=== PATIENT | female | born 1960 | race Caucasian/White ===

== ENCOUNTER → 2018-01-14 | Outpatient (CLI) | payer BC ==
--- NOTE | 2018-01-18 08:03 | PE ---
EXAMINATION TYPE: PET CT fusion skull to thigh DATE OF EXAM: 01/14/2018 COMPARISON: Chest radiograph dated 02/14/2017 HISTORY: Non-small cell lung cancer. Initial staging examination/initial treatment strategy (PI). No history of chemotherapy or radiation. Prior lung biopsy and 12/29/2017 TECHNIQUE: Following the intravenous administration of 13.81 mCi of F-18 FDG, whole body images are performed from the skull base to the midthigh. Images are reviewed on the computer in the coronal, a xial, and sagittal planes. Reconstructed rotating images are created on independent workstation and reviewed on the computer. A localization and attenuation correction CT is performed in conjunction with the PET scan. SCAN: Initial FINDINGS: SKULL BASE AND NECK: There is a hypermetabolic 8 mm short axis right periparotid lymph node posterio r to the angle of mandible at level Ib. With hypermetabolic activity and a maximum SUV of 9.2. CHEST, MEDIASTINUM, AND HILAR REGION: Background aortic mediastinal uptake is 2.17. The patient's kno wn non-small cell lung carcinoma blends into the mediastinum and is poorly measured with downstream o bstructive atelectasis of the anterior segments of the left upper lobe. This mass and adenopathy david uring at least 4.9 x 5.5 cm with concern for invasion into the pericardium such as on image 95. There is encasement of the left main pulmonary artery and extensive left hilar and suprahilar adenopathy. The mass has a maximum SUV measuring up to 15.79. The maximum SUV of the left hilar adenopathy is 10. 37. Conglomeration of nodes measuring at least 5.6 x 3.7 cm in the left suprahilar region. No right-s ided hilar hypermetabolic adenopathy is identified with the largest right hilar lymph node measuring 6 mm in short axis. Precarinal lymph node as in maximum SUV of 5.22 and measures 9 mm in short axis. Hypermetabolic is seen in the left neck musculature and venous structures measuring 2.88 and 2.76, ju st above mediastinal background. Focal hypermetabolic activity is also seen within the high left para spinal musculature at the level of the hyoid bone on the left with a maximum SUV of 2.82, the right p araspinal musculature at the mid thoracic level with a maximum SUV of 5.99 and at the mid left thorac ic level with a maximum SUV of 4.37. These areas are pronounced on the mid image. ABDOMEN AND PELVIS: No suspicious hypermetabolic uptake. OSSEOUS STRUCTURES: No suspicious hypermetabolic uptake. OTHER CT: Pleural parenchymal scarring is seen at the left lung base. Scattered areas of subsegmental atelectasis are noted. There is mild to moderate background centrilobular emphysematous change. Ther e are no suspicious osseous lesions identified. Trace pericardial effusion is seen anteriorly. There is a small hiatal hernia. Unenhanced abdominal viscera are grossly unremarkable. Small splenules are seen adjacent to the [place] spleen. Moderate calcific atheromatous changes of the abdominal aorta are noted. No evidence of adenopathy within the abdomen or pelvis. The bowel is nondilated. IMPRESSION: Strongly hypermetabolic left T3 hilar and suprahilar 5.5 cm pulmonary neoplasm appearing to invade at least the pericardium with extensive surrounding left hilar hypermetabolic adenopathy an d a strongly hypermetabolic right periparotid lymph node (N3). No evidence of visceral metastasis wit hin the abdomen or pelvis or pulmonary metastasis, however there are multilevel hypermetabolic foci w ithin the paraspinal musculature of the thoracic and cervical spine that are also suspicious for meta stasis. Thoracic MR without and with contrast could be performed for further evaluation.
== END | disposition home or self-care (01) ==
LOC: RADPETMAIN 16:53
PROVIDERS: ATTEND Internal Medicine Critical Care Medicine
DX: C34.90 Malignant neoplasm of unspecified part of unspecified bronchus or lung (principal); R93.7 Abnormal findings on diagnostic imaging of other parts of musculoskeletal system
CPT/HCPCS: 78815; A9552

== ENCOUNTER → 2018-01-19 | Outpatient (CLI) | payer BC ==
[2018-01-19 09:44] LABS: Blood Urea Nitrogen 13 mg/dL (7-17)
--- NOTE | 2018-01-19 10:30 | CT ---
EXAMINATION TYPE: CT brain wo/w con DATE OF EXAM: 01/19/2018 COMPARISON: NONE HISTORY: Lung cancer CT DLP: 2071mGycm CONTRAST: CT scan of the head is performed without and with IV Contrast, patient injected with 100 mL of Omnipa que 300. Unenhanced followed by contrast enhanced CT of the brain is submitted for evaluation. The ventricles are midline. There is no evidence for intracranial hemorrhage or extra-axial collection. No mass e ffects are identified. Visualized bony calvarium is intact. Contrast subsequently Mr. and there are may be subtle areas of leptomeningeal enhancement right parietal and left frontal regions. Further ev aluation with MRI is advised. IMPRESSION: 1. No enhancing mass is identified however I cannot exclude the vague leptomeningeal enhancement. I d o recommend further evaluation with MRI of the brain with and without contrast.
== END | disposition home or self-care (01) ==
LOC: RADCTMAIN 09:05
PROVIDERS: ATTEND Radiology Radiation Oncology
DX: C34.12 Malignant neoplasm of upper lobe, left bronchus or lung (principal); J30.2 Other seasonal allergic rhinitis
CPT/HCPCS: 82565; 84520; 70470; 36415; Q9967

== ENCOUNTER → 2018-01-20 | Day surgery (SDC) | payer BC ==
[~2018-01-20] MED LIST: LIDOCAINE 2% INJ 20 MG/ML SQ ONE
[2018-01-20 10:22] VITALS: RESP 18
[2018-01-20 11:52] VITALS: TEMP 98
[2018-01-20 12:58] VITALS: BP 125/76; PULSE 122
--- NOTE | 2018-01-20 13:01 | IR ---
PICC LINE PLACEMENT: HISTORY: Infection requiring long-term antibiotic therapy PROCEDURE: Ultrasound and fluoroscopic guidance of PICC line placement. COMPLICATIONS: None ANESTHESIA: 1. 1% Lidocaine locally. FINDINGS/TECHNIQUE: The procedure was explained to the patient. The risks, complications, benefits and alternatives were discussed and any questions were answered. Informed consent was obtained. The patient was placed supine on the fluoroscopic table and prepped and draped in the usual sterile [facility] ion. Utilizing a 21 gauge needle and sonographic and fluoroscopic guidance, access in the vein was achieved and there is placement of a 0.018 guidewire. The vein is patent. A 4-F sheath was placed o zafar the guidewire. The guidewire and dilator were removed and a 4-F. PICC line was placed through th e sheath with the tip at the level of the SVC. The sheath was removed, the catheter was flushed and sutured into position. The patient was stable throughout the procedure and remained stable upon disc harge from the Department of Radiology. The vein puncture was patent under ultrasound. A edge scale image was obtained to document patency of the vein punctured. All elements of the maximal barrier technique were utilized. FLUOROSCOPY TIME: 0.1 minute, one image submitted IMPRESSION: Successful PICC line placement under ultrasound and fluoroscopic guidance.
== END ==
LOC: CATHCVL 09:22
PROVIDERS: ATTEND Radiology Diagnostic Radiology
DX: C34.02 Malignant neoplasm of left main bronchus (principal); J43.9 Emphysema, unspecified; Z87.891 Personal history of nicotine dependence; Z80.3 Family history of malignant neoplasm of breast; Z83.2 Family history of diseases of the blood and blood-forming organs and certain disorders involving the immune mechanism; Z79.82 Long term (current) use of aspirin; Z79.52 Long term (current) use of systemic steroids; Z79.899 Other long term (current) drug therapy; Z88.6 Allergy status to analgesic agent
CPT/HCPCS: 36569; 76937; 77001; C1751; C1769; J2001

== ENCOUNTER → 2018-02-22 | Outpatient (CLI) | payer BC ==
--- NOTE | 2018-02-23 11:37 | ECHOF ---
Referral Reason:Z01.818 preprocedural examination MEASUREMENTS -------- HEIGHT: 162.6 cm WEIGHT: 59.9 kg BP: 119/64 RVIDd: 3.1 cm (< 3.3) IVSd: 0.8 cm (0.6 - 1.1) LVIDd: 4.7 cm (3.9 - 5.3) LVPWd: 1.0 cm (0.6 - 1.1) IVSs: 1.0 cm LVIDs: 2.5 cm LVPWs: 1.2 cm LAESV Index (A-L): 26.11 ml/m Ao Diam: 2.7 cm (2.0 - 3.7) AV Cusp: 1.8 cm (1.5 - 2.6) LA Diam: 2.5 cm (2.7 - 3.8) EPSS: 0.2 cm MV E Tyree: 1.11 m/s MV DecT: 236 ms MV A Tyree: 1.13 m/s MV E/A Ratio: 0.99 RAP: 10.00 mmHg RVSP: 46.71 mmHg MV EF SLOPE: 134.47 mm/s (70 - 150) MV EXCURSION: 1.89 cm (> 18.000) FINDINGS -------- Resting tachycardia (HR>100bpm). This was a technically adequate study. The left ventricular size is normal. Left ventricular wall thickness is normal. Overall left vent ricular systolic function is normal with, an EF between 55 - 60 %. The right ventricle is mildly enlarged. Normal LA size by volume 22+/-6 ml/m2. RA appears enlarged. Aortic valve is trileaflet and is mildly thickened. There is no evidence of aortic regurgitation. There is no evidence of aortic stenosis. The mitral valve leaflets are mildly thickened. There is trace to mild mitral regurgitation. Mild tricuspid regurgitation present. There is mild pulmonary hypertension. The right ventricular systolic pressure, as measured by Doppler, is 46.71mmHg. Trace/mild (physiologic) pulmonic regurgitation. The aortic root size is normal. The IVC is dilated with normal collapse. There is a small pericardial effusion is located near the right ventricle. CONCLUSIONS -------- 1. Resting tachycardia (HR>100bpm). 2. This was a technically adequate study. 3. The left ventricular size is normal. 4. Left ventricular wall thickness is normal. 5. Overall left ventricular systolic function is normal with, an EF between 55 - 60 %. 6. The right ventricle is mildly enlarged. 7. Normal LA size by volume 22+/-6 ml/m2. 8. RA appears enlarged. 9. Aortic valve is trileaflet and is mildly thickened. 10. The mitral valve leaflets are mildly thickened. 11. There is trace to mild mitral regurgitation. 12. Mild tricuspid regurgitation present. 13. There is mild pulmonary hypertension. 14. The right ventricular systolic pressure, as measured by Doppler, is 46.71mmHg. 15. Trace/mild (physiologic) pulmonic regurgitation. 16. The aortic root size is normal. 17. The IVC is dilated with normal collapse. 18. There is a small pericardial effusion is located near the right ventricle. DEPUTY CHIEF COUNSEL: Bobby Conroy RDCS
== END | disposition home or self-care (01) ==
LOC: RADECHMAIN 11:06
PROVIDERS: ATTEND Nurse Practitioner Adult Health
DX: Z01.818 Encounter for other preprocedural examination (principal); I08.3 Combined rheumatic disorders of mitral, aortic and tricuspid valves; I27.20 Pulmonary hypertension, unspecified; I31.3 Pericardial effusion (noninflammatory); Z88.6 Allergy status to analgesic agent
CPT/HCPCS: 93306

== ENCOUNTER 2018-03-06 08:46 | Inpatient (IN) | payer BC ==
[2018-03-06] MEDS ORDERED: methylPREDNISolone SOD SUCCI 125 MG/2 ML VIAL IV STA (09:06)
[2018-03-06] MEDS ORDERED: SODIUM CHLORIDE 0.9% 500 ML IV STA (09:06)
[2018-03-06] MEDS ORDERED: ALBUTEROL NEBULIZED 2.5 MG/3 ML INHALATION STA (09:06)
[2018-03-06] MEDS ORDERED: IPRATROPIUM 0.5 MG/2.5 ML NEBU INHALATION STA (09:06)
--- NOTE | 2018-03-06 09:12 | ED ---
General Adult HPI - General Chief complaint: Shortness of Breath Stated complaint: Hypotensive Time Seen by Provider: 03/06/18 08:54 Source: patient, RN/MD, RN notes reviewed Mode of arrival: wheelchair Limitations: no limitations - History of Present Illness Initial comments: 57-year-old female presenting from her oncologist office for evaluation. Patient was noted to be hypotensive with worsening dyspnea. She states over the past 4 days her bleeding has significantly worsen, she's had cough which is productive and exertional dyspnea. Patient has history of lung cancer, she is currently on chemo and radiation. Most recent chemotherapy was one week ago. She states she did have a fever on Tuesday of 103. She has been feeling generally weak. She did have 2 episodes of vomiting over the last 4 days. No abdominal pain. She has some chest pain which is been constant since beginning radiation therapy. - Related Data Home Medications Medication Instructions Recorded Confirmed Aspirin 81 mg PO DAILY 01/20/18 03/06/18 Ergocalciferol (Vitamin D2) 50,000 unit PO BLAKE 01/20/18 03/06/18 [Vitamin D2] Famotidine 20 mg PO DAILY 01/20/18 03/06/18 Naproxen 500 mg PO DAILY PRN 01/20/18 03/06/18 Thiamine [Vitamin B-1] 50 mg PO DAILY 01/20/18 03/06/18 Albuterol Inhaler [Ventolin Hfa 1 - 2 puff INHALATION RT-QID PRN 03/06/18 Inhaler] Albuterol Nebulized [Ventolin 2.5 mg INHALATION RT-QID PRN 03/06/18 03/06/18 Nebulized] Ferrous Sulfate [Feosol] 325 mg PO DAILY 03/06/18 03/06/18 Fluticasone/Salmeterol [Advair 1 puff INHALATION RT-BID 03/06/18 03/06/18 500-50 Diskus] Tiotropium Tyler [Spiriva] 1 cap INHALATION RT-DAILY 03/06/18 03/06/18 Allergies Allergy/AdvReac Type Severity Reaction Status Date / Time ibuprofen Allergy BP DROPPED Verified 03/06/18 09:51 Review of Systems ROS Statement: Those systems with pertinent positive or pertinent negative responses have been documented in the HPI. ROS Other: All systems not noted in ROS Statement are negative. Past Medical History Past Medical History: Cancer, COPD Additional Past Medical History / Comment(s): lung cancer History of Any Multi-Drug Resistant Organisms: None Reported Past Surgical History: Section Past Psychological History: No Psychological Hx Reported Smoking Status: Former smoker Past Alcohol Use History: None Reported Past Drug Use History: None Reported - Past Family History Father History Unknown: Yes Mother Additional Family Medical History / Comment(s): Mother was obese. She about age 75yrs. General Exam Limitations: no limitations General appearance: alert, in distress Head exam: Present: atraumatic, normocephalic Eye exam: Present: normal appearance, PERRL, EOMI ENT exam: Present: mucous membranes dry Neck exam: Present: normal inspection. Absent: tenderness, meningismus Respiratory exam: Present: wheezes, rhonchi (Left lower lobe rhonchi), decreased breath sounds Cardiovascular Exam: Present: normal rhythm, tachycardia GI/Abdominal exam: Present: soft. Absent: distended, tenderness Extremities exam: Present: normal inspection, normal capillary refill. Absent: pedal edema, calf tenderness Neurological exam: Present: alert, oriented X3, CN II-XII intact. Absent: motor sensory deficit Psychiatric exam: Present: normal affect, normal mood Skin exam: Present: warm, dry, intact. Absent: cyanosis, diaphoretic Course Vital Signs 03/06/18 03/06/18 03/06/18 08:49 09:01 09:48 Temperature 97.7 F Pulse Rate 113 H 94 Respiratory 26 H 22 18 Rate Blood Pressure 90/42 95/50 O2 Sat by Pulse 98 100 Oximetry 03/06/18 03/06/18 03/06/18 10:07 10:21 10:25 Temperature Pulse Rate 96 97 96 Respiratory 16 16 Rate Blood Pressure 100/59 O2 Sat by Pulse 100 Oximetry 03/06/18 03/06/18 03/06/18 11:00 12:00 13:00 Temperature Pulse Rate 111 H 110 H 110 H Respiratory 16 18 20 Rate Blood Pressure 105/55 109/60 99/52 O2 Sat by Pulse 100 97 99 Oximetry 03/06/18 03/06/18 03/06/18 14:23 14:33 15:03 Temperature 97.2 F L 97.3 F L 98.2 F Pulse Rate 108 H 107 H 106 H Respiratory 18 20 16 Rate Blood Pressure 99/54 101/55 97/54 O2 Sat by Pulse 99 Oximetry 03/06/18 03/06/18 03/06/18 16:07 16:20 16:30 Temperature 98.1 F 97.2 F L Pulse Rate 105 H 98 119 H Respiratory 16 16 16 Rate Blood Pressure 97/52 92/53 96/54 O2 Sat by Pulse 99 98 100 Oximetry EKG Findings - EKG Comments: EKG Findings:: EKG, sinus tachycardia, rightward axis, nonspecific intraventricular block, rate of 101, UT interval 186, QRS duration 126, QTC prolonged at 570. Medical Decision Making - Medical Decision Making 57-year-old female presenting with dyspnea, history of fever, and generalized weakness. Patient is found to have a hemoglobin of 5.4, she is also profoundly leukopenic with a total white blood cell count of 0.1. Patient does not have fever here however she did have history of fever, blood culture urine culture pending. Patient is started on antibiotics including cefepime and vancomycin in the emergency department. Hemoglobin is 5.4, she is given 2 units of packed RBCs. Potassium low at 3.1 which is replaced. Lactic 2.6, patient currently receiving IV hydration. Patient will be admitted for further treatment of pancytopenia, including leukopenia and concern for neutropenic fever. Case discussed with Dr. Field who will accept admission - Lab Data Result diagrams: 03/06/18 09:11 03/06/18 09:11 Lab Results 03/06/18 03/06/18 03/06/18 Range/Units 09:11 09:11 09:11 WBC (3.8-10.6) k/uL RBC (3.80-5.40) m/uL Hgb (11.4-16.0) gm/dL Hct (34.0-46.0) % MCV (80.0-100.0) fL MCH (25.0-35.0) pg MCHC (31.0-37.0) g/dL RDW (11.5-15.5) % Plt Count (150-450) k/uL Differential Comment Hyperchromasia Poikilocytosis Anisocytosis (manual) PT (9.0-12.0) sec INR (<1.2) APTT (22.0-30.0) sec Sodium 132 L (137-145) mmol/L Potassium 3.1 L (3.5-5.1) mmol/L Chloride 94 L (98-107) mmol/L Carbon Dioxide 23 (22-30) mmol/L Anion Gap 15 mmol/L BUN 24 H (7-17) mg/dL Creatinine 0.84 (0.52-1.04) mg/dL Est GFR (CKD-EPI)AfAm 89 (>60 ml/min/1.73 sqM) Est GFR (CKD-EPI)NonAf 77 (>60 ml/min/1.73 sqM) Glucose 121 H (74-99) mg/dL Lactic Ac Sepsis Rflx Plasma Lactic Acid Amrit 2.6 H* (0.7-2.0) mmol/L Calcium 9.1 (8.4-10.2) mg/dL Magnesium 1.6 (1.6-2.3) mg/dL Total Bilirubin 2.8 H (0.2-1.3) mg/dL AST 20 (14-36) U/L ALT 28 (9-52) U/L Alkaline Phosphatase 68 (38-126) U/L Total Creatine Kinase 20 L (30-135) U/L CK-MB (CK-2) 0.3 (0.0-2.4) ng/mL CK-MB (CK-2) Rel Index 1.5 Troponin I <0.012 (0.000-0.034) ng/mL NT-Pro-B Natriuret Pep pg/mL Total Protein 6.1 L (6.3-8.2) g/dL Albumin 3.4 L (3.5-5.0) g/dL Influenza Type A RNA (Not Detectd) Influenza Type B (PCR) (Not Detectd) Blood Type Blood Type Confirm Blood Type Recheck Antibody Screen Crossmatch Spec Expiration Date 03/06/18 03/06/18 03/06/18 Range/Units 09:11 09:11 09:11 WBC 0.1 L* (3.8-10.6) k/uL RBC 1.85 L (3.80-5.40) m/uL Hgb 5.4 L* (11.4-16.0) gm/dL Hct 14.5 L* (34.0-46.0) % MCV 78.1 L (80.0-100.0) fL MCH 29.2 (25.0-35.0) pg MCHC 37.4 H (31.0-37.0) g/dL RDW 12.4 (11.5-15.5) % Plt Count 14 L* (150-450) k/uL Differential Comment Hyperchromasia Moderate Poikilocytosis Slight Anisocytosis (manual) Present PT 10.7 (9.0-12.0) sec INR 1.1 (<1.2) APTT 22.2 (22.0-30.0) sec Sodium (137-145) mmol/L Potassium (3.5-5.1) mmol/L Chloride (98-107) mmol/L Carbon Dioxide (22-30) mmol/L Anion Gap mmol/L BUN (7-17) mg/dL Creatinine (0.52-1.04) mg/dL Est GFR (CKD-EPI)AfAm (>60 ml/min/1.73 sqM) Est GFR (CKD-EPI)NonAf (>60 ml/min/1.73 sqM) Glucose (74-99) mg/dL Lactic Ac Sepsis Rflx Plasma Lactic Acid Amrit (0.7-2.0) mmol/L Calcium (8.4-10.2) mg/dL Magnesium (1.6-2.3) mg/dL Total Bilirubin (0.2-1.3) mg/dL AST (14-36) U/L ALT (9-52) U/L Alkaline Phosphatase (38-126) U/L Total Creatine Kinase (30-135) U/L CK-MB (CK-2) (0.0-2.4) ng/mL CK-MB (CK-2) Rel Index Troponin I (0.000-0.034) ng/mL NT-Pro-B Natriuret Pep 889 pg/mL Total Protein (6.3-8.2) g/dL Albumin (3.5-5.0) g/dL Influenza Type A RNA (Not Detectd) Influenza Type B (PCR) (Not Detectd) Blood Type Blood Type Confirm Blood Type Recheck Antibody Screen Crossmatch Spec Expiration Date 03/06/18 03/06/18 03/06/18 Range/Units 09:11 09:41 09:50 WBC (3.8-10.6) k/uL RBC (3.80-5.40) m/uL Hgb (11.4-16.0) gm/dL Hct (34.0-46.0) % MCV (80.0-100.0) fL MCH (25.0-35.0) pg MCHC (31.0-37.0) g/dL RDW (11.5-15.5) % Plt Count (150-450) k/uL Differential Comment Hyperchromasia Poikilocytosis Anisocytosis (manual) PT (9.0-12.0) sec INR (<1.2) APTT (22.0-30.0) sec Sodium (137-145) mmol/L Potassium (3.5-5.1) mmol/L Chloride (98-107) mmol/L Carbon Dioxide (22-30) mmol/L Anion Gap mmol/L BUN (7-17) mg/dL Creatinine (0.52-1.04) mg/dL Est GFR (CKD-EPI)AfAm (>60 ml/min/1.73 sqM) Est GFR (CKD-EPI)NonAf (>60 ml/min/1.73 sqM) Glucose (74-99) mg/dL Lactic Ac Sepsis Rflx Y Plasma Lactic Acid Amrit (0.7-2.0) mmol/L Calcium (8.4-10.2) mg/dL Magnesium (1.6-2.3) mg/dL Total Bilirubin (0.2-1.3) mg/dL AST (14-36) U/L ALT (9-52) U/L Alkaline Phosphatase (38-126) U/L Total Creatine Kinase (30-135) U/L CK-MB (CK-2) (0.0-2.4) ng/mL CK-MB (CK-2) Rel Index Troponin I (0.000-0.034) ng/mL NT-Pro-B Natriuret Pep pg/mL Total Protein (6.3-8.2) g/dL Albumin (3.5-5.0) g/dL Influenza Type A RNA Not Detected (Not Detectd) Influenza Type B (PCR) Not Detected (Not Detectd) Blood Type Blood Type Confirm B Positive Blood Type Recheck Antibody Screen Crossmatch Spec Expiration Date 03/06/18 Range/Units 10:20 WBC (3.8-10.6) k/uL RBC (3.80-5.40) m/uL Hgb (11.4-16.0) gm/dL Hct (34.0-46.0) % MCV (80.0-100.0) fL MCH (25.0-35.0) pg MCHC (31.0-37.0) g/dL RDW (11.5-15.5) % Plt Count (150-450) k/uL Differential Comment Hyperchromasia Poikilocytosis Anisocytosis (manual) PT (9.0-12.0) sec INR (<1.2) APTT (22.0-30.0) sec Sodium (137-145) mmol/L Potassium (3.5-5.1) mmol/L Chloride (98-107) mmol/L Carbon Dioxide (22-30) mmol/L Anion Gap mmol/L BUN (7-17) mg/dL Creatinine (0.52-1.04) mg/dL Est GFR (CKD-EPI)AfAm (>60 ml/min/1.73 sqM) Est GFR (CKD-EPI)NonAf (>60 ml/min/1.73 sqM) Glucose (74-99) mg/dL Lactic Ac Sepsis Rflx Plasma Lactic Acid Amrit (0.7-2.0) mmol/L Calcium (8.4-10.2) mg/dL Magnesium (1.6-2.3) mg/dL Total Bilirubin (0.2-1.3) mg/dL AST (14-36) U/L ALT (9-52) U/L Alkaline Phosphatase (38-126) U/L Total Creatine Kinase (30-135) U/L CK-MB (CK-2) (0.0-2.4) ng/mL CK-MB (CK-2) Rel Index Troponin I (0.000-0.034) ng/mL NT-Pro-B Natriuret Pep pg/mL Total Protein (6.3-8.2) g/dL Albumin (3.5-5.0) g/dL Influenza Type A RNA (Not Detectd) Influenza Type B (PCR) (Not Detectd) Blood Type B Positive Blood Type Confirm Blood Type Recheck CABO Indicated Antibody Screen NEGATIVE Crossmatch See Detail Spec Expiration Date 03/09/20182319 Disposition Clinical Impression: Neutropenia, Anemia Disposition: ADMITTED IP TO THIS HOSP Is patient prescribed a controlled substance at discharge?: No Decision to Admit Reason: Admit from EC Decision Date: 03/06/18
[2018-03-06] MEDS: SODIUM CHLORIDE 0.9% 1,000 ML IV STA ×2 (09:15→18:24)
[2018-03-06 09:24] LABS: Hyperchromasia Moderate; MCH 29.2 pg (25.0-35.0); MCHC 37.4 g/dL (31.0-37.0); MCV 78.1 fL (80.0-100.0); Mean Platelet Volume 9.7; Poikilocytosis Slight; RBC 1.85 m/uL (3.80-5.40); RDW 12.4 % (11.5-15.5)
[2018-03-06 09:30] LABS: INR 1.1 (<1.2); Partial Thromboplastin Time 22.2 sec (22.0-30.0); Prothrombin Time 10.7 sec (9.0-12.0)
[2018-03-06 09:38] LABS: Albumin 3.4 g/dL (3.5-5.0); Calcium 9.1 mg/dL (8.4-10.2); Magnesium 1.6 mg/dL (1.6-2.3); Potassium 3.1 mmol/L (3.5-5.1); Total Bilirubin 2.8 mg/dL (0.2-1.3); Total Protein 6.1 g/dL (6.3-8.2)
[2018-03-06 09:42] LABS: Creatine Kinase 20 U/L (30-135)
[2018-03-06 09:54] LABS: Creatine Kinase MB 0.3 ng/mL (0.0-2.4); Troponin I <0.012 ng/mL (0.000-0.034)
--- NOTE | 2018-03-06 09:54 | XR ---
EXAMINATION TYPE: XR chest 2V DATE OF EXAM: 03/06/2018 COMPARISON: Prior chest x-ray dated 02/14/2017 HISTORY: Difficulty breathing TECHNIQUE: Frontal and lateral views of the chest are obtained. FINDINGS: Prominent lung volumes are again noted. Findings suggest COPD. No evident pneumothorax. Th ere are overlying cardiac leads. Left upper lobe atelectatic changes are present. Finding loss presen t in the left hemithorax. Heart size is stable. IMPRESSION: Left upper lobe atelectasis. Follow-up suggested, consider CT as indicated.
[2018-03-06 10:02] LABS: WBC 0.1 k/uL (3.8-10.6)
[2018-03-06 10:03] LABS: HCT 14.5 % (34.0-46.0); HGB 5.4 gm/dL (11.4-16.0); Platelet Count 14 k/uL (150-450)
[2018-03-06] MEDS ORDERED: CEFEPIME 2 GM in SODIUM CHLORIDE 0.9% 50 ML IVPB STA (10:06)
[2018-03-06] MEDS ORDERED: VANCOMYCIN IV PER PHARMACY 1 EACH MISC MISCELLANE PRN (10:07)
[2018-03-06] MEDS ORDERED: VANCOMYCIN 1,000 MG in SODIUM CHLORIDE 0.9% 250 ML IVPB STA (10:12)
[2018-03-06] MEDS: POTASSIUM CHLORIDE 20 MEQ in WATER FOR INJECTION 1 100ML.BAG IVPB SCH ×2 (10:24→13:41)
[2018-03-06 10:40] LABS: Anisocytosis (M) Present
[2018-03-06] MEDS ORDERED: NALOXONE 0.4 MG/ML 1 ML VIAL IV PRN (10:44)
[2018-03-06] MEDS ORDERED: ACETAMINOPHEN TAB 325 MG TAB PO PRN (10:44)
[2018-03-06] MEDS ORDERED: RX INFO: IV CONTRAST WAS GIVEN 1 EACH MISC MISCELLANE PRN (17:50)
[2018-03-06] MEDS ORDERED: SODIUM CHLORIDE 0.9% 1,000 ML IV ONE (17:53)
[2018-03-06] MEDS: IPRATROPIUM 0.5 MG/2.5 ML NEBU INHALATION SCH ×2 (18:31→19:23)
[2018-03-06] MEDS: ALBUTEROL NEB (CONC) 2.5 MG/0.5 ML INHALATION SCH ×2 (18:31→19:23)
[2018-03-06] MEDS: FLUCONAZOLE 100 MG TAB PO SCH (18:37)
[2018-03-06] MEDS: CEFEPIME 2 GM in SODIUM CHLORIDE 0.9% 50 ML IVPB SCH (18:37)
[2018-03-06] MEDS: MAG HYDROX/AL HYDROX/SIMETH 30 ML, diphenhydrAMINE ELIXIR 75 MG, LIDOCAINE VISCOUS 30 ML PO SCH ×9 (19:12→20:43)
[2018-03-06] MEDS: SYMBICORT 160-4.5 MCG INHALER INHALATION SCH (19:23)
[2018-03-06 19:54] LABS: Appearance,Urine Clear (Clear); Bacteria,Urine Occasional /hpf; Bilirubin,Urine Negative (Negative); Blood,Urine Negative (Negative); Cellular Casts,Urine 3 /lpf (0); Color,Urine Yellow; Glucose,Urine (UA) Trace (Negative); Granular Casts,Urine 1 /lpf (0); Hyaline Casts,Urine 5 /lpf (0-2); Ketones,Urine 2+ (Negative); Leukocyte Esterase,Urine Negative (Negative); Mucus,Urine Rare /hpf; Nitrite,Urine Negative (Negative); PH, Urine 5.5 (5.0-8.0); Protein,Urine 1+ (Negative); RBC,Urine 3 /hpf (0-5); Specific Gravity,Urine 1.018 (1.001-1.035); Squamous Epithelial Cell,Urine 1 /hpf (0-4); Urobilinogen,Urine <2.0 mg/dL (<2.0); WBC,Urine 3 /hpf (0-5)
[2018-03-06] MEDS ORDERED: IPRATROPIUM-ALBUTEROL 3 ML NEB INHALATION PRN (20:24)
[2018-03-06] MEDS: HYDROcodone/APAP 5-325MG 1 EACH TAB PO PRN (20:42)
[2018-03-06] MEDS: VANCOMYCIN 1,000 MG in SODIUM CHLORIDE 0.9% 250 ML IVPB SCH (20:43)
[2018-03-06] MEDS: NYSTATIN 100,000 UNIT/ML SUSP 500,000 UNIT/5 ML CUP PO SCH ×2 (20:43→21:19)
[2018-03-06] MEDS: ONDANSETRON 4 MG/2 ML VIAL IVP PRN (20:56)
[2018-03-07] MEDS: HYDROcodone/APAP 5-325MG 1 EACH TAB PO PRN ×3 (03:03→16:10)
[2018-03-07] MEDS: CEFEPIME 2 GM in SODIUM CHLORIDE 0.9% 50 ML IVPB SCH ×3 (03:03→18:21)
[2018-03-07] MEDS: VANCOMYCIN 1,000 MG in SODIUM CHLORIDE 0.9% 250 ML IVPB SCH ×2 (07:52→16:08)
[2018-03-07 08:08] LABS: MCH 28.3 pg (25.0-35.0); MCHC 34.5 g/dL (31.0-37.0); Mean Platelet Volume 9.5; Poikilocytosis Slight; RBC 2.28 m/uL (3.80-5.40); RDW 13.4 % (11.5-15.5)
[2018-03-07 08:11] LABS: ALT 26 U/L (9-52); AST 14 U/L (14-36); Albumin 2.8 g/dL (3.5-5.0); Alkaline Phosphatase 48 U/L (38-126); Anion Gap 10 mmol/L; Blood Urea Nitrogen 23 mg/dL (7-17); Calcium 8.2 mg/dL (8.4-10.2); Carbon Dioxide 21 mmol/L (22-30); Chloride 106 mmol/L (98-107); Glucose 102 mg/dL (74-99); Magnesium 1.5 mg/dL (1.6-2.3); Potassium 3.4 mmol/L (3.5-5.1); Sodium 137 mmol/L (137-145); Total Bilirubin 1.9 mg/dL (0.2-1.3); Total Protein 5.2 g/dL (6.3-8.2)
--- NOTE | 2018-03-07 08:11 | P.HPIM ---
History of Present Illness H&P Date: 03/06/18 Chief Complaint: Worsening shortness of breath This is a 57-year-old female, patient of Dr. Mota. She has a known past medical history of lung cancer that was just diagnosed December 2016. Patient has been on chemo and radiation treatment beginning in January. She finished chemotherapy about a week ago. She had radiation treatment scheduled for today. When she went into her appointment she was told that she wasn't looking well and to go to the emergency room. Patient reports feeling short of breath having occasional cough. On Tuesday she did have a fever of 103. But then the fever broke and on Tuesday her temp was around 99. On admission she's been afebrile. Her CBC shows a hemoglobin of 5.4 white count 0.1 platelets 14. She' s receiving 2 units of blood. And oncology has ordered zarxio for her neutropenia. Chest x-ray left upper lobe atelectasis. Urinalysis and blood culture are pending. Patient was started on cefepime and vancomycin in the emergency room. Oncology, infectious disease and pulmonary services have been consulted. Patient does admit to having some sinus congestion that started today. Denies any burning with urination denies any diarrhea. She does admit to having a couple episodes of vomiting one on Tuesday and then again on Tuesday. Denies any sick contacts. Potassium is low and she is receiving supplement in the ER. Review of Systems Please refer to HPI otherwise unremarkable Past Medical History Past Medical History: Cancer, COPD, GERD/Reflux Additional Past Medical History / Comment(s): L lung cancer with chemo and radiation treatments, last chemo 1 week ago and last radiation 03/02/18. History of Any Multi-Drug Resistant Organisms: None Reported Past Surgical History: Section Additional Past Surgical History / Comment(s): 01/20/18 PICC line insertion, bronchoscopy, colonoscopy, R lower jaw surgery for TMJ, x 2. Past Anesthesia/Blood Transfusion Reactions: Motion Sickness Smoking Status: Former smoker - Past Family History Father History Unknown: Yes Mother Additional Family Medical History / Comment(s): Mother was obese. She about age 75yrs. Medications and Allergies Home Medications Medication Instructions Recorded Confirmed Type Aspirin 81 mg PO DAILY 01/20/18 03/06/18 History Ergocalciferol (Vitamin D2) 50,000 unit PO BLAKE 01/20/18 03/06/18 History [Vitamin D2] Famotidine 20 mg PO DAILY 01/20/18 03/06/18 History Naproxen 500 mg PO DAILY PRN 01/20/18 03/06/18 History Thiamine [Vitamin B-1] 50 mg PO DAILY 01/20/18 03/06/18 History Albuterol Inhaler [Ventolin Hfa 1 - 2 puff INHALATION RT-QID PRN 03/06/18 History Inhaler] Albuterol Nebulized [Ventolin 2.5 mg INHALATION RT-QID PRN 03/06/18 03/06/18 History Nebulized] Ferrous Sulfate [Feosol] 325 mg PO DAILY 03/06/18 03/06/18 History Fluticasone/Salmeterol [Advair 1 puff INHALATION RT-BID 03/06/18 03/06/18 History 500-50 Diskus] Tiotropium [place] [Spiriva] 1 cap INHALATION RT-DAILY 03/06/18 03/06/18 History Allergies Allergy/AdvReac Type Severity Reaction Status Date / Time ibuprofen Allergy BP DROPPED Verified 03/06/18 09:51 Physical Exam Vitals: Vital Signs Temp Pulse Resp BP Pulse Ox 03/06/18 14:33 97.3 F L 107 H 20 101/55 03/06/18 14:23 97.2 F L 108 H 18 99/54 99 03/06/18 13:00 110 H 20 99/52 99 03/06/18 12:00 110 H 18 109/60 97 03/06/18 11:00 111 H 16 105/55 100 03/06/18 10:25 96 03/06/18 10:21 97 16 100/59 100 03/06/18 10:07 96 16 03/06/18 09:48 94 18 95/50 100 03/06/18 09:01 22 03/06/18 08:49 97.7 F 113 H 26 H 90/42 98 Intake and Output 03/06/18 03/06/18 03/06/18 06:59 14:59 22:59 Intake Total 0 Balance 0 Intake: Blood Product 0 Rc As-1 Unit 0 [id number] Other: Weight 55.338 kg Mouth evidence of oral candidiasis Head normocephalic Neck supple Lungs few coarse breath sounds on the left. Short of breath with talking Heart regular rate and rhythm S1-S2, no rub or gallop Abdomen is soft nontender nondistended positive bowel sounds no hepatosplenomegaly Extremities no edema Neuro alert and orientated to 3 Results CBC & Chem 7: 03/06/18 09:11 03/06/18 09:11 Labs: Abnormal Lab Results - Last 24 Hours (Table) 03/06/18 03/06/18 03/06/18 Range/Units 09:11 09:11 09:11 WBC (3.8-10.6) k/uL RBC (3.80-5.40) m/uL Hgb (11.4-16.0) gm/dL Hct (34.0-46.0) % MCV (80.0-100.0) fL MCHC (31.0-37.0) g/dL Plt Count (150-450) k/uL Sodium 132 L (137-145) mmol/L Potassium 3.1 L (3.5-5.1) mmol/L Chloride 94 L (98-107) mmol/L BUN 24 H (7-17) mg/dL Glucose 121 H (74-99) mg/dL Plasma Lactic Acid Amrit 2.6 H* (0.7-2.0) mmol/L Total Bilirubin 2.8 H (0.2-1.3) mg/dL Total Creatine Kinase 20 L (30-135) U/L Total Protein 6.1 L (6.3-8.2) g/dL Albumin 3.4 L (3.5-5.0) g/dL Crossmatch 03/06/18 03/06/18 Range/Units 09:11 10:20 WBC 0.1 L* (3.8-10.6) k/uL RBC 1.85 L (3.80-5.40) m/uL Hgb 5.4 L* (11.4-16.0) gm/dL Hct 14.5 L* (34.0-46.0) % MCV 78.1 L (80.0-100.0) fL MCHC 37.4 H (31.0-37.0) g/dL Plt Count 14 L* (150-450) k/uL Sodium (137-145) mmol/L Potassium (3.5-5.1) mmol/L Chloride (98-107) mmol/L BUN (7-17) mg/dL Glucose (74-99) mg/dL Plasma Lactic Acid Amrit (0.7-2.0) mmol/L Total Bilirubin (0.2-1.3) mg/dL Total Creatine Kinase (30-135) U/L Total Protein (6.3-8.2) g/dL Albumin (3.5-5.0) g/dL Crossmatch See Detail Thrombosis Risk Factor Assmnt - Choose All That Apply Any of the Below Risk Factors Present?: Yes Each Factor Represents 1 point: Abnormal pulmonary function (COPD), Age 41-60 years Other Risk Factors: Yes Each Risk Factor Represents 2 Points: Malignancy Other congenital or acquired thrombophilia - If yes, enter type in comment: No Thrombosis Risk Factor Assessment Total Risk Factor Score: 4 Thrombosis Risk Factor Assessment Level: Moderate Risk Assessment and Plan Assessment: 1. Pancytopenia likely chemotherapy-induced: With possible neutropenic fever. Infectious disease consulted. oncology consulted. They had started zarxio. 2. Anemia likely related to patient's lung cancer and chemotherapy. Patient receiving 2 units of blood in the ER for hemoglobin of 5.4 3. Dyspnea: Possibly related to her anemia. Chest x-ray showing evidence of atelectasis. Pulmonary service consulted. Patient received a dose of IV Solu- Medrol in the ER. Continue nebulizer treatments 4. Dehydration: Elevated BUN of 24, sodium 132. 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 Continue with IV fluid hydration 5. History of lung cancer diagnosed in December 2017: Patient reports completing chemotherapy. She still currently undergoing radiation treatment. 6. Oral candidiasis start nystatin swish and swallow 7. Hypokalemia patient receiving potassium supplement 8. History of COPD Time with Patient: Greater than 30 (Greater than 50% of the total time spent in counseling and coordination of care.I performed an examination of the patient and discussed their management with the physician Parking Inspector. I have reviewed the Physician Parking Inspector's notes and agree with the documented findings and plan of care)
--- NOTE | 2018-03-07 08:13 | CT ---
EXAMINATION TYPE: CT chest w con DATE OF EXAM: 03/07/2018 COMPARISON: PET/CT dated 01/14/2018 HISTORY: Trouble breathing CT DLP: 148.3 mGycm. Automated Exposure Control for Dose Reduction was Utilized. TECHNIQUE: CT scan of the thorax is performed following with IV Contrast, patient injected with 100 mL of Isovue 300. FINDINGS: LUNGS/MEDIASTINUM: The primary mass in the left perihilar and infrahilar region blends into the media stinum and is poorly measured although appears less conspicuous than on the prior PET/CT. However pos tobstructive subsegmental atelectasis on the left upper lobe remains unchanged. There is new right pe ripheral basilar subsegmental atelectasis and bilateral pleural parenchymal scarring. Findings are abdullahi perimposed upon moderate centrilobular emphysema. Encasement of the left main pulmonary artery is als o less conspicuous than on the prior exam. There is a new small left pleural effusion. Left hemithora x volume loss and leftward mediastinal shift are redemonstrated. The previously seen hypermetabolic precarinal lymph node is nonenlarged measuring 7 mm in short axis and appears smaller than on the prior exam. Conglomeration of left perihilar lymph nodes are ill-defi letty but also appears improved from the prior. OTHER: A solitary hepatic cyst and probable splenic cyst or lymphangioma are seen. The left adrenal g land is prominent in size but maintains an adreniform shape and may relate to adrenal gland hyperplas ia. Hypermetabolic activity seen on the prior PET/CT in the regions of the paraspinal musculature dem onstrate no definitive measurable mass. Mild multilevel degenerative disc disease is seen of the thor acic spine with large Schmorl's node of the lower thoracic vertebral body without anterior superior e ndplate height loss. IMPRESSION: 1. New small left pleural effusion in comparison to the prior PET/CT. 2. The known non-small cell lung cancer appears less conspicuous on the prior exam and remains diffic ult to accurately measure blending into the mediastinum. Visually there is response to treatment. Add itionally the hypermetabolic precarinal lymph node on the prior CT has decreased in size and is now n onenlarged by criteria. 3. The known hypermetabolic activity within the paraspinal musculature on the prior PET/CT demonstrat es no measurable mass on today's CT and again MR could be considered for further evaluation. 4. Moderate centrilobular emphysema.
[2018-03-07 08:34] LABS: HGB 6.5 gm/dL (11.4-16.0); WBC 0.2 k/uL (3.8-10.6)
[2018-03-07 08:35] LABS: HCT 18.7 % (34.0-46.0); Platelet Count 17 k/uL (150-450)
[2018-03-07] MEDS: SYMBICORT 160-4.5 MCG INHALER INHALATION SCH ×2 (08:44→20:47)
[2018-03-07] MEDS: IPRATROPIUM-ALBUTEROL 3 ML NEB INHALATION SCH ×4 (08:44→20:47)
--- NOTE | 2018-03-07 09:06 | P.CONS ---
History of Present Illness - Reason for Consult Consult date: 03/06/18 - History of Present Illness This is a 57 yr old WF, who presented with persistent and worsening dyspnea and cough started in ,she went to [facility] on 12/29/2017 with significant dyspnea,had a CXR which was suspicious for left lung mass,CT scan of chest on 12/29/2017 revealed 4.6cm left hilar mass,invading the mediastinum causing endobronchial obstruction and volume loss and left sided mediastinal shift. Diagnostic bronchoscopy on 12/29/2017 revealed a large obstructing lesion at distal left mainstem,biopsy was positive for non small cell carcinoma favoring squamous cell carcinoma. She had poor PFT done 11/30/2017. It was felt by Dr Anderson that her lung function did not permit surgery. PET scan on 01/14/2018 revealed very large hypermetabolic left hilar mass, invading mediastinum to pericardium,left hilar adenopathies,? lesion in left parotid gland (clinically,was not palpable),parasipnal musculatures uptake. the case was discussed at the lung cancer [facility], and it was ultimately felt that the patient did not have distant metastasis. He was started on definitive chemoradiation on 01/23/18 with SHOE SALESMAN-16 and cisplatin as the chemotherapy arm. She completed the second cycle of concurrent chemotherapy on 02/27/18. She completed radiation on 03/05/18 The patient stated that she had been feeling increasingly short of breath and weak, over the last 4-5 days. On 03/04/18, she had a fever of 103 at home but did not call the answering service. She has had progressive difficulty in swallowing due to treatment effect, and reported very poor oral intake since 11/07. She had called the office with her symptoms today. However she left for radiation for she got a call back. Post her treatment she was assessed by the radiation oncologist, and sent into the emergency room. She was noted to have marked pancytopenia with hemoglobin 5.4, WBC 0.1 and platelets 14. Lactic acid was elevated. The patient was also hypoxic with increased respiratory rate, and tachycardic. She was therefore admitted, started on broad spectrum antibiotics. She has received 2 units PRBCs. Consult was placed for further evaluation and recommendations Review of Systems Constitutional: Reports fever, Reports weakness, Reports weight loss Eyes: denies blurred vision, denies pain Ears: deny: decreased hearing, ear discharge, earache, tinnitus Ears, nose, mouth and throat: Denies headache, Denies sore throat Cardiovascular: Reports dyspnea on exertion, Reports rapid heart beat, Reports shortness of breath Respiratory: Reports dyspnea Gastrointestinal: Reports nausea, Reports vomiting Genitourinary: Denies dysuria, Denies hematuria Menstruation: Reports postmenopausal Musculoskeletal: Reports muscle weakness Integumentary: Denies pruritus, Denies rash Neurological: Reports weakness Psychiatric: Denies anxiety, Denies depression Endocrine: Reports fatigue, Reports weight change Hematologic/Lymphatic: Reports as per HPI Past Medical History Past Medical History: Cancer, COPD Additional Past Medical History / Comment(s): Squamous cell carcinoma of the lung, locally advanced at least with a large left hilar lesion, T3 lesion invading the mediastinum/pericardium, advanced COPD with an FEV1 of 40% of predicted History of Any Multi-Drug Resistant Organisms: None Reported Past Surgical History: Section Additional Past Surgical History / Comment(s): 01/20/18 PICC line insertion, bronchoscopy, colonoscopy, R lower jaw surgery for TMJ, x 2. Past Anesthesia/Blood Transfusion Reactions: Motion Sickness Past Psychological History: No Psychological Hx Reported Smoking Status: Former smoker Past Alcohol Use History: None Reported Past Drug Use History: None Reported - Past Family History Father History Unknown: Yes Mother Additional Family Medical History / Comment(s): Mother was obese. She about age 75yrs. Medications and Allergies Home Medications Medication Instructions Recorded Confirmed Type Aspirin 81 mg PO DAILY 01/20/18 03/06/18 History Ergocalciferol (Vitamin D2) 50,000 unit PO BLAKE 01/20/18 03/06/18 History [Vitamin D2] Famotidine 20 mg PO DAILY 01/20/18 03/06/18 History Naproxen 500 mg PO DAILY PRN 01/20/18 03/06/18 History Thiamine [Vitamin B-1] 50 mg PO DAILY 01/20/18 03/06/18 History Albuterol Inhaler [Ventolin Hfa 1 - 2 puff INHALATION RT-QID PRN 03/06/18 History Inhaler] Albuterol Nebulized [Ventolin 2.5 mg INHALATION RT-QID PRN 03/06/18 03/06/18 History Nebulized] Ferrous Sulfate [Feosol] 325 mg PO DAILY 03/06/18 03/06/18 History Fluticasone/Salmeterol [Advair 1 puff INHALATION RT-BID 03/06/18 03/06/18 History 500-50 Diskus] Tiotropium [place] [Spiriva] 1 cap INHALATION RT-DAILY 03/06/18 03/06/18 History Allergies Allergy/AdvReac Type Severity Reaction Status Date / Time ibuprofen Allergy BP DROPPED Verified 03/06/18 09:51 Physical Exam Vitals: Vital Signs Temp Pulse Resp BP Pulse Ox 03/06/18 19:35 104 H 03/06/18 19:29 100 03/06/18 18:53 30 H 03/06/18 18:28 97.8 F 99 30 H 102/64 03/06/18 17:00 103 H 16 92/50 100 03/06/18 16:30 97.2 F L 119 H 16 96/54 100 03/06/18 16:20 98.1 F 98 16 92/53 98 03/06/18 16:07 105 H 16 97/52 99 03/06/18 15:03 98.2 F 106 H 16 97/54 03/06/18 14:33 97.3 F L 107 H 20 101/55 03/06/18 14:23 97.2 F L 108 H 18 99/54 99 03/06/18 13:00 110 H 20 99/52 99 03/06/18 12:00 110 H 18 109/60 97 03/06/18 11:00 111 H 16 105/55 100 03/06/18 10:25 96 03/06/18 10:21 97 16 100/59 100 03/06/18 10:07 96 16 03/06/18 09:48 94 18 95/50 100 03/06/18 09:01 22 03/06/18 08:49 97.7 F 113 H 26 H 90/42 98 Intake and Output 03/06/18 03/06/18 03/06/18 06:59 14:59 22:59 Intake Total 0 620 Balance 0 620 Intake: Blood Product 0 620 Rc As-1 Unit 310 [id number] Rc As-1 Unit 0 310 [id number] Other: Weight 55.338 kg - Constitutional General appearance: no acute distress - EENT Eyes: EOMI, PERRLA ENT: hearing grossly normal, thrush - Neck Thyroid: bilateral: normal size - Respiratory Respiratory: left: diminished (UL) - Cardiovascular Rhythm: regular Heart sounds: normal: S1, S2 - Gastrointestinal General gastrointestinal: normal bowel sounds, soft - Integumentary Integumentary: normal - Neurologic Neurologic: CNII-XII intact - Musculoskeletal Musculoskeletal: generalized weakness - Psychiatric Psychiatric: A&O x's 3, appropriate affect Results CBC & Chem 7: 03/07/18 06:59 03/07/18 06:59 Labs: Abnormal Lab Results - Last 24 Hours (Table) 03/06/18 03/06/18 03/06/18 Range/Units 09:11 09:11 09:11 WBC (3.8-10.6) k/uL RBC (3.80-5.40) m/uL Hgb (11.4-16.0) gm/dL Hct (34.0-46.0) % MCV (80.0-100.0) fL MCHC (31.0-37.0) g/dL Plt Count (150-450) k/uL Sodium 132 L (137-145) mmol/L Potassium 3.1 L (3.5-5.1) mmol/L Chloride 94 L (98-107) mmol/L BUN 24 H (7-17) mg/dL Glucose 121 H (74-99) mg/dL Plasma Lactic Acid Amrit 2.6 H* (0.7-2.0) mmol/L Total Bilirubin 2.8 H (0.2-1.3) mg/dL Total Creatine Kinase 20 L (30-135) U/L Total Protein 6.1 L (6.3-8.2) g/dL Albumin 3.4 L (3.5-5.0) g/dL Urine Protein (Negative) Urine Glucose (UA) (Negative) Urine Ketones (Negative) Urine Bacteria (None) /hpf Hyaline Casts (0-2) /lpf Urine Mucus (None) /hpf Crossmatch 03/06/18 03/06/18 03/06/18 Range/Units 09:11 10:20 19:30 WBC 0.1 L* (3.8-10.6) k/uL RBC 1.85 L (3.80-5.40) m/uL Hgb 5.4 L* (11.4-16.0) gm/dL Hct 14.5 L* (34.0-46.0) % MCV 78.1 L (80.0-100.0) fL MCHC 37.4 H (31.0-37.0) g/dL Plt Count 14 L* (150-450) k/uL Sodium (137-145) mmol/L Potassium (3.5-5.1) mmol/L Chloride (98-107) mmol/L BUN (7-17) mg/dL Glucose (74-99) mg/dL Plasma Lactic Acid Amrit (0.7-2.0) mmol/L Total Bilirubin (0.2-1.3) mg/dL Total Creatine Kinase (30-135) U/L Total Protein (6.3-8.2) g/dL Albumin (3.5-5.0) g/dL Urine Protein 1+ H (Negative) Urine Glucose (UA) Trace H (Negative) Urine Ketones 2+ H (Negative) Urine Bacteria Occasional H (None) /hpf Hyaline Casts 5 H (0-2) /lpf Urine Mucus Rare H (None) /hpf Crossmatch See Detail Chest x-ray: report reviewed Assessment and Plan (1) Neutropenic sepsis Narrative/Plan: The patient had presented with severe neutropenia, fever at home, as well as other hemodynamic parameters suggestive of sepsis. She has thus been admitted. She is currently on broad-spectrum antibiotics with cefepime and vancomycin. Cultures have been ordered and are pending. Case was discussed in detail with the pulmonary medicine, who are on consult. A possible source could be chronic postobstructive disease in the left upper lobe. Filgrastim has been added. IV hydration Continue to follow closely with ongoing care Current Visit: Yes Status: Acute Code(s): A41.9 - SEPSIS, UNSPECIFIED ORGANISM; D70.9 - NEUTROPENIA, UNSPECIFIED SNOMED Code(s): 746564175 (2) Pancytopenia due to antineoplastic chemotherapy Narrative/Plan: The patient is one week out from her last chemotherapy. As noted, she has been started on filgrastim 4 the white blood cells. She has received 2 units PRBCs. Continue to monitor with additional transfusions as needed. Platelets are currently in a safe range, and greater than 10,000, in the absence of bleeding. Current Visit: Yes Status: Acute Code(s): D61.810 - ANTINEOPLASTIC CHEMOTHERAPY INDUCED PANCYTOPENIA; T45.1X5A - ADVERSE EFFECT OF ANTINEOPLASTIC AND IMMUNOSUP DRUGS, INIT SNOMED Code(s): 774391453986986 (3) Cancer of upper lobe of left lung Narrative/Plan: The case was discussed with primary medicine as noted, and images reviewed with them. Repeat computed tomography scan of the chest will be ordered. The patient has completed concurrent chemoradiation. Current Visit: Yes Status: Acute Code(s): C34.12 - MALIGNANT NEOPLASM OF UPPER LOBE, LEFT BRONCHUS OR LUNG SNOMED Code(s): 440251418 Plan: Diflucan has been added for oral thrush Defer to the admitting service and other consultants, including primary medicine for management of her other medical problems which at this time include a degree of COPD exacerbation
[2018-03-07] MEDS ORDERED: POTASSIUM CHLORIDE ER 20 MEQ TAB.ER PO STA (09:08)
[2018-03-07] MEDS ORDERED: POTASSIUM CHLORIDE 20 MEQ in WATER FOR INJECTION 1 100ML.BAG IVPB STA (09:10)
[2018-03-07] MEDS ORDERED: MAGNESIUM SULFATE-D5W PMX 1 GM in DEXTROSE/WATER 1 100ML.BAG IVPB ONE (09:15)
[2018-03-07] MEDS: SODIUM CHLORIDE 0.9% 1,000 ML IV SCH (09:21)
[2018-03-07 09:22] VITALS: BMI 20.9
[2018-03-07] MEDS: MAG HYDROX/AL HYDROX/SIMETH 30 ML, diphenhydrAMINE ELIXIR 75 MG, LIDOCAINE VISCOUS 30 ML PO SCH ×9 (09:47→21:27)
[2018-03-07] MEDS: FAMOTIDINE 20 MG TAB PO SCH (09:47)
[2018-03-07] MEDS: FLUCONAZOLE 100 MG TAB PO SCH (09:47)
[2018-03-07] MEDS: FILGRASTIM-SNDZ 300 MCG/0.5 ML SYRINGE SQ SCH (09:48)
[2018-03-07 09:50] LABS: Anisocytosis (M) Present
[2018-03-07] MEDS: NYSTATIN 100,000 UNIT/ML SUSP 500,000 UNIT/5 ML CUP PO SCH (11:41)
[2018-03-07] MEDS ORDERED: THIAMINE 50 MG PO SCH (12:00)
[2018-03-07] MEDS: FERROUS SULFATE 325 MG TAB PO SCH (12:41)
[2018-03-07] MEDS: THIAMINE 100 MG TAB PO SCH (12:41)
--- NOTE | 2018-03-07 12:46 | P.PN ---
Subjective Progress Note Date: 03/07/18 This is a 57-year-old female, patient of Dr. Mota. She has a known past medical history of lung cancer that was just diagnosed December 2016. Patient has been on chemo and radiation treatment beginning in January. She finished chemotherapy about a week ago. She had radiation treatment scheduled for today. When she went into her appointment she was told that she wasn't looking well and to go to the emergency room. Patient reports feeling short of breath having occasional cough. On Tuesday she did have a fever of 103. But then the fever broke and on Tuesday her temp was around 99. On admission she's been afebrile. Her CBC shows a hemoglobin of 5.4 white count 0.1 platelets 14. She' s receiving 2 units of blood. And oncology has ordered zarxio for her neutropenia. Chest x-ray left upper lobe atelectasis. Urinalysis and blood culture are pending. Patient was started on cefepime and vancomycin in the emergency room. Oncology, infectious disease and pulmonary services have been consulted. Patient does admit to having some sinus congestion that started today. Denies any burning with urination denies any diarrhea. She does admit to having a couple episodes of vomiting one on Tuesday and then again on Tuesday. Denies any sick contacts. Potassium is low and she is receiving supplement in the ER. 03/07/2018 patient is complaining of discomfort with swallowing where she has her known esophageal radiation burn. Patient sitting up in bed. Reports some improvement in shortness of breath. Denies any chest pain. Denies any nausea or vomiting. Reports last bowel movement was a couple days ago. Denies any burning with urination. Reports improvement in her cough. She received 2 units of blood yesterday. Hemoglobin is up to 6.5. White count 0.2 platelets 17 Objective - Vital Signs Vital signs: Vital Signs Temp 97.6 F 03/07/18 07:18 Pulse 86 03/07/18 09:00 Resp 18 03/07/18 07:18 BP 106/63 03/07/18 07:18 Pulse Ox 99 03/07/18 07:18 Intake & Output 03/06/18 03/07/18 03/07/18 18:59 06:59 18:59 Intake Total 620 2140 Output Total 600 Balance 620 1540 Weight 55.338 kg 55.338 kg 55.338 kg Intake: Intake, IV Titration 1550 Amount Sodium Chloride 0.9% 1, 300 000 ml @ 100 mls/hr IV . Q10H [facility] Rx#:[id number] Sodium Chloride 0.9% 1, 1000 000 ml @ 999 mls/hr IV . Q1H1M ONE Rx#:[id number] Vancomycin 1,000 mg In 250 Sodium Chloride 0.9% 250 ml @ 125 mls/hr IVPB Q12H [facility] Rx#:[id number] Oral 590 Blood Product 620 Rc As-1 Unit 310 [id number] Rc As-1 Unit 310 [id number] Output: Urine 600 Other: Voiding Method Toilet # Voids 2 - Exam Mouth oral thrush Head normocephalic Neck supple Lungs clear to auscultation bilaterally no wheezing or crackles Heart regular rate and rhythm S1-S2, no rub or gallop Abdomen is soft nontender nondistended positive bowel sounds no hepatosplenomegaly Extremities no edema Neuro alert and orientated to 3 - Labs CBC & Chem 7: 03/07/18 06:59 03/07/18 06:59 Labs: Abnormal Lab Results - Last 24 Hours (Table) 03/06/18 03/06/18 03/06/18 Range/Units 09:11 10:20 19:30 WBC (3.8-10.6) k/uL RBC (3.80-5.40) m/uL Hgb (11.4-16.0) gm/dL Hct (34.0-46.0) % Plt Count 14 L* (150-450) k/uL Potassium (3.5-5.1) mmol/L Carbon Dioxide (22-30) mmol/L BUN (7-17) mg/dL Creatinine (0.52-1.04) mg/dL Glucose (74-99) mg/dL Calcium (8.4-10.2) mg/dL Magnesium (1.6-2.3) mg/dL Total Bilirubin (0.2-1.3) mg/dL Total Protein (6.3-8.2) g/dL Albumin (3.5-5.0) g/dL Urine Protein 1+ H (Negative) Urine Glucose (UA) Trace H (Negative) Urine Ketones 2+ H (Negative) Urine Bacteria Occasional H (None) /hpf Hyaline Casts 5 H (0-2) /lpf Urine Mucus Rare H (None) /hpf Crossmatch See Detail 03/07/18 03/07/18 Range/Units 06:59 06:59 WBC 0.2 L* (3.8-10.6) k/uL RBC 2.28 L (3.80-5.40) m/uL Hgb 6.5 L* (11.4-16.0) gm/dL Hct 18.7 L* (34.0-46.0) % Plt Count 17 L* (150-450) k/uL Potassium 3.4 L (3.5-5.1) mmol/L Carbon Dioxide 21 L (22-30) mmol/L BUN 23 H (7-17) mg/dL Creatinine 0.51 L (0.52-1.04) mg/dL Glucose 102 H (74-99) mg/dL Calcium 8.2 L (8.4-10.2) mg/dL Magnesium 1.5 L (1.6-2.3) mg/dL Total Bilirubin 1.9 H (0.2-1.3) mg/dL Total Protein 5.2 L (6.3-8.2) g/dL Albumin 2.8 L (3.5-5.0) g/dL Urine Protein (Negative) Urine Glucose (UA) (Negative) Urine Ketones (Negative) Urine Bacteria (None) /hpf Hyaline Casts (0-2) /lpf Urine Mucus (None) /hpf Crossmatch Microbiology - Last 24 Hours (Table) 03/06/18 19:30 Urine Culture - Preliminary Urine,Clean Catch Assessment and Plan Assessment: 1. Neutropenic sepsis: Patient currently on cefepime and vancomycin. Blood culture and urine culture are pending. Await further recommendations per infectious disease 2. Pancytopenia likely chemotherapy-induced: Oncology following. Patient received 2 units of blood yesterday. Hemoglobin is up to 6.5. Patient is scheduled to receive 1 more unit of blood. Also received filgrastim white count has gone up from 0.1-0.2. Platelets are 17. 3. Oral candidiasis: Patient not able to tolerate nystatin swish and swallow. Continue with the Diflucan 100 mg daily 3. Dyspnea: Possibly related to her anemia. Chest x-ray showing evidence of atelectasis. Pulmonary service consulted. Patient received a dose of IV Solu- Medrol in the ER. Continue nebulizer treatments 4. 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 Continue with IV fluid hydration normal saline at 50 mL an hour 5. History of non-small cell lung cancer diagnosed in December 2017: Patient reports completing chemotherapy. She still currently undergoing radiation treatment. Computed tomography scan of the chest report reviewed 6. Hypokalemia and hypomagnesemia: Patient receiving potassium and magnesium supplement 7. History of COPD CODE STATUS addressed with patient she is requesting to be a no code I performed an examination of the patient and discussed their management with the physician Hr Coordinator. I have reviewed the Physician Hr Coordinator's notes and agree with the documented findings and plan of care
--- NOTE | 2018-03-07 17:20 | P.PN ---
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 Patient was started on definitive chemoradiation with [employer] 16 and cisplatin as a chemotherapy arm, she completed her radiation on 03/05/2018. He presented with increasing shortness of breath and weakness over the course of 4- 5 days, fevers up to 103F at home, difficulty in swallowing, and decreased oral intake. Patient was found to have marked pancytopenia with hemoglobin of 5.4, WBC of 0.1, and platelets of 14. Patient was hypoxemic, tachypneic and tachycardic. She was started on broad-spectrum abiotics, he was transfused with 2 units of PRBCs yesterday on 03/06/2018, however on today's blood work patient's hemoglobin only came up to 6.5, hence patient is receiving another unit of packed red blood cells. Patient was started on filgrastim for severe neutropenia. Blood and urine cultures remain negative so far. Currently on 3 L per nasal cannula with O2 sat 98%. Less tachycardic today, with a heart rate between 98-101 BPM. Afebrile. Her respirations are even and nonlabored. No dynamically stable. Louise today we started the patient on oral Diflucan, and Yogesh solution for radiation esophagitis, patient was unable to tolerate the Yogesh solution. Lung sounds are diminished over left upper lobe, clear on the right. Follow-up CT chest was reviewed, and showed improvement in the appearance of the known non-small cell lung cancer, which appears less conspicuous on the prior exam, but visually there is response to treatment. Additionally the hypermetabolic precarinal lymph nodes seen on the prior CT has decreased in size and is now nonenlarged by criteria. There is a new small left pleural effusion. The known hypermetabolic activity within the paraspinal musculature on the prior PET/CT demonstrates no measurable mass on today's CT and again MR could be considered for further evaluation. There is moderate central lobar emphysema seen on today's CT of the chest. Patient is on empiric antibiotic coverage with cefepime and vancomycin. She has been adequately fluid resuscitated, with 2 L of IV 0.9 normal saline and her maintenance IV fluids are infusing at a rate of 50 ML per hour. She is on nebulized bronchodilators, and Symbicort. Overall feeling better today. Objective - Vital Signs Vital signs: Vital Signs Temp 97.4 F L 03/07/18 14:45 Pulse 98 03/07/18 16:46 Resp 16 03/07/18 16:46 BP 113/62 03/07/18 14:45 Pulse Ox 98 03/07/18 16:39 Intake & Output 03/06/18 03/07/18 03/07/18 18:59 06:59 18:59 Intake Total 620 2140 310 Output Total 600 Balance 620 1540 310 Weight 55.338 kg 55.338 kg 55.338 kg Intake: Intake, IV Titration 1550 Amount Sodium Chloride 0.9% 1, 300 000 ml @ 100 mls/hr IV . Q10H [facility] Rx#:[id number] Sodium Chloride 0.9% 1, 1000 000 ml @ 999 mls/hr IV . Q1H1M ONE Rx#:[id number] Vancomycin 1,000 mg In 250 Sodium Chloride 0.9% 250 ml @ 125 mls/hr IVPB Q12H [facility] Rx#:[id number] Oral 590 Blood Product 620 310 Rc As-1 Unit 310 [id number] Rc As-1 Unit 310 [id number] Rc Pheresis Irrad As 3 310 Unit [id number] Output: Urine 600 Other: Voiding Method Toilet Toilet # Voids 2 1 - Exam GENERAL EXAM: Alert, pleasant, ill-looking 57-year-old pale white female comfortable in no apparent distress. HEAD: Normocephalic/atraumatic. EYES: Normal reaction of pupils, equal size. Conjunctiva pink, sclera white. NOSE: Clear with pink turbinates. THROAT: No erythema or exudates. NECK: No masses, no JVD, no thyroid enlargement, no adenopathy. CHEST: No chest wall deformity. Symmetrical expansion. LUNGS: Equal air entry diminished lung sounds over left upper lobe, clear on the right, no wheezes, no rhonchi noted CVS: Regular rate and rhythm, normal S1 and S2, no gallops, no murmurs, no rubs ABDOMEN: Soft, nontender. No hepatosplenomegaly, normal bowel sounds, no guarding or rigidity. EXTREMITIES: No clubbing, no edema, no cyanosis, 2+ pulses and upper and lower extremities. MUSCULOSKELETAL: Muscle strength and tone normal. SPINE: No scoliosis or deformity SKIN: No rashes CENTRAL NERVOUS SYSTEM: Alert and oriented -3. No focal deficits, tone is normal in all 4 extremities. PSYCHIATRIC: Alert and oriented -3. Appropriate affect. Intact judgment and insight. - Labs CBC & Chem 7: 03/07/18 06:59 03/07/18 06:59 Labs: Abnormal Lab Results - Last 24 Hours (Table) 03/06/18 03/06/18 03/07/18 Range/Units 10:20 19:30 06:59 WBC 0.2 L* (3.8-10.6) k/uL RBC 2.28 L (3.80-5.40) m/uL Hgb 6.5 L* (11.4-16.0) gm/dL Hct 18.7 L* (34.0-46.0) % Plt Count 17 L* (150-450) k/uL Potassium (3.5-5.1) mmol/L Carbon Dioxide (22-30) mmol/L BUN (7-17) mg/dL Creatinine (0.52-1.04) mg/dL Glucose (74-99) mg/dL Calcium (8.4-10.2) mg/dL Magnesium (1.6-2.3) mg/dL Total Bilirubin (0.2-1.3) mg/dL Total Protein (6.3-8.2) g/dL Albumin (3.5-5.0) g/dL Urine Protein 1+ H (Negative) Urine Glucose (UA) Trace H (Negative) Urine Ketones 2+ H (Negative) Urine Bacteria Occasional H (None) /hpf Hyaline Casts 5 H (0-2) /lpf Urine Mucus Rare H (None) /hpf Crossmatch See Detail 03/07/18 Range/Units 06:59 WBC (3.8-10.6) k/uL RBC (3.80-5.40) m/uL Hgb (11.4-16.0) gm/dL Hct (34.0-46.0) % Plt Count (150-450) k/uL Potassium 3.4 L (3.5-5.1) mmol/L Carbon Dioxide 21 L (22-30) mmol/L BUN 23 H (7-17) mg/dL Creatinine 0.51 L (0.52-1.04) mg/dL Glucose 102 H (74-99) mg/dL Calcium 8.2 L (8.4-10.2) mg/dL Magnesium 1.5 L (1.6-2.3) mg/dL Total Bilirubin 1.9 H (0.2-1.3) mg/dL Total Protein 5.2 L (6.3-8.2) g/dL Albumin 2.8 L (3.5-5.0) g/dL Urine Protein (Negative) Urine Glucose (UA) (Negative) Urine Ketones (Negative) Urine Bacteria (None) /hpf Hyaline Casts (0-2) /lpf Urine Mucus (None) /hpf Crossmatch Microbiology - Last 24 Hours (Table) 03/06/18 09:11 Blood Culture - Preliminary Blood No Growth after 24 hours 03/06/18 19:30 Urine Culture - Preliminary Urine,Clean Catch Assessment and Plan Plan: Assessment: #1. Acute neutropenic sepsis, the source is currently under investigation. Patient presented with weakness, fevers, chills. On admission to [facility] was 0.1, hemoglobin of 5.4, and platelets 14. Patient is currently undergoing chemoradiation for non-small cell lung carcinoma, locally advanced #2. Lactic acidosis secondary to the above, patient has been fluid resuscitated and subsequent lactic acid came down to 1.4 #3. Pancytopenia, likely chemotherapy induced. Patient has been transfused with 3 units of PRBCs, for hemoglobin of 5.4 the patient was initiated on filgrastim #4. Dysphagia, secondary to adhesions esophagitis #5. Dyspnea, possibly related to profound anemia, and a large left hilar mass invading mediastinum and pericardium #6. Oral candidiasis #7. Prerenal azotemia, secondary to dehydration and decreased oral intake #8. Mild hyponatremia and hypokalemia, probably related to decreased oral intake #9. History of COPD Plan: Continue current antibiotic coverage, with cefepime and vancomycin, continue Diflucan, she was unable to tolerate the cold solution. Continue nebulized treatments, await the results of the final cultures. Patient has been afebrile since admission. Her lactic acidosis has resolved, he is receiving her third unit of blood, and continue with Filgrastim. Continue to follow I performed a history & physical examination of the patient and discussed their management with my nurse practitioner, Rupinder Rudd. I reviewed the nurse practitioner's note and agree with the documented findings and plan of care. Lung sounds are diminished over left upper lobe. The findings and the impression was discussed with the patient. I attest to the documentation by the nurse practitioner. Time with Patient: Less than 30
--- NOTE | 2018-03-07 18:25 | P.PN ---
Subjective Progress Note Date: 03/07/18 Principal diagnosis: Pancytopenia Reena seen in follow-up today. She is weak and fatigued. Mouth is sore. Objective - Vital Signs Vital signs: Vital Signs Temp 97.4 F L 03/07/18 14:45 Pulse 98 03/07/18 16:46 Resp 16 03/07/18 16:46 BP 113/62 03/07/18 14:45 Pulse Ox 98 03/07/18 16:39 Intake & Output 03/06/18 03/07/18 03/07/18 18:59 06:59 18:59 Intake Total 620 2140 310 Output Total 600 Balance 620 1540 310 Weight 55.338 kg 55.338 kg 55.338 kg Intake: Intake, IV Titration 1550 Amount Sodium Chloride 0.9% 1, 300 000 ml @ 100 mls/hr IV . Q10H [facility] Rx#:[id number] Sodium Chloride 0.9% 1, 1000 000 ml @ 999 mls/hr IV . Q1H1M ONE Rx#:[id number] Vancomycin 1,000 mg In 250 Sodium Chloride 0.9% 250 ml @ 125 mls/hr IVPB Q12H [facility] Rx#:[id number] Oral 590 Blood Product 620 310 Rc As-1 Unit 310 [id number] Rc As-1 Unit 310 [id number] Rc Pheresis Irrad As 3 310 Unit [id number] Output: Urine 600 Other: Voiding Method Toilet Toilet # Voids 2 1 - Constitutional General appearance: Present: cooperative, no acute distress - EENT Eyes: Present: poor dentition ENT: Present: pharyngeal erythema, thrush, tonsillar exudates - Neck Neck: Present: normal ROM - Respiratory Respiratory: bilateral: diminished (No increased effort) - Cardiovascular Heart rate: 110 - Gastrointestinal General gastrointestinal: Present: soft, tenderness - Integumentary Integumentary: Present: pale - Neurologic Neurologic: Present: CNII-XII intact - Musculoskeletal Musculoskeletal: Present: generalized weakness - Psychiatric Psychiatric: Present: A&O x's 3, appropriate affect, intact judgment & insight - Labs CBC & Chem 7: 03/07/18 06:59 03/07/18 06:59 Labs: Abnormal Lab Results - Last 24 Hours (Table) 03/06/18 03/06/18 03/07/18 Range/Units 10:20 19:30 06:59 WBC 0.2 L* (3.8-10.6) k/uL RBC 2.28 L (3.80-5.40) m/uL Hgb 6.5 L* (11.4-16.0) gm/dL Hct 18.7 L* (34.0-46.0) % Plt Count 17 L* (150-450) k/uL Potassium (3.5-5.1) mmol/L Carbon Dioxide (22-30) mmol/L BUN (7-17) mg/dL Creatinine (0.52-1.04) mg/dL Glucose (74-99) mg/dL Calcium (8.4-10.2) mg/dL Magnesium (1.6-2.3) mg/dL Total Bilirubin (0.2-1.3) mg/dL Total Protein (6.3-8.2) g/dL Albumin (3.5-5.0) g/dL Urine Protein 1+ H (Negative) Urine Glucose (UA) Trace H (Negative) Urine Ketones 2+ H (Negative) Urine Bacteria Occasional H (None) /hpf Hyaline Casts 5 H (0-2) /lpf Urine Mucus Rare H (None) /hpf Crossmatch See Detail 03/07/18 Range/Units 06:59 WBC (3.8-10.6) k/uL RBC (3.80-5.40) m/uL Hgb (11.4-16.0) gm/dL Hct (34.0-46.0) % Plt Count (150-450) k/uL Potassium 3.4 L (3.5-5.1) mmol/L Carbon Dioxide 21 L (22-30) mmol/L BUN 23 H (7-17) mg/dL Creatinine 0.51 L (0.52-1.04) mg/dL Glucose 102 H (74-99) mg/dL Calcium 8.2 L (8.4-10.2) mg/dL Magnesium 1.5 L (1.6-2.3) mg/dL Total Bilirubin 1.9 H (0.2-1.3) mg/dL Total Protein 5.2 L (6.3-8.2) g/dL Albumin 2.8 L (3.5-5.0) g/dL Urine Protein (Negative) Urine Glucose (UA) (Negative) Urine Ketones (Negative) Urine Bacteria (None) /hpf Hyaline Casts (0-2) /lpf Urine Mucus (None) /hpf Crossmatch Microbiology - Last 24 Hours (Table) 03/06/18 09:11 Blood Culture - Preliminary Blood No Growth after 24 hours 03/06/18 19:30 Urine Culture - Preliminary Urine,Clean Catch Assessment and Plan (1) Cancer of upper lobe of left lung Narrative/Plan: 1. Status Post Chemotherapy on 02/27 2. On Hold till count recovery and acute situation resolved Current Visit: Yes Status: Acute Code(s): C34.12 - MALIGNANT NEOPLASM OF UPPER LOBE, LEFT BRONCHUS OR LUNG SNOMED Code(s): 590507170 (2) Neutropenic sepsis Narrative/Plan: 1. Camp Culture 2. Oral Thrush and exudates 3. Zarxio 4. IV abx and antifungals Current Visit: Yes Status: Acute Code(s): A41.9 - SEPSIS, UNSPECIFIED ORGANISM; D70.9 - NEUTROPENIA, UNSPECIFIED SNOMED Code(s): 005270650 (3) Pancytopenia due to antineoplastic chemotherapy Narrative/Plan: 1. Monitor counts closely and daily 2. Transfuse hemoglobin less than 7 and plat less than 15 in presence of neutropenia sepsis induced by chemo (if bleeding try to transfuse to keep closer to 50) Current Visit: Yes Status: Acute Code(s): D61.810 - ANTINEOPLASTIC CHEMOTHERAPY INDUCED PANCYTOPENIA; T45.1X5A - ADVERSE EFFECT OF ANTINEOPLASTIC AND IMMUNOSUP DRUGS, INIT SNOMED Code(s): 627652895707185
--- NOTE | 2018-03-07 22:09 | P.CONS ---
History of Present Illness - Reason for Consult Consult date: 03/07/18 - Chief Complaint Fever - History of Present Illness 57-year-old female who has a known history of non-small cell lung carcinoma diagnosed in December 2017. She was found evidence of a large left hilar mass that invaded the mediastinum. Since that time she's been followed by oncology and receiving chemotherapy with [id number], cis-confederated salish and radiation therapy. She's time difficulties with swallowing related to her radiation and chemotherapy. She feels weak and ill. She's been having increasing difficulties at home partly because she is having such great difficulties eating. She is tolerating some liquids well. However cannot tolerate protein supplements and cannot tolerate cool solution to help her with her difficulties with swallowing. She relates that protein supplements in the cool solution cause her to have intense emesis and abdominal pain. She is referred with the dietitian to try to come up with further plans to help her improve her protein intake. The day of admission showed a temperature 103 and was feeling very poorly and constantly presented to Hospital from the oncologist office. Also find evidence of significant anemia and has received several units of packed red cells up till now. She had no bleeding and has significant chemotherapy- induced thrombocytopenia also. With her fever and leukopenia the infectious diseases consultation was requested. This evening she is feeling just slightly better. Still having great difficulties ingesting food. But fever has improved with hydration and antibiotic therapy. Other than difficulty swallowing she relates no other new acute changes. Her shortness of breath actually has improved from December she has chronic cough that is not worse and she has no hemoptysis or significant sputum production. She is oxygen dependent and is now at 3 L with her acute illness. Review of Systems 57-year-old woman who has distinct alopecia, evidence of weight loss and acute illness HEENT:Denies headache or acute visual change. Denies sinus or mouth discomforts. Denies neck stiffness or pain. Has ongoing oral cavity discomfort and difficulty swallowing Lungs: Shortness of breath is worse than baseline but improved since admission, she has minimal cough without stiffness. Production and no hemoptysis Cardiovascular: Denies significant shortness of breath, chest pain, chest wall pain, orthopnea, dyspnea on exertion, syncope Gastrointestinal: Difficulty swallowing and she's not doing well for any supplements because her to have nausea and emesis. She's not having significant diarrhea. No hematemesis melena or hematochezia. Musculoskeletal: denies significant myalgias or arthralgias. No new joint swelling. Denies new back pain. Skin: Denies new rash or lesions. No new ulcers or wounds are related.. Neuro: Denies headache or visual change. Denies any new onset weakness or difficulty with ambulation. Denies falls or seizures. Psychiatric:Denies anxiety or depression. Endocrine: Profound fatigue and continues to have weight loss due to her inability to eat Past Medical History Past Medical History: Cancer, COPD Additional Past Medical History / Comment(s): Squamous cell carcinoma of the lung, locally advanced at least with a large left hilar lesion, T3 lesion invading the mediastinum/pericardium, advanced COPD with an FEV1 of 40% of predicted History of Any Multi-Drug Resistant Organisms: None Reported Past Surgical History: Section Additional Past Surgical History / Comment(s): 01/20/18 PICC line insertion, bronchoscopy, colonoscopy, R lower jaw surgery for TMJ, x 2. Past Anesthesia/Blood Transfusion Reactions: Motion Sickness Past Psychological History: No Psychological Hx Reported Additional Psychological History / Comment(s): Single and lives independently. 2 cats living at home, she has a niece is caring for the animals while she is in hospital. She relates no children. Stop smoking with the diagnosis of her lung cancer. No significant alcohol use. No experience or international travel. Not currently working Smoking Status: Former smoker Past Alcohol Use History: None Reported Past Drug Use History: None Reported - Past Family History Father History Unknown: Yes Mother Additional Family Medical History / Comment(s): Mother was obese. She about age 75yrs. Medications and Allergies Home Medications and Allergies Comment(s): Current Medications Acetaminophen (Tylenol Tab) 650 mg PO Q6HR PRN PRN Reason: Mild Pain or Fever > 100.5 Hydrocodone Bitart/Acetaminophen (Ona 5-325) 1 each PO Q6HR PRN PRN Reason: Moderate Pain Last Admin: 03/07/18 16:10 Dose: 1 each Albuterol/Ipratropium (Duoneb 0.5 Mg-3 Mg/3 Ml Soln) 3 ml INHALATION RT-QID RON Last Admin: 03/07/18 20:47 Dose: 3 ml Albuterol/Ipratropium (Duoneb 0.5 Mg-3 Mg/3 Ml Soln) 3 ml INHALATION RT-Q2H PRN PRN Reason: Shortness Of Breath Or Wheezing Budesonide/Formoterol Fumarate (Symbicort 160-4.5 Mcg Inhaler) 2 puff INHALATION RT-BID [facility] Last Admin: 03/07/18 20:47 Dose: 2 puff Al Hydroxide/Mg Hydroxide 30 ml/ Diphenhydramine HCl 75 mg/Lidocaine HCl 30 ml 0 ml PO TID [facility] Last Admin: 03/07/18 21:27 Dose: Not Given Ergocalciferol (Vitamin D2) 50,000 unit PO [facility] Famotidine (Pepcid) 20 mg PO DAILY [facility] Last Admin: 03/07/18 09:47 Dose: 20 mg Ferrous Sulfate (Feosol) 325 mg PO 1200 [facility] Last Admin: 03/07/18 12:41 Dose: 325 mg Filgrastim (Zarxio) 300 mcg SQ DAILY [facility] Last Admin: 03/07/18 09:48 Dose: 300 mcg Fluconazole (Diflucan) 100 mg PO DAILY [facility] Last Admin: 03/07/18 09:47 Dose: 100 mg Cefepime HCl 2 gm/ Sodium (Chloride) 50 mls @ 100 mls/hr IVPB Q8H [facility] Last Admin: 03/07/18 18:21 Dose: 100 mls/hr Vancomycin HCl 1,000 mg/ (Sodium Chloride) 250 mls @ 125 mls/hr IVPB Q8HR [facility] Last Admin: 03/07/18 16:08 Dose: 125 mls/hr Sodium Chloride (Saline 0.9%) 1,000 mls @ 50 mls/hr IV .Q20H [facility] Last Admin: 03/07/18 09:21 Dose: 50 mls/hr Miscellaneous Information (Rx Info: Iv Contrast Was Given) 1 each MISCELLANE DAILY PRN PRN Reason: Per Protocol Stop: 03/08/18 17:51 Naloxone HCl (Narcan) 0.2 mg IV Q2M PRN PRN Reason: Opioid Reversal Ondansetron HCl (Zofran) 4 mg IVP Q8HR PRN PRN Reason: Nausea And Vomiting Last Admin: 03/06/18 20:56 Dose: 4 mg Thiamine HCl (Vitamin B-1) 50 mg PO 1200 [facility] Last Admin: 03/07/18 12:41 Dose: 50 mg Home Medications Medication Instructions Recorded Confirmed Type Aspirin 81 mg PO DAILY 01/20/18 03/06/18 History Ergocalciferol (Vitamin D2) 50,000 unit PO BLAKE 01/20/18 03/06/18 History [Vitamin D2] Famotidine 20 mg PO DAILY 01/20/18 03/06/18 History Naproxen 500 mg PO DAILY PRN 01/20/18 03/06/18 History Thiamine [Vitamin B-1] 50 mg PO DAILY 01/20/18 03/06/18 History Albuterol Inhaler [Ventolin Hfa 1 - 2 puff INHALATION RT-QID PRN 03/06/18 History Inhaler] Albuterol Nebulized [Ventolin 2.5 mg INHALATION RT-QID PRN 03/06/18 03/06/18 History Nebulized] Ferrous Sulfate [Feosol] 325 mg PO DAILY 03/06/18 03/06/18 History Fluticasone/Salmeterol [Advair 1 puff INHALATION RT-BID 03/06/18 03/06/18 History 500-50 Diskus] Tiotropium [place] [Spiriva] 1 cap INHALATION RT-DAILY 03/06/18 03/06/18 History Allergies Allergy/AdvReac Type Severity Reaction Status Date / Time ibuprofen Allergy BP DROPPED Verified 03/06/18 09:51 Physical Exam Vitals: Vital Signs Temp Pulse Pulse Resp BP BP BP 03/07/18 20:57 92 16 03/07/18 20:47 94 16 03/07/18 20:45 97.5 F L 93 20 120/64 03/07/18 16:46 98 16 03/07/18 16:39 95 16 03/07/18 14:45 97.4 F L 95 18 113/62 03/07/18 13:12 97.4 F L 101 H 22 116/69 03/07/18 13:08 100 03/07/18 12:56 92 03/07/18 11:27 97.4 F L 96 20 95/59 03/07/18 11:06 20 03/07/18 10:57 97.4 F L 89 20 94/51 03/07/18 10:47 97.5 F L 98 20 106/58 03/07/18 09:00 86 03/07/18 08:45 84 03/07/18 07:18 97.6 F 83 18 106/63 03/06/18 23:00 97.6 F 92 20 94/59 Pulse Ox 03/07/18 20:57 03/07/18 20:47 03/07/18 20:45 96 03/07/18 16:46 03/07/18 16:39 98 03/07/18 14:45 98 03/07/18 13:12 03/07/18 13:08 03/07/18 12:56 03/07/18 11:27 03/07/18 11:06 03/07/18 10:57 03/07/18 10:47 03/07/18 09:00 03/07/18 08:45 03/07/18 07:18 99 03/06/18 23:00 100 Intake and Output 03/07/18 03/07/18 03/07/18 06:59 14:59 22:59 Intake Total 590 310 Balance 590 310 Intake: Oral 590 Blood Product 310 Rc Pheresis Irrad As 3 310 Unit [id number] Other: Voiding Method Toilet Toilet # Voids 2 1 Weight 55.338 kg 57-year-old woman who looks older than her stated age, she has evidence of alopecia from her chemotherapy and appears to be thin and chronically ill HEENT: Anicteric conjunctiva are pink no eye lesions are seen. No bleeding from the nasal cavity. No bleeding from the mouth. She complains of difficulty with swallowing and thrush at the oral cavity is not coated but may have some mild mucositis in the posterior aspect of the throat no ulcerations are seen Neck: The neck is supple without significant lymphadenopathy or thyromegaly. Lungs: Symmetrical air entry is noted there is expiratory wheezes that are scattered, no stiff M bronchial sounds are noted. Heart: Regular rate and rhythm with an audible S1-S2, no S3 no S4. There is no significant murmur click or rub, PMI was nondisplaced. Abdomen: Positive bowel sounds soft and nontender without palpable masses or organomegaly. There was no guarding or rebound. Extremities: The upper extremities have excellent pulses they are symmetric, no significant petechiae or telangiectasia. No splinter hemorrhages were noted. The lower extremities are free from significant edema. The peripheral pulses were 2+ and symmetric. Neuro: Awake alert oriented to person place and time. There are no acute new gross focal sensory motor deficits. Results CBC & Chem 7: 03/07/18 06:59 03/07/18 06:59 Labs: Abnormal Lab Results - Last 24 Hours (Table) 03/06/18 03/07/18 03/07/18 Range/Units 10:20 06:59 06:59 WBC 0.2 L* (3.8-10.6) k/uL RBC 2.28 L (3.80-5.40) m/uL Hgb 6.5 L* (11.4-16.0) gm/dL Hct 18.7 L* (34.0-46.0) % Plt Count 17 L* (150-450) k/uL Potassium 3.4 L (3.5-5.1) mmol/L Carbon Dioxide 21 L (22-30) mmol/L BUN 23 H (7-17) mg/dL Creatinine 0.51 L (0.52-1.04) mg/dL Glucose 102 H (74-99) mg/dL Calcium 8.2 L (8.4-10.2) mg/dL Magnesium 1.5 L (1.6-2.3) mg/dL Total Bilirubin 1.9 H (0.2-1.3) mg/dL Total Protein 5.2 L (6.3-8.2) g/dL Albumin 2.8 L (3.5-5.0) g/dL Crossmatch See Detail Microbiology - Last 24 Hours (Table) 03/06/18 19:30 Urine Culture - Final Urine,Clean Catch 03/06/18 09:11 Blood Culture - Preliminary Blood No Growth after 24 hours Laboratory Results WBC 0.2 k/uL (3.8-10.6) L* 03/07/18 06:59 RBC 2.28 m/uL (3.80-5.40) L 03/07/18 06:59 Hgb 6.5 gm/dL (11.4-16.0) L* 03/07/18 06:59 Hct 18.7 % (34.0-46.0) L* 03/07/18 06:59 MCV 82.0 fL (80.0-100.0) 03/07/18 06:59 MCH 28.3 pg (25.0-35.0) 03/07/18 06:59 MCHC 34.5 g/dL (31.0-37.0) 03/07/18 06:59 RDW 13.4 % (11.5-15.5) 03/07/18 06:59 Plt Count 17 k/uL (150-450) L* 03/07/18 06:59 Differential Comment 03/07/18 06:59 Manual Slide Review Performed 03/07/18 06:59 Hyperchromasia Moderate 03/06/18 09:11 Poikilocytosis Slight 03/07/18 06:59 Anisocytosis (manual) Present 03/07/18 06:59 PT 10.7 sec (9.0-12.0) 03/06/18 09:11 INR 1.1 (<1.2) 03/06/18 09:11 APTT 22.2 sec (22.0-30.0) 03/06/18 09:11 Sodium 137 mmol/L (137-145) 03/07/18 06:59 Potassium 3.4 mmol/L (3.5-5.1) L 03/07/18 06:59 Chloride 106 mmol/L (98-107) 03/07/18 06:59 Carbon Dioxide 21 mmol/L (22-30) L 03/07/18 06:59 Anion Gap 10 mmol/L 03/07/18 06:59 BUN 23 mg/dL (7-17) H 03/07/18 06:59 Creatinine 0.51 mg/dL (0.52-1.04) L 03/07/18 06:59 Est GFR (CKD-EPI)AfAm >90 (>60 ml/min/1.73 sqM) 03/07/18 06:59 Est GFR (CKD-EPI)NonAf >90 (>60 ml/min/1.73 sqM) 03/07/18 06:59 Glucose 102 mg/dL (74-99) H 03/07/18 06:59 Lactic Ac Sepsis Rflx Y 03/06/18 09:41 Plasma Lactic Acid Amrit 1.4 mmol/L (0.7-2.0) 03/06/18 14:08 Calcium 8.2 mg/dL (8.4-10.2) L 03/07/18 06:59 Magnesium 1.5 mg/dL (1.6-2.3) L 03/07/18 06:59 Total Bilirubin 1.9 mg/dL (0.2-1.3) H 03/07/18 06:59 AST 14 U/L (14-36) 03/07/18 06:59 ALT 26 U/L (9-52) 03/07/18 06:59 Alkaline Phosphatase 48 U/L (38-126) 03/07/18 06:59 Total Creatine Kinase 20 U/L (30-135) L 03/06/18 09:11 CK-MB (CK-2) 0.3 ng/mL (0.0-2.4) 03/06/18 09:11 CK-MB (CK-2) Rel Index 1.5 03/06/18 09:11 Troponin I <0.012 ng/mL (0.000-0.034) 03/06/18 09:11 NT-Pro-B Natriuret Pep 889 pg/mL 03/06/18 09:11 Total Protein 5.2 g/dL (6.3-8.2) L 03/07/18 06:59 Albumin 2.8 g/dL (3.5-5.0) L 03/07/18 06:59 Urine Color Yellow 03/06/18 19:30 Urine Appearance Clear (Clear) 03/06/18 19:30 Urine pH 5.5 (5.0-8.0) 03/06/18 19:30 Ur Specific [place] 1.018 (1.001-1.035) 03/06/18 19:30 Urine Protein 1+ (Negative) H 03/06/18 19:30 Urine Glucose (UA) Trace (Negative) H 03/06/18 19:30 Urine Ketones 2+ (Negative) H 03/06/18 19:30 Urine Blood Negative (Negative) 03/06/18 19:30 Urine Nitrite Negative (Negative) 03/06/18 19:30 Urine Bilirubin Negative (Negative) 03/06/18 19:30 Urine Urobilinogen <2.0 mg/dL (<2.0) 03/06/18 19:30 Ur Leukocyte Esterase Negative (Negative) 03/06/18 19:30 Urine RBC 3 /hpf (0-5) 03/06/18 19:30 Urine WBC 3 /hpf (0-5) 03/06/18 19:30 Ur Squamous Epith Cells 1 /hpf (0-4) 03/06/18 19:30 Urine Bacteria Occasional /hpf (None) H 03/06/18 19:30 Cellular Casts 3 /lpf (0) 03/06/18 19:30 Hyaline Casts 5 /lpf (0-2) H 03/06/18 19:30 Granular Casts 1 /lpf (0) 03/06/18 19:30 Urine Mucus Rare /hpf (None) H 03/06/18 19:30 Influenza Type A RNA Not Detected (Not Detectd) 03/06/18 09:50 Influenza Type B (PCR) Not Detected (Not Detectd) 03/06/18 09:50 Blood Type B Positive 03/06/18 10:20 Blood Type Confirm B Positive 03/06/18 09:11 Blood Type Recheck CABO Indicated 03/06/18 10:20 Antibody Screen NEGATIVE 03/06/18 10:20 Crossmatch See Detail 03/06/18 10:20 Spec Expiration Date 03/09/2018231903/06/18 10:20 Microbiology 03/06/18 19:30 Urine,Clean Catch Urine Culture - Final 03/06/18 09:11 Blood Blood Culture - Preliminary No Growth after 24 hours Assessment and Plan (1) Pancytopenia due to antineoplastic chemotherapy Current Visit: Yes Status: Acute Code(s): D61.810 - ANTINEOPLASTIC CHEMOTHERAPY INDUCED PANCYTOPENIA; T45.1X5A - ADVERSE EFFECT OF ANTINEOPLASTIC AND IMMUNOSUP DRUGS, INIT SNOMED Code(s): 601004939253765 (2) Fever Narrative/Plan: 57-year-old female with a diagnosis of non-small cell lung carcinoma from December 2017 receiving chemoradiation. His been having some increasing difficulties specifically with swallowing and eating and maintaining her calories. She is ongoing pain especially with swallowing and has not done well with cool solution or other maneuvers to try to help this till now. Protein supplements make her have nausea emesis and abdominal pain and is struggling with the dietitian to come up with a new solutions for supporting her calories. Possibly protein powder added to foods that she likes such as mass potatoes could help. We'll try some Carafate to see this cannot help with her significant soreness to her mouth and esophagus and overall not cause nausea or emesis For antibiotic therapy she is currently receiving vancomycin as well as cefepime which initiated the start of the consult. Cultures are processing negative so far. She significant neutropenia and is receiving growth factors per oncology. Blood transfusions have occurred for the significant anemia, no bleeding is noted and is being monitored for the needs for any platelets. Cultures will be monitored and further evaluations for any other source of infection. Given her significant symptoms will transition from fluconazole to micafungin to see if there can be any improvement for her oral and esophageal difficulties. Pulmonary critical care is following. No evidence of any beth pneumonia this point in time by her computed tomography scan. Current Visit: Yes Status: Acute Code(s): R50.9 - FEVER, UNSPECIFIED SNOMED Code(s): 251708943 (3) Non-small cell carcinoma of lung Current Visit: Yes Status: Acute Code(s): C34.90 - MALIGNANT NEOPLASM OF UNSP PART OF UNSP BRONCHUS OR LUNG SNOMED Code(s): 502388017
[2018-03-08] MEDS ORDERED: SUCRALFATE 1 GM TAB PO SCH (07:30)
[2018-03-08 07:35] LABS: HCT 21.2 % (34.0-46.0); HGB 7.6 gm/dL (11.4-16.0); Hyperchromasia Slight; MCH 29.1 pg (25.0-35.0); MCHC 36.1 g/dL (31.0-37.0); MCV 80.4 fL (80.0-100.0); Mean Platelet Volume 9.9; Poikilocytosis Slight; RBC 2.63 m/uL (3.80-5.40); RDW 13.5 % (11.5-15.5)
[2018-03-08 07:41] LABS: WBC 0.3 k/uL (3.8-10.6)
[2018-03-08 07:42] LABS: Platelet Count 23 k/uL (150-450)
[2018-03-08 07:45] LABS: ALT 24 U/L (9-52); AST 13 U/L (14-36); Albumin 2.6 g/dL (3.5-5.0); Alkaline Phosphatase 49 U/L (38-126); Anion Gap 10 mmol/L; Blood Urea Nitrogen 12 mg/dL (7-17); Calcium 8.5 mg/dL (8.4-10.2); Carbon Dioxide 23 mmol/L (22-30); Chloride 102 mmol/L (98-107); Glucose 83 mg/dL (74-99); Magnesium 1.4 mg/dL (1.6-2.3); Sodium 135 mmol/L (137-145); Total Bilirubin 1.2 mg/dL (0.2-1.3); Total Protein 4.9 g/dL (6.3-8.2)
[2018-03-08 08:06] LABS: Potassium 2.7 mmol/L (3.5-5.1)
[2018-03-08] MEDS: HYDROcodone/APAP 5-325MG 1 EACH TAB PO PRN ×3 (08:12→21:09)
[2018-03-08] MEDS ORDERED: Potassium Replacement Protocol 1 EACH MISC MISCELLANE PRN ×2 (08:25→20:10)
[2018-03-08] MEDS: SYMBICORT 160-4.5 MCG INHALER INHALATION SCH ×2 (08:39→20:45)
[2018-03-08] MEDS: IPRATROPIUM-ALBUTEROL 3 ML NEB INHALATION SCH ×4 (08:39→20:46)
[2018-03-08] MEDS: SUCRALFATE 1 GM TAB PO SCH ×5 (08:47→21:42)
[2018-03-08] MEDS: VANCOMYCIN 1,000 MG in SODIUM CHLORIDE 0.9% 250 ML IVPB SCH ×3 (08:47→16:09)
[2018-03-08] MEDS: SODIUM CHLORIDE 0.9% 1,000 ML IV SCH ×2 (08:48→15:02)
[2018-03-08] MEDS: CEFEPIME 2 GM in SODIUM CHLORIDE 0.9% 50 ML IVPB SCH ×3 (08:48→18:32)
[2018-03-08] MEDS: FILGRASTIM-SNDZ 300 MCG/0.5 ML SYRINGE SQ SCH (09:05)
[2018-03-08] MEDS: FAMOTIDINE 20 MG TAB PO SCH (09:05)
[2018-03-08] MEDS: FLUCONAZOLE 100 MG TAB PO SCH (09:06)
[2018-03-08] MEDS: POTASSIUM CHLORIDE 10 MEQ in WATER FOR INJECTION 1 100ML.BAG IVPB SCH ×3 (10:35→11:10)
[2018-03-08] MEDS: MAG HYDROX/AL HYDROX/SIMETH 30 ML, diphenhydrAMINE ELIXIR 75 MG, LIDOCAINE VISCOUS 30 ML PO SCH ×9 (10:35→21:07)
--- NOTE | 2018-03-08 10:53 | P.PN ---
Subjective Progress Note Date: 03/08/18 This is a 57-year-old female, patient of Dr. Mota. She has a known past medical history of lung cancer that was just diagnosed December 2016. Patient has been on chemo and radiation treatment beginning in January. She finished chemotherapy about a week ago. She had radiation treatment scheduled for today. When she went into her appointment she was told that she wasn't looking well and to go to the emergency room. Patient reports feeling short of breath having occasional cough. On Tuesday she did have a fever of 103. But then the fever broke and on Tuesday her temp was around 99. On admission she's been afebrile. Her CBC shows a hemoglobin of 5.4 white count 0.1 platelets 14. She' s receiving 2 units of blood. And oncology has ordered zarxio for her neutropenia. Chest x-ray left upper lobe atelectasis. Urinalysis and blood culture are pending. Patient was started on cefepime and vancomycin in the emergency room. Oncology, infectious disease and pulmonary services have been consulted. Patient does admit to having some sinus congestion that started today. Denies any burning with urination denies any diarrhea. She does admit to having a couple episodes of vomiting one on Tuesday and then again on Tuesday. Denies any sick contacts. Potassium is low and she is receiving supplement in the ER. 03/07/2018 patient is complaining of discomfort with swallowing where she has her known esophageal radiation burn. Patient sitting up in bed. Reports some improvement in shortness of breath. Denies any chest pain. Denies any nausea or vomiting. Reports last bowel movement was a couple days ago. Denies any burning with urination. Reports improvement in her cough. She received 2 units of blood yesterday. Hemoglobin is up to 6.5. White count 0.2 platelets 17 On 03/08/2018 patient is complaining of pain and burning in the IV site she is also complaining of discomfort with swallowing where she has her known esophageal radiation burn. She reports some improvement in shortness of breath. Denies any chest pain. Denies any nausea or vomiting. No abdominal pain Reports last bowel movement was a couple days ago. Denies any burning with urination. Reports improvement in her cough. She received 2 units of blood on Tuesday. Hemoglobin is up to 7.6. White count 0.3 platelets 23 Objective - Vital Signs Vital signs: Vital Signs Temp 98.3 F 03/08/18 07:25 Pulse 88 03/08/18 08:50 Resp 18 03/08/18 08:50 BP 103/63 03/08/18 07:25 Pulse Ox 96 03/08/18 07:25 Intake & Output 03/07/18 03/08/18 03/08/18 18:59 06:59 18:59 Intake Total 310 1140 Balance 310 1140 Weight 55.338 kg Intake: Intake, IV Titration 550 Amount Sodium Chloride 0.9% 1, 550 000 ml @ 50 mls/hr IV . Q20H RON Rx#:[id number] Oral 590 Blood Product 310 Rc Pheresis Irrad As 3 310 Unit [id number] Other: Voiding Method Toilet Toilet Toilet # Voids 1 1 1 - Exam Head normocephalic and atraumatic Neck supple no JVD no goiter no lymphadenopathy Lungs clear to auscultation bilaterally no wheezing or crackles Heart regular rate and rhythm S1-S2, no rub or gallop Abdomen is soft nontender nondistended positive bowel sounds no hepatosplenomegaly Extremities no edema no cyanosis or clubbing Neuro alert and orientated to 3 - Labs CBC & Chem 7: 03/08/18 07:02 03/08/18 07:02 Labs: Abnormal Lab Results - Last 24 Hours (Table) 03/06/18 03/08/18 03/08/18 Range/Units 10:20 07:02 07:02 WBC 0.3 L* (3.8-10.6) k/uL RBC 2.63 L (3.80-5.40) m/uL Hgb 7.6 L (11.4-16.0) gm/dL Hct 21.2 L (34.0-46.0) % Plt Count 23 L* (150-450) k/uL Sodium 135 L (137-145) mmol/L Potassium 2.7 L* (3.5-5.1) mmol/L Creatinine 0.50 L (0.52-1.04) mg/dL Magnesium 1.4 L (1.6-2.3) mg/dL AST 13 L (14-36) U/L Total Protein 4.9 L (6.3-8.2) g/dL Albumin 2.6 L (3.5-5.0) g/dL Crossmatch See Detail Microbiology - Last 24 Hours (Table) 03/06/18 19:30 Urine Culture - Final Urine,Clean Catch 03/06/18 09:11 Blood Culture - Preliminary Blood No Growth after 24 hours Assessment and Plan Plan: 1. Neutropenic sepsis: Patient currently on cefepime and vancomycin. Blood culture and urine culture are pending. Await further recommendations per infectious disease 2. Pancytopenia likely chemotherapy-induced: Oncology following. Patient received 2 units of blood yesterday. Hemoglobin is up to 6.5. Patient is scheduled to receive 1 more unit of blood. Also received filgrastim white count has gone up from 0.1-0.2. Platelets are 17. 3. Oral candidiasis: Patient not able to tolerate nystatin swish and swallow. Continue with the Diflucan 100 mg daily 3. Dyspnea: Possibly related to her anemia. Chest x-ray showing evidence of atelectasis. Pulmonary service consulted. Patient received a dose of IV Solu- Medrol in the ER. Continue nebulizer treatments 4. 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 Continue with IV fluid hydration normal saline at 50 mL an hour 5. History of non-small cell lung cancer diagnosed in December 2017: Patient reports completing chemotherapy. She still currently undergoing radiation treatment. Computed tomography scan of the chest report reviewed 6. Hypokalemia and hypomagnesemia: Patient receiving potassium and magnesium supplement 7. History of COPD Today patient was seen and examined medication and labs were reviewed Potassium replacement protocol initiated Continue current management otherwise will follow in a.m.
[2018-03-08] MEDS: POTASSIUM BICARBONATE/CIT AC 20 MEQ TABLET.EFF PO SCH ×3 (11:40→16:10)
[2018-03-08] MEDS: THIAMINE 100 MG TAB PO SCH (11:51)
[2018-03-08] MEDS: FERROUS SULFATE 325 MG TAB PO SCH (11:51)
--- NOTE | 2018-03-08 13:12 | P.CNPUL ---
History of Present Illness Consult date: 03/06/18 Reason for consult: dyspnea, lung mass Chief complaint: Dyspnea cough, fever, weakness History of present illness: This is a 57-year-old female with history of COPD. Her COPD is quite severe. FEV1 is 40% of predicted. The patient a previous episode of respiratory failure. More recently, she was inpatient [facility]. She had a chest x-ray and CAT scan which showed a infiltrative mass in the left hilum. She had a large left endobronchial lesion in the left mainstem bronchus. Anyway came back positive for squamous cell carcinoma. Subsequently, the patient underwent a PET scan on 01/16/2018 and showed a strongly metabolic left hilar and suprahilar mass measuring 5.5 cm in size invading the pericardium and causing extensive surrounding of the left hilar area in addition to hypermetabolic lymphadenopathy involving the right alana-parotid lymph node. No evidence of any visceral metastases within the abdomen or pelvic area. No evidence of any other pulmonary metastases. CAT scan of the brain showed no evidence of any enhancing mass. The case was discussed at the tumor board. The patient was subjected to concurrent chemoradiation therapy for locally advanced non-small cell lung cancer. The patient was seen by oncology and radiation therapy. The patient will be investigated for PDL 1 expression on the pathologic sample. Meanwhile she started radiation therapy and four-week cycle of systemic chemotherapy utilizing cis-chickaloon and [employer]-16. Care is being provided by Dr. Stephenson and by Dr. Noland. Today the patient presented to her oncologist for further evaluation. She was noted to be hypotensive with worsening shortness of breath. Over the past few days, the patient has become progressively more dyspneic and she had also had increasing cough. Her most recent systemic chemotherapy was approximately a week ago. She had a fever of 103. She was feeling malaise weakness. She also had 2 episodes of emesis. No abdominal pain. No significant chest pain. She is neutropenic with a white count of 0.1. She is also anemic with a hemoglobin of 5.4. Her platelet count was 14,000 and she is obviously pancytopenic. Her lactic acid level is at 2.6. No other screen was negative. Chest x-ray showed atelectatic change involving the left upper lobe. The patient was started and given Zarxio and the patient was given a dose of vancomycin. She is currently afebrile. She is tachycardic. Most recent BP is 92/50. Review of Systems Constitutional: Reports chills, Reports fatigue, Reports fever, Reports weakness Eyes: denies blurred vision, denies bulging eye, denies decreased vision Ears: deny: decreased hearing, ear discharge, earache Ears, nose, mouth and throat: Denies headache, Denies sore throat Cardiovascular: Reports decreased exercise tolerance, Reports dyspnea on exertion, Reports shortness of breath Respiratory: Reports dyspnea Gastrointestinal: Reports nausea, Reports vomiting Genitourinary: Denies dysuria, Denies hematuria Menstruation: Reports as per HPI Musculoskeletal: Denies myalgias Musculoskeletal: absent: ankle pain, ankle stiffness, ankle swelling Integumentary: Denies pruritus, Denies rash Neurological: Reports weakness Psychiatric: Denies anxiety, Denies depression Endocrine: Denies fatigue, Denies weight change Hematologic/Lymphatic: Reports as per HPI Allergic/Immunologic: Reports as per HPI Past Medical History Past Medical History: Cancer, COPD Additional Past Medical History / Comment(s): Squamous cell carcinoma of the lung, locally advanced at least with a large left hilar lesion, T3 lesion invading the mediastinum/pericardium, advanced COPD with an FEV1 of 40% of predicted History of Any Multi-Drug Resistant Organisms: None Reported Past Surgical History: Section Additional Past Surgical History / Comment(s): 01/20/18 PICC line insertion, bronchoscopy, colonoscopy, R lower jaw surgery for TMJ, x 2. Past Anesthesia/Blood Transfusion Reactions: Motion Sickness Past Psychological History: No Psychological Hx Reported Smoking Status: Former smoker Past Alcohol Use History: None Reported Past Drug Use History: None Reported - Past Family History Father History Unknown: Yes Mother Additional Family Medical History / Comment(s): Mother was obese. She about age 75yrs. Medications and Allergies Home Medications Medication Instructions Recorded Confirmed Type Aspirin 81 mg PO DAILY 01/20/18 03/06/18 History Ergocalciferol (Vitamin D2) 50,000 unit PO BLAKE 01/20/18 03/06/18 History [Vitamin D2] Famotidine 20 mg PO DAILY 01/20/18 03/06/18 History Naproxen 500 mg PO DAILY PRN 01/20/18 03/06/18 History Thiamine [Vitamin B-1] 50 mg PO DAILY 01/20/18 03/06/18 History Albuterol Inhaler [Ventolin Hfa 1 - 2 puff INHALATION RT-QID PRN 03/06/18 History Inhaler] Albuterol Nebulized [Ventolin 2.5 mg INHALATION RT-QID PRN 03/06/18 03/06/18 History Nebulized] Ferrous Sulfate [Feosol] 325 mg PO DAILY 03/06/18 03/06/18 History Fluticasone/Salmeterol [Advair 1 puff INHALATION RT-BID 03/06/18 03/06/18 History 500-50 Diskus] Tiotropium Narka [Spiriva] 1 cap INHALATION RT-DAILY 03/06/18 03/06/18 History Allergies Allergy/AdvReac Type Severity Reaction Status Date / Time ibuprofen Allergy BP DROPPED Verified 03/06/18 09:51 Physical Exam Vitals: Vital Signs Temp Pulse Resp BP Pulse Ox 03/06/18 17:00 103 H 16 92/50 100 03/06/18 16:30 97.2 F L 119 H 16 96/54 100 03/06/18 16:20 98.1 F 98 16 92/53 98 03/06/18 16:07 105 H 16 97/52 99 03/06/18 15:03 98.2 F 106 H 16 97/54 03/06/18 14:33 97.3 F L 107 H 20 101/55 03/06/18 14:23 97.2 F L 108 H 18 99/54 99 03/06/18 13:00 110 H 20 99/52 99 03/06/18 12:00 110 H 18 109/60 97 03/06/18 11:00 111 H 16 105/55 100 03/06/18 10:25 96 03/06/18 10:21 97 16 100/59 100 03/06/18 10:07 96 16 03/06/18 09:48 94 18 95/50 100 03/06/18 09:01 22 03/06/18 08:49 97.7 F 113 H 26 H 90/42 98 Intake and Output 03/06/18 03/06/18 03/06/18 06:59 14:59 22:59 Intake Total 0 310 Balance 0 310 Intake: Blood Product 0 310 Rc As-1 Unit 0 [id number] Rc As-1 Unit 0 310 [id number] Other: Weight 55.338 kg Gen. appearance the patient is pale, comfortable weak and somewhat lethargic. Nonacute distress.Head exam was generally normal. There was no scleral icterus or corneal arcus. Mucous membranes were moist.Neck was supple and without jugular venous distension, thyromegaly, or carotid bruits. Carotids were easily palpable bilaterally. There was no adenopathy. Lung sounds are diminished in the left compared to the right. Scattered expiratory wheezes throughout the lung welch bilaterally.Abdominal exam revealed normal bowel sounds. The abdomen was soft, non-tender, and without masses, organomegaly, or appreciable enlargement of the abdominal aorta.Examination of the extremities revealed easily palpable radial, femoral and pedal pulses. There was no cyanosis, clubbing or edema.Examination of the skin revealed no evidence of significant rashes, suspicious appearing nevi or other concerning lesions. Neurologically awake and alert and there is no focal neurological deficit. Results - Laboratory Findings CBC and BMP: 03/08/18 07:02 03/08/18 07:02 PT/INR, D-dimer PT 10.7 sec (9.0-12.0) 03/06/18 09:11 INR 1.1 (<1.2) 03/06/18 09:11 Abnormal lab findings: Abnormal Labs 03/06/18 03/06/18 03/06/18 09:11 09:11 09:11 WBC RBC Hgb Hct MCV MCHC Plt Count Sodium 132 L Potassium 3.1 L Chloride 94 L BUN 24 H Glucose 121 H Plasma Lactic Acid Amrit 2.6 H* Total Bilirubin 2.8 H Total Creatine Kinase 20 L Total Protein 6.1 L Albumin 3.4 L Crossmatch 03/06/18 03/06/18 09:11 10:20 WBC 0.1 L* RBC 1.85 L Hgb 5.4 L* Hct 14.5 L* MCV 78.1 L MCHC 37.4 H Plt Count 14 L* Sodium Potassium Chloride BUN Glucose Plasma Lactic Acid Amrit Total Bilirubin Total Creatine Kinase Total Protein Albumin Crossmatch See Detail - Diagnostic Findings Chest x-ray: image reviewed Assessment and Plan Plan: Assessment 1 locally advanced squamous cell carcinoma of the lung, fairly large T3 5 0.5 cm mass in the left hilum area causing collapse of the anterior segment of the left upper lobe. Superimposed pneumonia is likely 2 pancytopenia, chemo-induced 3 advanced COPD FEV1 of 40% of predicted 4 chronic hypoxic respiratory failure 5 lactic acidosis, mild Plan Obtain blood cultures. Cover this patient with a combination of cefepime and vancomycin. IV fluids. Give the patient 2 units of packed RBC. Monitor platelet count. Continue with Zarxio. May consider repeating the CAT scan of the chest to characterized abnormal at the left upper lobe. We'll continue to follow. Oncology consultation will be needed. Time with Patient: Greater than 30
--- NOTE | 2018-03-08 14:16 | P.PN ---
Subjective Progress Note Date: 03/08/18 Principal diagnosis: Neutropenic sepsis, non-small cell carcinoma of the lung locally advanced, status post chemoradiation This is a 57-year-old white female patient with recently diagnosed non-small cell carcinoma favoring squamous cell carcinoma, locally advanced invading mediastinum to pericardium, the PET scan showed a very large hypermetabolic left hilar mass, with invasion of the mediastinum and pericardium, left hilar adenopathy, lesion in the left parotid gland, paraspinal musculature uptake was also noted. Patient was started on definitive chemoradiation with [employer] 16 and cisplatin as a chemotherapy arm, she completed her radiation on 03/05/2018. He presented with increasing shortness of breath and weakness over the course of 4- 5 days, fevers up to 103F at home, difficulty in swallowing, and decreased oral intake. Patient was found to have marked pancytopenia with hemoglobin of 5.4, WBC of 0.1, and platelets of 14. Patient was hypoxemic, tachypneic and tachycardic. She was started on broad-spectrum abiotics, he was transfused with 2 units of PRBCs yesterday on 03/06/2018, however on today's blood work patient's hemoglobin only came up to 6.5, hence patient is receiving another unit of packed red blood cells. Patient was started on filgrastim for severe neutropenia. Blood and urine cultures remain negative so far. Currently on 3 L per nasal cannula with O2 sat 98%. Less tachycardic today, with a heart rate between 98-101 BPM. Afebrile. Her respirations are even and nonlabored. No dynamically stable. Louise today we started the patient on oral Diflucan, and Yogesh solution for radiation esophagitis, patient was unable to tolerate the Yogesh solution. Lung sounds are diminished over left upper lobe, clear on the right. Follow-up CT chest was reviewed, and showed improvement in the appearance of the known non-small cell lung cancer, which appears less conspicuous on the prior exam, but visually there is response to treatment. Additionally the hypermetabolic precarinal lymph nodes seen on the prior CT has decreased in size and is now nonenlarged by criteria. There is a new small left pleural effusion. The known hypermetabolic activity within the paraspinal musculature on the prior PET/CT demonstrates no measurable mass on today's CT and again MR could be considered for further evaluation. There is moderate central lobar emphysema seen on today's CT of the chest. Patient is on empiric antibiotic coverage with cefepime and vancomycin. She has been adequately fluid resuscitated, with 2 L of IV 0.9 normal saline and her maintenance IV fluids are infusing at a rate of 50 ML per hour. She is on nebulized bronchodilators, and Symbicort. Overall feeling better today. On 03/08/2018 patient seen in follow-up on oncology floor. Feeling better, less weak and tired, denies any dyspnea, denies any chest pain. Is mildly short of breath with exertion, but no acute respiratory distress noted. Less tachycardic, with a heart rate in the 80s, afebrile, vital signs are stable, on 2 L per nasal cannula her O2 sat at 96%. Blood and urine cultures show no growth to date. Today's blood work shows WBC of 0.3, hemoglobin is 7.6, patient is status post transfusion of 3 units of packed red blood cells, sodium is 135, potassium is 2.7, BUN is improving, and is down to 12 from 23, creatinine is 0.50. Asthma lactic acid was 1.4, patient did receive fluid resuscitation in the initial stages of neutropenic sepsis on admission. Serum magnesium is 1.4, and the patient is receiving potassium and magnesium supplementation. Her oral intake remains poor, she still has the dysphagia related to radiation esophagitis, however she reports it is improving and it is less painful to swallow. Fluids and screen was negative. Patient is being treated with cefepime and vancomycin for neutropenic sepsis, and the source of her sepsis has not been identified so far. No evidence of any beth pneumonia based on the computed tomography scan, there is a new small left pleural effusion, and the appearance of the known non-small cell lung cancer appeared to be less conspicuous on this CT chest compared to prior studies, there appears to be response to chemoradiation, and the hypermetabolic precarinal lymph nodes appear to have decreased in size response to treatment. Objective - Vital Signs Vital signs: Vital Signs Temp 98.3 F 03/08/18 07:25 Pulse 86 03/08/18 12:25 Resp 20 03/08/18 12:25 BP 103/63 03/08/18 07:25 Pulse Ox 96 03/08/18 07:25 Intake & Output 03/07/18 03/08/18 03/08/18 18:59 06:59 18:59 Intake Total 310 1140 Balance 310 1140 Weight 55.338 kg Intake: Intake, IV Titration 550 Amount Sodium Chloride 0.9% 1, 550 000 ml @ 50 mls/hr IV . Q20H [facility] Rx#:[id number] Oral 590 Blood Product 310 Rc Pheresis Irrad As 3 310 Unit [id number] Other: Voiding Method Toilet Toilet Toilet # Voids 1 1 1 - Exam GENERAL EXAM: Alert, pleasant, ill-looking 57-year-old pale white female comfortable in no apparent distress. HEAD: Normocephalic/atraumatic. EYES: Normal reaction of pupils, equal size. Conjunctiva pink, sclera white. NOSE: Clear with pink turbinates. THROAT: No erythema or exudates. NECK: No masses, no JVD, no thyroid enlargement, no adenopathy. CHEST: No chest wall deformity. Symmetrical expansion. LUNGS: Equal air entry diminished lung sounds over left upper lobe, clear on the right, no wheezes, no rhonchi noted CVS: Regular rate and rhythm, normal S1 and S2, no gallops, no murmurs, no rubs ABDOMEN: Soft, nontender. No hepatosplenomegaly, normal bowel sounds, no guarding or rigidity. EXTREMITIES: No clubbing, no edema, no cyanosis, 2+ pulses and upper and lower extremities. MUSCULOSKELETAL: Muscle strength and tone normal. SPINE: No scoliosis or deformity SKIN: No rashes CENTRAL NERVOUS SYSTEM: Alert and oriented -3. No focal deficits, tone is normal in all 4 extremities. PSYCHIATRIC: Alert and oriented -3. Appropriate affect. Intact judgment and insight. - Labs CBC & Chem 7: 03/08/18 07:02 03/08/18 07:02 Labs: Abnormal Lab Results - Last 24 Hours (Table) 03/08/18 03/08/18 Range/Units 07:02 07:02 WBC 0.3 L* (3.8-10.6) k/uL RBC 2.63 L (3.80-5.40) m/uL Hgb 7.6 L (11.4-16.0) gm/dL Hct 21.2 L (34.0-46.0) % Plt Count 23 L* (150-450) k/uL Sodium 135 L (137-145) mmol/L Potassium 2.7 L* (3.5-5.1) mmol/L Creatinine 0.50 L (0.52-1.04) mg/dL Magnesium 1.4 L (1.6-2.3) mg/dL AST 13 L (14-36) U/L Total Protein 4.9 L (6.3-8.2) g/dL Albumin 2.6 L (3.5-5.0) g/dL Microbiology - Last 24 Hours (Table) 03/06/18 09:11 Blood Culture - Preliminary Blood No Growth after 48 hours 03/06/18 19:30 Urine Culture - Final Urine,Clean Catch Assessment and Plan Plan: Assessment: #1. Acute neutropenic sepsis, the source is currently under investigation. Patient presented with weakness, fevers, chills. On admission to [facility] was 0.1, hemoglobin of 5.4, and platelets 14. Patient is currently undergoing chemoradiation for non-small cell lung carcinoma, locally advanced #2. Lactic acidosis secondary to the above, patient has been fluid resuscitated and subsequent lactic acid came down to 1.4 #3. Pancytopenia, likely chemotherapy induced. Patient has been transfused with 3 units of PRBCs, for hemoglobin of 5.4 the patient was initiated on filgrastim #4. Dysphagia, secondary to adhesions esophagitis #5. Dyspnea, possibly related to profound anemia, and a large left hilar mass invading mediastinum and pericardium #6. Oral candidiasis #7. Prerenal azotemia, secondary to dehydration and decreased oral intake #8. Mild hyponatremia, hypokalemia, and hypomagnesemia, probably related to decreased oral intake, and the patient is being given oral potassium and IV magnesium replacements #9. History of COPD Plan: Tinea current medical management, continue antibiotics in the form of cefepime and vancomycin, ID service has been consulted and their input was appreciated. Clinically patient reports improvement, denies any acute dyspnea, but appears to be dyspneic with exertion. She did receive 3 units of packed red blood cells , and on today's labs her hemoglobin is up to 7.6, she is also on filgrastim. She remains afebrile, cultures are negative thus far. She is still unable to tolerate the cool solution, she remains on Diflucan for oral candidiasis. Vital signs are stable. Continue with nebulized treatments. I performed a history & physical examination of the patient and discussed their management with my nurse practitioner, Rupinder Rudd. I reviewed the nurse practitioner's note and agree with the documented findings and plan of care. Lung sounds are diminished over left upper lobe. The findings and the impression was discussed with the patient. I attest to the documentation by the nurse practitioner. Time with Patient: Less than 30
[2018-03-08] MEDS ORDERED: VANCOMYCIN TROUGH DUE 1 EACH MISC MISCELLANE ONE (15:00)
[2018-03-08] MEDS ORDERED: POTASSIUM BICARBONATE/CIT AC 20 MEQ TABLET.EFF NG-TUBE SCH (21:00)
[2018-03-08] MEDS: POTASSIUM CHLORIDE ER 20 MEQ TAB.ER PO SCH ×2 (21:42→22:51)
--- NOTE | 2018-03-08 22:23 | P.PN ---
Subjective Progress Note Date: 03/08/18 Principal diagnosis: Fever 57-year-old female who has a known history of non-small cell lung carcinoma diagnosed in December 2017. She was found evidence of a large left hilar mass that invaded the mediastinum. Since that time she's been followed by oncology and receiving chemotherapy with [employer]-16, cis-ambler and radiation therapy. She's time difficulties with swallowing related to her radiation and chemotherapy. She feels weak and ill. She's been having increasing difficulties at home partly because she is having such great difficulties eating. She is tolerating some liquids well. However cannot tolerate protein supplements and cannot tolerate cool solution to help her with her difficulties with swallowing. She relates that protein supplements in the cool solution cause her to have intense emesis and abdominal pain. She is referred with the dietitian to try to come up with further plans to help her improve her protein intake. The day of admission showed a temperature 103 and was feeling very poorly and constantly presented to Hospital from the oncologist office. Also find evidence of significant anemia and has received several units of packed red cells up till now. She had no bleeding and has significant chemotherapy- induced thrombocytopenia also. With her fever and leukopenia the infectious diseases consultation was requested. This evening she is feeling just slightly better. Still having great difficulties ingesting food. But fever has improved with hydration and antibiotic therapy. Other than difficulty swallowing she relates no other new acute changes. Her shortness of breath actually has improved from December she has chronic cough that is not worse and she has no hemoptysis or significant sputum production. She is oxygen dependent and is now at 3 L with her acute illness. 03/08/2018 finds the patient to be feeling somewhat better. She is relating that she's had improved ability to swallow. Her shortness of breath is about the same. She continues to have difficulty with tolerance of some food. Is more comfortable today but still feels short of breath. Objective - Vital Signs Vital signs: Vital Signs Temp 98.0 F 03/08/18 21:18 Pulse 100 03/08/18 21:18 Resp 18 03/08/18 21:18 BP 102/62 03/08/18 21:18 Pulse Ox 98 03/08/18 21:18 Intake & Output 03/08/18 03/08/18 03/09/18 06:59 18:59 06:59 Intake Total 1140 Balance 1140 Intake: Intake, IV Titration 550 Amount Sodium Chloride 0.9% 1, 550 000 ml @ 50 mls/hr IV . Q20H COUNTS INCLUDE 234 BEDS AT THE [facility] Rx#:[id number] Oral 590 Other: Voiding Method Toilet Toilet # Voids 1 2 1 - Exam 57-year-old woman who looks older than her stated age, she has evidence of alopecia from her chemotherapy and appears to be thin and chronically ill HEENT: Anicteric conjunctiva are pink no eye lesions are seen. No bleeding from the nasal cavity. No bleeding from the mouth. She complains of difficulty with swallowing and thrush at the oral cavity is not coated but may have some mild mucositis in the posterior aspect of the throat no ulcerations are seen Neck: The neck is supple without significant lymphadenopathy or thyromegaly. Lungs: Symmetrical air entry is noted there is expiratory wheezes that are scattered, no stiff M bronchial sounds are noted. Heart: Regular rate and rhythm with an audible S1-S2, no S3 no S4. There is no significant murmur click or rub, PMI was nondisplaced. Abdomen: Positive bowel sounds soft and nontender without palpable masses or organomegaly. There was no guarding or rebound. Extremities: The upper extremities have excellent pulses they are symmetric, no significant petechiae or telangiectasia. No splinter hemorrhages were noted. The lower extremities are free from significant edema. The peripheral pulses were 2+ and symmetric. Neuro: Awake alert oriented to person place and time. There are no acute new gross focal sensory motor deficits. - Labs CBC & Chem 7: 03/08/18 07:02 03/08/18 18:42 Labs: Abnormal Lab Results - Last 24 Hours (Table) 03/08/18 03/08/18 03/08/18 Range/Units 07:02 07:02 18:42 WBC 0.3 L* (3.8-10.6) k/uL RBC 2.63 L (3.80-5.40) m/uL Hgb 7.6 L (11.4-16.0) gm/dL Hct 21.2 L (34.0-46.0) % Plt Count 23 L* (150-450) k/uL Sodium 135 L (137-145) mmol/L Potassium 2.7 L* 2.8 L* (3.5-5.1) mmol/L Creatinine 0.50 L (0.52-1.04) mg/dL Magnesium 1.4 L (1.6-2.3) mg/dL AST 13 L (14-36) U/L Total Protein 4.9 L (6.3-8.2) g/dL Albumin 2.6 L (3.5-5.0) g/dL Microbiology - Last 24 Hours (Table) 03/06/18 09:11 Blood Culture - Preliminary Blood No Growth after 48 hours 03/06/18 19:30 Urine Culture - Final Urine,Clean Catch Laboratory Results WBC 0.3 k/uL (3.8-10.6) L* 03/08/18 07:02 RBC 2.63 m/uL (3.80-5.40) L 03/08/18 07:02 Hgb 7.6 gm/dL (11.4-16.0) L 03/08/18 07:02 Hct 21.2 % (34.0-46.0) L 03/08/18 07:02 MCV 80.4 fL (80.0-100.0) 03/08/18 07:02 MCH 29.1 pg (25.0-35.0) 03/08/18 07:02 MCHC 36.1 g/dL (31.0-37.0) 03/08/18 07:02 RDW 13.5 % (11.5-15.5) 03/08/18 07:02 Plt Count 23 k/uL (150-450) L* 03/08/18 07:02 Differential Comment 03/08/18 07:02 Manual Slide Review Performed 03/08/18 07:02 Hyperchromasia Slight 03/08/18 07:02 Poikilocytosis Slight 03/08/18 07:02 Anisocytosis (manual) Present 03/07/18 06:59 PT 10.7 sec (9.0-12.0) 03/06/18 09:11 INR 1.1 (<1.2) 03/06/18 09:11 APTT 22.2 sec (22.0-30.0) 03/06/18 09:11 Sodium 135 mmol/L (137-145) L 03/08/18 07:02 Potassium 2.8 mmol/L (3.5-5.1) L* 03/08/18 18:42 Chloride 102 mmol/L (98-107) 03/08/18 07:02 Carbon Dioxide 23 mmol/L (22-30) 03/08/18 07:02 Anion Gap 10 mmol/L 03/08/18 07:02 BUN 12 mg/dL (7-17) 03/08/18 07:02 Creatinine 0.50 mg/dL (0.52-1.04) L 03/08/18 07:02 Est GFR (CKD-EPI)AfAm >90 (>60 ml/min/1.73 sqM) 03/08/18 07:02 Est GFR (CKD-EPI)NonAf >90 (>60 ml/min/1.73 sqM) 03/08/18 07:02 Glucose 83 mg/dL (74-99) 03/08/18 07:02 Lactic Ac Sepsis Rflx Y 03/06/18 09:41 Plasma Lactic Acid Amrit 1.4 mmol/L (0.7-2.0) 03/06/18 14:08 Calcium 8.5 mg/dL (8.4-10.2) 03/08/18 07:02 Magnesium 1.4 mg/dL (1.6-2.3) L 03/08/18 07:02 Total Bilirubin 1.2 mg/dL (0.2-1.3) 03/08/18 07:02 AST 13 U/L (14-36) L 03/08/18 07:02 ALT 24 U/L (9-52) 03/08/18 07:02 Alkaline Phosphatase 49 U/L (38-126) 03/08/18 07:02 Total Creatine Kinase 20 U/L (30-135) L 03/06/18 09:11 CK-MB (CK-2) 0.3 ng/mL (0.0-2.4) 03/06/18 09:11 CK-MB (CK-2) Rel Index 1.5 03/06/18 09:11 Troponin I <0.012 ng/mL (0.000-0.034) 03/06/18 09:11 NT-Pro-B Natriuret Pep 889 pg/mL 03/06/18 09:11 Total Protein 4.9 g/dL (6.3-8.2) L 03/08/18 07:02 Albumin 2.6 g/dL (3.5-5.0) L 03/08/18 07:02 Urine Color Yellow 03/06/18 19:30 Urine Appearance Clear (Clear) 03/06/18 19:30 Urine pH 5.5 (5.0-8.0) 03/06/18 19:30 Ur Specific [place] 1.018 (1.001-1.035) 03/06/18 19:30 Urine Protein 1+ (Negative) H 03/06/18 19:30 Urine Glucose (UA) Trace (Negative) H 03/06/18 19:30 Urine Ketones 2+ (Negative) H 03/06/18 19:30 Urine Blood Negative (Negative) 03/06/18 19:30 Urine Nitrite Negative (Negative) 03/06/18 19:30 Urine Bilirubin Negative (Negative) 03/06/18 19:30 Urine Urobilinogen <2.0 mg/dL (<2.0) 03/06/18 19:30 Ur Leukocyte Esterase Negative (Negative) 03/06/18 19:30 Urine RBC 3 /hpf (0-5) 03/06/18 19:30 Urine WBC 3 /hpf (0-5) 03/06/18 19:30 Ur Squamous Epith Cells 1 /hpf (0-4) 03/06/18 19:30 Urine Bacteria Occasional /hpf (None) H 03/06/18 19:30 Cellular Casts 3 /lpf (0) 03/06/18 19:30 Hyaline Casts 5 /lpf (0-2) H 03/06/18 19:30 Granular Casts 1 /lpf (0) 03/06/18 19:30 Urine Mucus Rare /hpf (None) H 03/06/18 19:30 Vancomycin Trough 23.9 ug/mL 03/08/18 15:05 Influenza Type A RNA Not Detected (Not Detectd) 03/06/18 09:50 Influenza Type B (PCR) Not Detected (Not Detectd) 03/06/18 09:50 Blood Type B Positive 03/06/18 10:20 Blood Type Confirm B Positive 03/06/18 09:11 Blood Type Recheck CABO Indicated 03/06/18 10:20 Antibody Screen NEGATIVE 03/06/18 10:20 Crossmatch See Detail 03/06/18 10:20 Spec Expiration Date 03/09/2018 - 231903/06/18 10:20 Microbiology 03/06/18 09:11 Blood Blood Culture - Preliminary No Growth after 48 hours 03/06/18 19:30 Urine,Clean Catch Urine Culture - Final Assessment and Plan (1) Pancytopenia due to antineoplastic chemotherapy Current Visit: Yes Status: Acute Code(s): D61.810 - ANTINEOPLASTIC CHEMOTHERAPY INDUCED PANCYTOPENIA; T45.1X5A - ADVERSE EFFECT OF ANTINEOPLASTIC AND IMMUNOSUP DRUGS, INIT SNOMED Code(s): 103366991440331 (2) Fever Narrative/Plan: 57-year-old female with a diagnosis of non-small cell lung carcinoma from December 2017 receiving chemoradiation. His been having some increasing difficulties specifically with swallowing and eating and maintaining her calories. She is ongoing pain especially with swallowing and has not done well with cool solution or other maneuvers to try to help this till now. Protein supplements make her have nausea emesis and abdominal pain and is struggling with the dietitian to come up with a new solutions for supporting her calories. Possibly protein powder added to foods that she likes such as mass potatoes could help. We'll try some Carafate to see this cannot help with her significant soreness to her mouth and esophagus and overall not cause nausea or emesis For antibiotic therapy she is currently receiving vancomycin as well as cefepime which initiated the start of the consult. Cultures are processing negative so far. She significant neutropenia and is receiving growth factors per oncology. Blood transfusions have occurred for the significant anemia, no bleeding is noted and is being monitored for the needs for any platelets. Cultures will be monitored and further evaluations for any other source of infection. Given her significant symptoms will transition from fluconazole to micafungin to see if there can be any improvement for her oral and esophageal difficulties. Pulmonary critical care is following. No evidence of any beth pneumonia this point in time by her computed tomography scan. 03/08/2018 reveals the patient to have ongoing pancytopenia but she is more comfortable. With transfusion the hemoglobin is improved which has helped her feel less short of breath. Therapy has been started and appears to be showing some improvement of the severe discomfort she has when she swallowing. Micafungin also been utilized which may be helping if there was a secondary fungal process. Fever has improved today. Await response to her growth factors which will then likely allow rapid resolution of her current symptoms. Current Visit: Yes Status: Acute Code(s): R50.9 - FEVER, UNSPECIFIED SNOMED Code(s): 478332580 (3) Non-small cell carcinoma of lung Current Visit: Yes Status: Acute Code(s): C34.90 - MALIGNANT NEOPLASM OF UNSP PART OF UNSP BRONCHUS OR LUNG SNOMED Code(s): 776800620
[2018-03-09] MEDS: POTASSIUM CHLORIDE ER 20 MEQ TAB.ER PO SCH (00:19)
[2018-03-09] MEDS: CEFEPIME 2 GM in SODIUM CHLORIDE 0.9% 50 ML IVPB SCH ×3 (02:46→17:54)
[2018-03-09] MEDS: VANCOMYCIN 1,000 MG in SODIUM CHLORIDE 0.9% 250 ML IVPB SCH ×2 (05:39→18:32)
[2018-03-09] MEDS: SYMBICORT 160-4.5 MCG INHALER INHALATION SCH ×2 (07:30→19:04)
[2018-03-09] MEDS: IPRATROPIUM-ALBUTEROL 3 ML NEB INHALATION SCH ×4 (07:30→19:04)
[2018-03-09 07:51] LABS: HCT 21.7 % (34.0-46.0); HGB 7.7 gm/dL (11.4-16.0); Hyperchromasia Moderate; MCH 28.7 pg (25.0-35.0); MCHC 35.5 g/dL (31.0-37.0); MCV 80.8 fL (80.0-100.0); Mean Platelet Volume 8.8; Poikilocytosis Slight; RBC 2.69 m/uL (3.80-5.40); RDW 13.6 % (11.5-15.5)
[2018-03-09 08:03] LABS: ALT 22 U/L (9-52); AST 16 U/L (14-36); Albumin 2.5 g/dL (3.5-5.0); Alkaline Phosphatase 49 U/L (38-126); Anion Gap 10 mmol/L; Blood Urea Nitrogen 8 mg/dL (7-17); Calcium 8.1 mg/dL (8.4-10.2); Carbon Dioxide 25 mmol/L (22-30); Chloride 98 mmol/L (98-107); Glucose 75 mg/dL (74-99); Magnesium 1.1 mg/dL (1.6-2.3); Potassium 3.1 mmol/L (3.5-5.1); Sodium 133 mmol/L (137-145); Total Bilirubin 1.2 mg/dL (0.2-1.3); Total Protein 4.7 g/dL (6.3-8.2)
[2018-03-09 08:04] LABS: Platelet Count 29 k/uL (150-450); WBC 0.7 k/uL (3.8-10.6)
[2018-03-09] MEDS: MAG HYDROX/AL HYDROX/SIMETH 30 ML, diphenhydrAMINE ELIXIR 75 MG, LIDOCAINE VISCOUS 30 ML PO SCH ×9 (08:47→21:15)
[2018-03-09] MEDS: HYDROcodone/APAP 5-325MG 1 EACH TAB PO PRN ×2 (08:48→14:40)
[2018-03-09] MEDS: FAMOTIDINE 20 MG TAB PO SCH (08:48)
[2018-03-09] MEDS: FLUCONAZOLE 100 MG TAB PO SCH (08:48)
[2018-03-09] MEDS: SUCRALFATE 1 GM TAB PO SCH ×4 (08:53→21:12)
[2018-03-09] MEDS: POTASSIUM CHLORIDE 10 MEQ in WATER FOR INJECTION 1 100ML.BAG IVPB SCH ×2 (09:10→12:55)
[2018-03-09] MEDS: FILGRASTIM-SNDZ 300 MCG/0.5 ML SYRINGE SQ SCH (09:39)
--- NOTE | 2018-03-09 10:39 | P.PN ---
Subjective Progress Note Date: 03/09/18 This is a 57-year-old female, patient of Dr. Mota. She has a known past medical history of lung cancer that was just diagnosed December 2016. Patient has been on chemo and radiation treatment beginning in January. She finished chemotherapy about a week ago. She had radiation treatment scheduled for today. When she went into her appointment she was told that she wasn't looking well and to go to the emergency room. Patient reports feeling short of breath having occasional cough. On Tuesday she did have a fever of 103. But then the fever broke and on Tuesday her temp was around 99. On admission she's been afebrile. Her CBC shows a hemoglobin of 5.4 white count 0.1 platelets 14. She' s receiving 2 units of blood. And oncology has ordered zarxio for her neutropenia. Chest x-ray left upper lobe atelectasis. Urinalysis and blood culture are pending. Patient was started on cefepime and vancomycin in the emergency room. Oncology, infectious disease and pulmonary services have been consulted. Patient does admit to having some sinus congestion that started today. Denies any burning with urination denies any diarrhea. She does admit to having a couple episodes of vomiting one on Tuesday and then again on Tuesday. Denies any sick contacts. Potassium is low and she is receiving supplement in the ER. 03/07/2018 patient is complaining of discomfort with swallowing where she has her known esophageal radiation burn. Patient sitting up in bed. Reports some improvement in shortness of breath. Denies any chest pain. Denies any nausea or vomiting. Reports last bowel movement was a couple days ago. Denies any burning with urination. Reports improvement in her cough. She received 2 units of blood yesterday. Hemoglobin is up to 6.5. White count 0.2 platelets 17 03/09/2018 patient still complaining of difficulty with eating due to her esophageal radiation burn. She reports that she is eating small amounts of food. And when the food hits the stomach she is now having abdominal pain. She 's had some nausea. No vomiting. Still has oral thrush. Magnesium and potassium are still low and she is receiving supplement. Patient denies any chest pain or vomiting. She is stomach shortness of breath with activity or when she has a lot of pain. Her pain medication makes the pain tolerable. Objective - Vital Signs Vital signs: Vital Signs Temp 98.5 F 03/09/18 07:00 Pulse 96 03/09/18 07:31 Resp 20 03/09/18 07:00 BP 117/69 03/09/18 07:00 Pulse Ox 98 03/08/18 21:18 Intake & Output 03/08/18 03/09/18 03/09/18 18:59 06:59 18:59 Weight 55.338 kg Other: Voiding Method Toilet Toilet Toilet # Voids 2 2 1 - Exam Mouth oral thrush Head normocephalic Neck supple Lungs clear to auscultation bilaterally no wheezing or crackles Heart regular rate and rhythm S1-S2, no rub or gallop Abdomen is soft nontender nondistended positive bowel sounds no hepatosplenomegaly Extremities no edema Neuro alert and orientated to 3 - Labs CBC & Chem 7: 03/09/18 06:53 03/09/18 06:53 Labs: Abnormal Lab Results - Last 24 Hours (Table) 03/08/18 03/09/18 03/09/18 Range/Units 18:42 06:53 06:53 WBC 0.7 L* (3.8-10.6) k/uL RBC 2.69 L (3.80-5.40) m/uL Hgb 7.7 L (11.4-16.0) gm/dL Hct 21.7 L (34.0-46.0) % Plt Count 29 L* (150-450) k/uL Sodium 133 L (137-145) mmol/L Potassium 2.8 L* 3.1 L (3.5-5.1) mmol/L Creatinine 0.43 L (0.52-1.04) mg/dL Calcium 8.1 L (8.4-10.2) mg/dL Magnesium 1.1 L (1.6-2.3) mg/dL Total Protein 4.7 L (6.3-8.2) g/dL Albumin 2.5 L (3.5-5.0) g/dL Microbiology - Last 24 Hours (Table) 03/06/18 09:11 Blood Culture - Preliminary Blood No Growth after 48 hours Assessment and Plan Assessment: 1. Neutropenic sepsis: Patient currently on cefepime and vancomycin. Blood culture and urine culture are negative. Patient is followed by infectious disease. 2. Pancytopenia likely chemotherapy-induced: Oncology following. Patient has received blood transfusions during this admission. Hemoglobin is up to 7.7. And is also on filgrastim for her neutropenia. White count is up to 0.7, platelets 29 3. Oral candidiasis: Patient not able to tolerate nystatin swish and swallow or cools solution. Continue with the Diflucan 100 mg daily 3. Dyspnea: Possibly related to her anemia and lung cancer. Chest x-ray showing evidence of atelectasis. Pulmonary service following 4. 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 Continue with IV fluid hydration normal saline at 50 mL an hour 5. History of non-small cell lung cancer diagnosed in December 2017: Patient is scheduled for radiation treatment today 6. Hypokalemia and hypomagnesemia: Patient receiving potassium and magnesium supplement 7. History of COPD 8. Radiation burn of the esophagus: Patient complaining of abdominal discomfort after eating. We'll discontinue Pepcid and place her on Protonix 40 mg IV twice a day. Continue Zofran as needed. Continue with dietitian recommendations for diet 9. Severe protein calorie malnutrition: Continue with protein supplement CODE STATUS addressed with patient she is requesting to be a no code I performed an examination of the patient and discussed their management with the physician Master Ocean. I have reviewed the Physician Master Ocean's notes and agree with the documented findings and plan of care
[2018-03-09] MEDS: MAGNESIUM SULFATE-D5W PMX 1 GM in DEXTROSE/WATER 1 100ML.BAG IVPB SCH ×2 (10:59→15:47)
[2018-03-09] MEDS: PANTOPRAZOLE 40 MG/10 ML VIAL IVP SCH ×2 (11:05→21:12)
[2018-03-09] MEDS: SODIUM CHLORIDE 0.9% 1,000 ML IV SCH (12:13)
--- NOTE | 2018-03-09 12:34 | P.PN ---
Subjective Progress Note Date: 03/09/18 Principal diagnosis: Pancytopenia Reena seen in follow-up today. She is weak and fatigued. Mouth is sore. Her counts are starting to mildly show recovery. No S/S bleeding. Objective - Vital Signs Vital signs: Vital Signs Temp 98.5 F 03/09/18 07:00 Pulse 116 H 03/09/18 12:17 Resp 20 03/09/18 12:17 BP 117/69 03/09/18 07:00 Pulse Ox 98 03/08/18 21:18 Intake & Output 03/08/18 03/09/18 03/09/18 18:59 06:59 18:59 Weight 55.338 kg Other: Voiding Method Toilet Toilet Toilet # Voids 2 2 1 - Constitutional General appearance: Present: cooperative, no acute distress - EENT Eyes: Present: EOMI, PERRLA, poor dentition ENT: Present: NA/AT, pharyngeal erythema, thrush - Neck Details: supple, trachea midline Neck: Present: normal ROM - Respiratory Respiratory: bilateral: CTA (No increased effort) - Cardiovascular Heart rate: 111 Rhythm: regular Heart sounds: normal: S1, S2 - Gastrointestinal General gastrointestinal: Present: normal bowel sounds, soft - Integumentary Integumentary: Present: pale - Neurologic Neurologic Comment(s): No focal defects Neurologic: Present: CNII-XII intact - Musculoskeletal Musculoskeletal: Present: gait normal, generalized weakness, strength equal bilaterally - Psychiatric Psychiatric: Present: A&O x's 3, appropriate affect, intact judgment & insight - Labs CBC & Chem 7: 03/09/18 06:53 03/09/18 06:53 Labs: Abnormal Lab Results - Last 24 Hours (Table) 03/08/18 03/09/18 03/09/18 Range/Units 18:42 06:53 06:53 WBC 0.7 L* (3.8-10.6) k/uL RBC 2.69 L (3.80-5.40) m/uL Hgb 7.7 L (11.4-16.0) gm/dL Hct 21.7 L (34.0-46.0) % Plt Count 29 L* (150-450) k/uL Sodium 133 L (137-145) mmol/L Potassium 2.8 L* 3.1 L (3.5-5.1) mmol/L Creatinine 0.43 L (0.52-1.04) mg/dL Calcium 8.1 L (8.4-10.2) mg/dL Magnesium 1.1 L (1.6-2.3) mg/dL Total Protein 4.7 L (6.3-8.2) g/dL Albumin 2.5 L (3.5-5.0) g/dL Microbiology - Last 24 Hours (Table) 03/06/18 09:11 Blood Culture - Preliminary Blood No Growth after 72 hours Assessment and Plan (1) Cancer of upper lobe of left lung Narrative/Plan: 1. Status Post Chemotherapy on 02/27 2. On Hold till count recovery and acute situation resolved Current Visit: Yes Status: Acute Code(s): C34.12 - MALIGNANT NEOPLASM OF UPPER LOBE, LEFT BRONCHUS OR LUNG SNOMED Code(s): 152173722 (2) Neutropenic sepsis Narrative/Plan: 1. Camp Culture 2. Oral Thrush and exudates 3. Zarxio 4. IV abx and antifungals Current Visit: Yes Status: Acute Code(s): A41.9 - SEPSIS, UNSPECIFIED ORGANISM; D70.9 - NEUTROPENIA, UNSPECIFIED SNOMED Code(s): 085856692 (3) Pancytopenia due to antineoplastic chemotherapy Narrative/Plan: 1. Monitor counts closely and daily 2. Transfuse hemoglobin less than 7 and plat less than 15 in presence of neutropenia sepsis induced by chemo (if bleeding try to transfuse to keep closer to 50) 3. Overall counts are recovering slowly. Continue to monitor for any s/s of infection and continue antibiotics. Current Visit: Yes Status: Acute Code(s): D61.810 - ANTINEOPLASTIC CHEMOTHERAPY INDUCED PANCYTOPENIA; T45.1X5A - ADVERSE EFFECT OF ANTINEOPLASTIC AND IMMUNOSUP DRUGS, INIT SNOMED Code(s): 449820423614177 Plan: Physician Attestation: I have completed the full history and physical on this patient. Discussed and agree with above dictation by Carmina Lopez [employer], Dictated as a scribe.
[2018-03-09] MEDS: FERROUS SULFATE 325 MG TAB PO SCH (13:18)
[2018-03-09] MEDS: THIAMINE 100 MG TAB PO SCH (13:21)
--- NOTE | 2018-03-09 14:01 | P.PN ---
Subjective Progress Note Date: 03/09/18 On 03/09/2018 the patient is being seen for a follow-up. 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 The patient has 2 more sessions of radiation therapy which will be completed over the next few days. Meanwhile, the patient came in for a neutropenic fever. She is currently afebrile. No source of infection has been identified. The patient's white cell count is gradually improving is currently is up to 0.7. She is doing well and she is covered with broad-spectrum antibiotics including antifungal agent with Diflucan knowing that she had difficulty with swallowing and some throat and posterior pharyngeal irritation and exudates. She is in better spirits today. Less tired and fatigued. No significant shortness of breath. No cough or sputum production. The plan is to monitor the counts as long as they're improving and the patient will have a session of radiation therapy today. Oncology is on the case. CAT scan of the chest showed atelectatic changes in the anterior segment of the left upper lobe. There are no new findings and the left suprahilar mass seems to be relatively unchanged, probably smaller compared to the previous CAT scan. No other new lesions or nodules noted. Objective - Vital Signs Vital signs: Vital Signs Temp 98.5 F 03/09/18 07:00 Pulse 116 H 03/09/18 12:17 Resp 20 03/09/18 12:17 BP 117/69 03/09/18 07:00 Pulse Ox 98 03/08/18 21:18 Intake & Output 03/08/18 03/09/18 03/09/18 18:59 06:59 18:59 Weight 55.338 kg Other: Voiding Method Toilet Toilet Toilet # Voids 2 2 1 - Exam Gen. appearance the patient is pale, comfortable and she has lost significant amount of hair secondary to chemotherapy and she has alopecia.. Nonacute distress.Head exam was generally normal. There was no scleral icterus or corneal arcus. Mucous membranes were moist.Neck was supple and without jugular venous distension, thyromegaly, or carotid bruits. Carotids were easily palpable bilaterally. There was no adenopathy. Lung sounds are diminished in the left compared to the right. Scattered expiratory wheezes throughout the lung welch bilaterally.Abdominal exam revealed normal bowel sounds. The abdomen was soft, non-tender, and without masses, organomegaly, or appreciable enlargement of the abdominal aorta.Examination of the extremities revealed easily palpable radial, femoral and pedal pulses. There was no cyanosis, clubbing or edema.Examination of the skin revealed no evidence of significant rashes, suspicious appearing nevi or other concerning lesions. Neurologically awake and alert and there is no focal neurological deficit. - Labs CBC & Chem 7: 03/09/18 06:53 03/09/18 06:53 Labs: Abnormal Lab Results - Last 24 Hours (Table) 03/08/18 03/09/18 03/09/18 Range/Units 18:42 06:53 06:53 WBC 0.7 L* (3.8-10.6) k/uL RBC 2.69 L (3.80-5.40) m/uL Hgb 7.7 L (11.4-16.0) gm/dL Hct 21.7 L (34.0-46.0) % Plt Count 29 L* (150-450) k/uL Sodium 133 L (137-145) mmol/L Potassium 2.8 L* 3.1 L (3.5-5.1) mmol/L Creatinine 0.43 L (0.52-1.04) mg/dL Calcium 8.1 L (8.4-10.2) mg/dL Magnesium 1.1 L (1.6-2.3) mg/dL Total Protein 4.7 L (6.3-8.2) g/dL Albumin 2.5 L (3.5-5.0) g/dL Microbiology - Last 24 Hours (Table) 03/06/18 09:11 Blood Culture - Preliminary Blood No Growth after 72 hours Assessment and Plan Plan: Assessment 1 locally advanced squamous cell carcinoma of the lung, fairly large T3 5 0.5 cm mass in the left hilum area causing collapse of the anterior segment of the left upper lobe. Superimposed pneumonia is likely. The patient is currently receiving chemoradiation therapy. She is about to complete the radiation therapy and the patient is on systemic chemotherapy and she presented to the hospital because of neutropenic fever and chemotherapy induced pancytopenia. Cultures of been all negative thus far and the patient's white cell count is gradually improving is up to 0.7. She has also been transfused with packed RBC. Overall feeling better. CAT scan of the chest was reviewed and there is no significant interval progression and the anterior segment of the left upper lobe is still atelectatic. No evidence of any superimposed pneumonia. 2 pancytopenia, chemo-induced, improving and the hemoglobin is up to 7.7 with a platelet count of 29,000 3 advanced COPD FEV1 of 40% of predicted 4 chronic hypoxic respiratory failure 5 lactic acidosis, mild 6 oropharyngeal candidiasis currently on Diflucan 7 profound weakness, improving, chemotherapy-induced Plan The patient is doing better as her white cell count is improving. Hemoglobin is stable. Continue current antibiotic coverage. Cultures of been negative thus far. Will proceed with a session of radiation today. Outpatient chemotherapy need to be considered once the patient is fully recovered. CAT scan of the chest shows no major interval progression yet the patient's left upper lobe is still atelectatic and the patient continues to have a left suprahilar mass. No evidence of any pneumonia based on the CAT scan findings. We'll continue to follow. Long-term prognosis poor.
--- NOTE | 2018-03-09 23:06 | P.PN ---
Subjective Progress Note Date: 03/09/18 Principal diagnosis: Fever 57-year-old female who has a known history of non-small cell lung carcinoma diagnosed in December 2017. She was found evidence of a large left hilar mass that invaded the mediastinum. Since that time she's been followed by oncology and receiving chemotherapy with [employer]-16, cis-fort bidwell and radiation therapy. She's time difficulties with swallowing related to her radiation and chemotherapy. She feels weak and ill. She's been having increasing difficulties at home partly because she is having such great difficulties eating. She is tolerating some liquids well. However cannot tolerate protein supplements and cannot tolerate cool solution to help her with her difficulties with swallowing. She relates that protein supplements in the cool solution cause her to have intense emesis and abdominal pain. She is referred with the dietitian to try to come up with further plans to help her improve her protein intake. The day of admission showed a temperature 103 and was feeling very poorly and constantly presented to Hospital from the oncologist office. Also find evidence of significant anemia and has received several units of packed red cells up till now. She had no bleeding and has significant chemotherapy- induced thrombocytopenia also. With her fever and leukopenia the infectious diseases consultation was requested. This evening she is feeling just slightly better. Still having great difficulties ingesting food. But fever has improved with hydration and antibiotic therapy. Other than difficulty swallowing she relates no other new acute changes. Her shortness of breath actually has improved from December she has chronic cough that is not worse and she has no hemoptysis or significant sputum production. She is oxygen dependent and is now at 3 L with her acute illness. 03/08/2018 finds the patient to be feeling somewhat better. She is relating that she's had improved ability to swallow. Her shortness of breath is about the same. She continues to have difficulty with tolerance of some food. Is more comfortable today but still feels short of breath. 03/09/2018 reveals the patient to have incremental improvements today. Her white blood cell count, hemoglobin and platelets of all improved and constantly she is feeling better. With Carafate and micafungin she's had further improvement of her ability to eat and swallow and is feeling better today. Overall pain and discomfort have improved. She will receive one of her last 2 radiation treatments today. Objective - Vital Signs Vital signs: Vital Signs Temp 98.8 F 03/09/18 21:56 Pulse 117 H 03/09/18 21:56 Resp 18 03/09/18 21:56 BP 102/57 03/09/18 21:56 Pulse Ox 97 03/09/18 21:56 Intake & Output 03/09/18 03/09/18 03/10/18 06:59 18:59 06:59 Weight 55.338 kg Other: Voiding Method Toilet Toilet # Voids 2 3 2 - Exam 57-year-old woman who looks older than her stated age, she has evidence of alopecia from her chemotherapy and appears to be thin and chronically ill HEENT: Anicteric conjunctiva are pink no eye lesions are seen. No bleeding from the nasal cavity. No bleeding from the mouth. She complains of difficulty with swallowing and thrush at the oral cavity is not coated but may have some mild mucositis in the posterior aspect of the throat no ulcerations are seen Neck: The neck is supple without significant lymphadenopathy or thyromegaly. Lungs: Symmetrical air entry is noted there is expiratory wheezes that are scattered, no stiff M bronchial sounds are noted. Heart: Regular rate and rhythm with an audible S1-S2, no S3 no S4. There is no significant murmur click or rub, PMI was nondisplaced. Abdomen: Positive bowel sounds soft and nontender without palpable masses or organomegaly. There was no guarding or rebound. Extremities: The upper extremities have excellent pulses they are symmetric, no significant petechiae or telangiectasia. No splinter hemorrhages were noted. The lower extremities are free from significant edema. The peripheral pulses were 2+ and symmetric. Neuro: Awake alert oriented to person place and time. There are no acute new gross focal sensory motor deficits. - Labs CBC & Chem 7: 03/09/18 06:53 03/09/18 06:53 Labs: Abnormal Lab Results - Last 24 Hours (Table) 03/09/18 03/09/18 Range/Units 06:53 06:53 WBC 0.7 L* (3.8-10.6) k/uL RBC 2.69 L (3.80-5.40) m/uL Hgb 7.7 L (11.4-16.0) gm/dL Hct 21.7 L (34.0-46.0) % Plt Count 29 L* (150-450) k/uL Sodium 133 L (137-145) mmol/L Potassium 3.1 L (3.5-5.1) mmol/L Creatinine 0.43 L (0.52-1.04) mg/dL Calcium 8.1 L (8.4-10.2) mg/dL Magnesium 1.1 L (1.6-2.3) mg/dL Total Protein 4.7 L (6.3-8.2) g/dL Albumin 2.5 L (3.5-5.0) g/dL Microbiology - Last 24 Hours (Table) 03/06/18 09:11 Blood Culture - Preliminary Blood No Growth after 72 hours Laboratory Results WBC 0.7 k/uL (3.8-10.6) L* 03/09/18 06:53 RBC 2.69 m/uL (3.80-5.40) L 03/09/18 06:53 Hgb 7.7 gm/dL (11.4-16.0) L 03/09/18 06:53 Hct 21.7 % (34.0-46.0) L 03/09/18 06:53 MCV 80.8 fL (80.0-100.0) 03/09/18 06:53 MCH 28.7 pg (25.0-35.0) 03/09/18 06:53 MCHC 35.5 g/dL (31.0-37.0) 03/09/18 06:53 RDW 13.6 % (11.5-15.5) 03/09/18 06:53 Plt Count 29 k/uL (150-450) L* 03/09/18 06:53 Differential Comment 03/09/18 06:53 Manual Slide Review Performed 03/09/18 06:53 Hyperchromasia Moderate 03/09/18 06:53 Poikilocytosis Slight 03/09/18 06:53 Anisocytosis (manual) Present 03/07/18 06:59 PT 10.7 sec (9.0-12.0) 03/06/18 09:11 INR 1.1 (<1.2) 03/06/18 09:11 APTT 22.2 sec (22.0-30.0) 03/06/18 09:11 Sodium 133 mmol/L (137-145) L 03/09/18 06:53 Potassium 3.1 mmol/L (3.5-5.1) L 03/09/18 06:53 Chloride 98 mmol/L (98-107) 03/09/18 06:53 Carbon Dioxide 25 mmol/L (22-30) 03/09/18 06:53 Anion Gap 10 mmol/L 03/09/18 06:53 BUN 8 mg/dL (7-17) 03/09/18 06:53 Creatinine 0.43 mg/dL (0.52-1.04) L 03/09/18 06:53 Est GFR (CKD-EPI)AfAm >90 (>60 ml/min/1.73 sqM) 03/09/18 06:53 Est GFR (CKD-EPI)NonAf >90 (>60 ml/min/1.73 sqM) 03/09/18 06:53 Glucose 75 mg/dL (74-99) 03/09/18 06:53 Lactic Ac Sepsis Rflx Y 03/06/18 09:41 Plasma Lactic Acid Amrit 1.4 mmol/L (0.7-2.0) 03/06/18 14:08 Calcium 8.1 mg/dL (8.4-10.2) L 03/09/18 06:53 Magnesium 1.1 mg/dL (1.6-2.3) L 03/09/18 06:53 Total Bilirubin 1.2 mg/dL (0.2-1.3) 03/09/18 06:53 AST 16 U/L (14-36) 03/09/18 06:53 ALT 22 U/L (9-52) 03/09/18 06:53 Alkaline Phosphatase 49 U/L (38-126) 03/09/18 06:53 Total Creatine Kinase 20 U/L (30-135) L 03/06/18 09:11 CK-MB (CK-2) 0.3 ng/mL (0.0-2.4) 03/06/18 09:11 CK-MB (CK-2) Rel Index 1.5 03/06/18 09:11 Troponin I <0.012 ng/mL (0.000-0.034) 03/06/18 09:11 NT-Pro-B Natriuret Pep 889 pg/mL 03/06/18 09:11 Total Protein 4.7 g/dL (6.3-8.2) L 03/09/18 06:53 Albumin 2.5 g/dL (3.5-5.0) L 03/09/18 06:53 Urine Color Yellow 03/06/18 19:30 Urine Appearance Clear (Clear) 03/06/18 19:30 Urine pH 5.5 (5.0-8.0) 03/06/18 19:30 Ur Specific [place] 1.018 (1.001-1.035) 03/06/18 19:30 Urine Protein 1+ (Negative) H 03/06/18 19:30 Urine Glucose (UA) Trace (Negative) H 03/06/18 19:30 Urine Ketones 2+ (Negative) H 03/06/18 19:30 Urine Blood Negative (Negative) 03/06/18 19:30 Urine Nitrite Negative (Negative) 03/06/18 19:30 Urine Bilirubin Negative (Negative) 03/06/18 19:30 Urine Urobilinogen <2.0 mg/dL (<2.0) 03/06/18 19:30 Ur Leukocyte Esterase Negative (Negative) 03/06/18 19:30 Urine RBC 3 /hpf (0-5) 03/06/18 19:30 Urine WBC 3 /hpf (0-5) 03/06/18 19:30 Ur Squamous Epith Cells 1 /hpf (0-4) 03/06/18 19:30 Urine Bacteria Occasional /hpf (None) H 03/06/18 19:30 Cellular Casts 3 /lpf (0) 03/06/18 19:30 Hyaline Casts 5 /lpf (0-2) H 03/06/18 19:30 Granular Casts 1 /lpf (0) 03/06/18 19:30 Urine Mucus Rare /hpf (None) H 03/06/18 19:30 Vancomycin Trough 23.9 ug/mL 03/08/18 15:05 Influenza Type A RNA Not Detected (Not Detectd) 03/06/18 09:50 Influenza Type B (PCR) Not Detected (Not Detectd) 03/06/18 09:50 Blood Type B Positive 03/06/18 10:20 Blood Type Confirm B Positive 03/06/18 09:11 Blood Type Recheck CABO Indicated 03/06/18 10:20 Antibody Screen NEGATIVE 03/06/18 10:20 Crossmatch See Detail 03/06/18 10:20 Spec Expiration Date 03/09/2018 - 231903/06/18 10:20 Microbiology 03/06/18 09:11 Blood Blood Culture - Preliminary No Growth after 72 hours 03/06/18 19:30 Urine,Clean Catch Urine Culture - Final Assessment and Plan (1) Pancytopenia due to antineoplastic chemotherapy Current Visit: Yes Status: Acute Code(s): D61.810 - ANTINEOPLASTIC CHEMOTHERAPY INDUCED PANCYTOPENIA; T45.1X5A - ADVERSE EFFECT OF ANTINEOPLASTIC AND IMMUNOSUP DRUGS, INIT SNOMED Code(s): 363881469838790 (2) Fever Narrative/Plan: 57-year-old female with a diagnosis of non-small cell lung carcinoma from December 2017 receiving chemoradiation. His been having some increasing difficulties specifically with swallowing and eating and maintaining her calories. She is ongoing pain especially with swallowing and has not done well with cool solution or other maneuvers to try to help this till now. Protein supplements make her have nausea emesis and abdominal pain and is struggling with the dietitian to come up with a new solutions for supporting her calories. Possibly protein powder added to foods that she likes such as mass potatoes could help. We'll try some Carafate to see this cannot help with her significant soreness to her mouth and esophagus and overall not cause nausea or emesis For antibiotic therapy she is currently receiving vancomycin as well as cefepime which initiated the start of the consult. Cultures are processing negative so far. She significant neutropenia and is receiving growth factors per oncology. Blood transfusions have occurred for the significant anemia, no bleeding is noted and is being monitored for the needs for any platelets. Cultures will be monitored and further evaluations for any other source of infection. Given her significant symptoms will transition from fluconazole to micafungin to see if there can be any improvement for her oral and esophageal difficulties. Pulmonary critical care is following. No evidence of any beth pneumonia this point in time by her computed tomography scan. 03/08/2018 reveals the patient to have ongoing pancytopenia but she is more comfortable. With transfusion the hemoglobin is improved which has helped her feel less short of breath. Therapy has been started and appears to be showing some improvement of the severe discomfort she has when she swallowing. Micafungin also been utilized which may be helping if there was a secondary fungal process. Fever has improved today. Await response to her growth factors which will then likely allow rapid resolution of her current symptoms. 03/09/2018 reveals further improvement. Pancytopenia continues to improve no need for further transfusions today. With Carafate and micafungin she is having improvement of her ability to swallow which is helping her overall quality of life. She does remain on antibiotic therapy until she has resolution of her neutropenia. Once resolved will be able to complete course of therapy with oral agents. As noted is scheduled to receive one of her last 2 last radiation treatments today. Current Visit: Yes Status: Acute Code(s): R50.9 - FEVER, UNSPECIFIED SNOMED Code(s): 806769090 (3) Non-small cell carcinoma of lung Current Visit: Yes Status: Acute Code(s): C34.90 - MALIGNANT NEOPLASM OF UNSP PART OF UNSP BRONCHUS OR LUNG SNOMED Code(s): 876819546
[2018-03-10] MEDS: CEFEPIME 2 GM in SODIUM CHLORIDE 0.9% 50 ML IVPB SCH ×3 (01:06→17:30)
[2018-03-10] MEDS: VANCOMYCIN 1,000 MG in SODIUM CHLORIDE 0.9% 250 ML IVPB SCH ×2 (06:06→18:37)
[2018-03-10] MEDS: IPRATROPIUM-ALBUTEROL 3 ML NEB INHALATION SCH ×4 (07:29→19:28)
[2018-03-10] MEDS: SYMBICORT 160-4.5 MCG INHALER INHALATION SCH ×2 (07:29→19:28)
[2018-03-10] MEDS: MAG HYDROX/AL HYDROX/SIMETH 30 ML, diphenhydrAMINE ELIXIR 75 MG, LIDOCAINE VISCOUS 30 ML PO SCH ×9 (07:47→20:57)
[2018-03-10] MEDS: SUCRALFATE 1 GM TAB PO SCH ×4 (08:06→21:19)
[2018-03-10] MEDS: HYDROcodone/APAP 5-325MG 1 EACH TAB PO PRN ×2 (08:07→17:47)
[2018-03-10] MEDS: FLUCONAZOLE 100 MG TAB PO SCH (08:07)
[2018-03-10] MEDS: PANTOPRAZOLE 40 MG/10 ML VIAL IVP SCH ×2 (08:10→21:19)
[2018-03-10 08:19] LABS: HCT 24.8 % (34.0-46.0); HGB 8.9 gm/dL (11.4-16.0); Hyperchromasia Slight; MCH 29.1 pg (25.0-35.0); MCHC 36.1 g/dL (31.0-37.0); MCV 80.8 fL (80.0-100.0); Mean Platelet Volume 8.9; Poikilocytosis Slight; RBC 3.07 m/uL (3.80-5.40); RDW 13.7 % (11.5-15.5)
[2018-03-10] MEDS: FILGRASTIM-SNDZ 300 MCG/0.5 ML SYRINGE SQ SCH (08:29)
[2018-03-10 08:32] LABS: Platelet Count 41 k/uL (150-450); WBC 1.7 k/uL (3.8-10.6)
[2018-03-10 08:38] LABS: ALT 21 U/L (9-52); AST 16 U/L (14-36); Albumin 2.8 g/dL (3.5-5.0); Alkaline Phosphatase 59 U/L (38-126); Anion Gap 9 mmol/L; Blood Urea Nitrogen 8 mg/dL (7-17); Calcium 8.4 mg/dL (8.4-10.2); Carbon Dioxide 30 mmol/L (22-30); Chloride 93 mmol/L (98-107); Glucose 79 mg/dL (74-99); Magnesium 1.3 mg/dL (1.6-2.3); Sodium 132 mmol/L (137-145); Total Protein 4.9 g/dL (6.3-8.2)
[2018-03-10 08:56] LABS: Potassium 2.8 mmol/L (3.5-5.1)
[2018-03-10] MEDS ORDERED: Potassium Replacement Protocol 1 EACH MISC MISCELLANE PRN (09:06)
[2018-03-10 10:33] LABS: Band Neutrophils % 9 %; Lymphocytes # (M) 0.19 k/uL (1.0-4.8); Monocytes # (M) 0.19 k/uL (0-1.0); Myelocytes # (M) 0.07 k/uL (0); Myelocytes % 4 %; Neutrophils % (M) 65 %; Nucleated Red Blood Cells 0 /100 WBC (0-0); Total Cells Counted 100
[2018-03-10 10:34] LABS: Anisocytosis (M) Present
[2018-03-10 10:35] LABS: RBC Fragments Present
[2018-03-10] MEDS: POTASSIUM CHLORIDE 10 MEQ in WATER FOR INJECTION 1 100ML.BAG IVPB SCH ×3 (10:58→15:10)
--- NOTE | 2018-03-10 12:57 | P.PN ---
Subjective Progress Note Date: 03/10/18 This is a 57-year-old female, patient of Dr. Mota. She has a known past medical history of lung cancer that was just diagnosed December 2016. Patient has been on chemo and radiation treatment beginning in January. She finished chemotherapy about a week ago. She had radiation treatment scheduled for today. When she went into her appointment she was told that she wasn't looking well and to go to the emergency room. Patient reports feeling short of breath having occasional cough. On Tuesday she did have a fever of 103. But then the fever broke and on Tuesday her temp was around 99. On admission she's been afebrile. Her CBC shows a hemoglobin of 5.4 white count 0.1 platelets 14. She' s receiving 2 units of blood. And oncology has ordered zarxio for her neutropenia. Chest x-ray left upper lobe atelectasis. Urinalysis and blood culture are pending. Patient was started on cefepime and vancomycin in the emergency room. Oncology, infectious disease and pulmonary services have been consulted. Patient does admit to having some sinus congestion that started today. Denies any burning with urination denies any diarrhea. She does admit to having a couple episodes of vomiting one on Tuesday and then again on Tuesday. Denies any sick contacts. Potassium is low and she is receiving supplement in the ER. 03/07/2018 patient is complaining of discomfort with swallowing where she has her known esophageal radiation burn. Patient sitting up in bed. Reports some improvement in shortness of breath. Denies any chest pain. Denies any nausea or vomiting. Reports last bowel movement was a couple days ago. Denies any burning with urination. Reports improvement in her cough. She received 2 units of blood yesterday. Hemoglobin is up to 6.5. White count 0.2 platelets 17 03/09/2018 patient still complaining of difficulty with eating due to her esophageal radiation burn. She reports that she is eating small amounts of food. And when the food hits the stomach she is now having abdominal pain. She 's had some nausea. No vomiting. Still has oral thrush. Magnesium and potassium are still low and she is receiving supplement. Patient denies any chest pain or vomiting. She is stomach shortness of breath with activity or when she has a lot of pain. Her pain medication makes the pain tolerable. 03/10/2018 patient had radiation treatment today. Patient has some hypotension after the radiation treatment. She received fluid bolus. Blood pressure improving at 11/24/1964. Patient is asymptomatic. Denies any dizziness or lightheadedness. Patient denies any chest pain or shortness of breath. Reporting constipation. Colace will be started. Pancytopenia showing improvement Objective - Vital Signs Vital signs: Vital Signs Temp 98.2 F 03/10/18 08:22 Pulse 98 03/10/18 12:00 Resp 18 03/10/18 08:33 BP 104/64 03/10/18 11:28 Pulse Ox 97 03/10/18 08:22 Intake & Output 03/09/18 03/10/18 03/10/18 18:59 06:59 18:59 Output Total 600 Balance -600 Weight 55.338 kg 55.338 kg Output: Urine 600 Other: Voiding Method Toilet Toilet Toilet # Voids 3 1 1 - Exam Mouth oral thrush Head normocephalic Neck supple Lungs clear to auscultation bilaterally no wheezing or crackles Heart regular rate and rhythm S1-S2, no rub or gallop Abdomen is soft nontender nondistended positive bowel sounds no hepatosplenomegaly Extremities no edema Neuro alert and orientated to 3 - Labs CBC & Chem 7: 03/10/18 07:46 03/10/18 07:46 Labs: Abnormal Lab Results - Last 24 Hours (Table) 03/10/18 03/10/18 Range/Units 07:46 07:46 WBC 1.7 L* (3.8-10.6) k/uL RBC 3.07 L (3.80-5.40) m/uL Hgb 8.9 L (11.4-16.0) gm/dL Hct 24.8 L (34.0-46.0) % Plt Count 41 L* (150-450) k/uL Neutrophils # (Manual) 1.20 L (1.3-7.7) k/uL Lymphocytes # (Manual) 0.19 L (1.0-4.8) k/uL Myelocytes # (Manual) 0.07 H (0) k/uL Sodium 132 L (137-145) mmol/L Potassium 2.8 L* (3.5-5.1) mmol/L Chloride 93 L (98-107) mmol/L Creatinine 0.48 L (0.52-1.04) mg/dL Magnesium 1.3 L (1.6-2.3) mg/dL Total Protein 4.9 L (6.3-8.2) g/dL Albumin 2.8 L (3.5-5.0) g/dL Microbiology - Last 24 Hours (Table) 03/06/18 09:11 Blood Culture - Preliminary Blood No Growth after 96 hours Assessment and Plan Assessment: 1. Neutropenic sepsis: Patient currently on cefepime and vancomycin. Blood culture and urine culture are negative. Patient is followed by infectious disease. 2. Pancytopenia likely chemotherapy-induced: Oncology following. Patient has received blood transfusions during this admission. Pancytopenia shown improvement. And is also on filgrastim for her neutropenia. 3. Oral candidiasis: Patient not able to tolerate nystatin swish and swallow or cools solution. Continue with the Diflucan 100 mg daily 3. Dyspnea: Possibly related to her anemia and lung cancer. Chest x-ray showing evidence of atelectasis. Pulmonary service following 4. 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 Continue with IV fluid hydration normal saline at 50 mL an hour 5. History of non-small cell lung cancer diagnosed in December 2017: Patient is scheduled for radiation treatment today 6. Hypokalemia and hypomagnesemia: Patient is still requiring magnesium and potassium supplements. 7. History of COPD 8. Radiation burn of the esophagus: Patient complaining of abdominal discomfort after eating. We'll discontinue Pepcid and place her on Protonix 40 mg IV twice a day. Continue Zofran as needed. Continue with dietitian recommendations for diet 9. Severe protein calorie malnutrition: Continue with protein supplement 10. Constipation we'll start Colace 11. Hypotension: Did improve with the fluid bolus CODE STATUS addressed with patient she is requesting to be a no code I performed an examination of the patient and discussed their management with the physician [employer]. I have reviewed the Physician [employer] Helper's notes and agree with the documented findings and plan of care
[2018-03-10] MEDS: THIAMINE 100 MG TAB PO SCH (13:57)
[2018-03-10] MEDS: FERROUS SULFATE 325 MG TAB PO SCH (13:58)
[2018-03-10] MEDS: DOCUSATE 100 MG CAP PO SCH ×2 (14:01→21:19)
[2018-03-10] MEDS: MAGNESIUM SULFATE-D5W PMX 1 GM in DEXTROSE/WATER 1 100ML.BAG IVPB SCH ×3 (14:01→17:30)
--- NOTE | 2018-03-10 14:12 | P.PN ---
Subjective Progress Note Date: 03/10/18 On 03/09/2018 the patient is being seen for a follow-up. 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 The patient has 2 more sessions of radiation therapy which will be completed over the next few days. Meanwhile, the patient came in for a neutropenic fever. She is currently afebrile. No source of infection has been identified. The patient's white cell count is gradually improving is currently is up to 0.7. She is doing well and she is covered with broad-spectrum antibiotics including antifungal agent with Diflucan knowing that she had difficulty with swallowing and some throat and posterior pharyngeal irritation and exudates. She is in better spirits today. Less tired and fatigued. No significant shortness of breath. No cough or sputum production. The plan is to monitor the counts as long as they're improving and the patient will have a session of radiation therapy today. Oncology is on the case. CAT scan of the chest showed atelectatic changes in the anterior segment of the left upper lobe. There are no new findings and the left suprahilar mass seems to be relatively unchanged, probably smaller compared to the previous CAT scan. No other new lesions or nodules noted. On 03/10/2089 seeing this patient for a follow-up. She is looking well. She has no specific complaints. She underwent a radiation session yesterday and she will have her final session done today. She is improving is otherwise a count is up to 1.7. She is ambulating. No nausea. No vomiting. No fever. Cultures of been all negative. Tolerating diet. No other significant events over the past 24 hours. Note that her hematologic profile is improving. Hemoglobin is improving. Platelet count is improving. Potassium level recently placed by potassium level from today is at 2.8. Objective - Vital Signs Vital signs: Vital Signs Temp 98.2 F 03/10/18 08:22 Pulse 98 03/10/18 12:00 Resp 18 03/10/18 08:33 BP 104/64 03/10/18 11:28 Pulse Ox 97 03/10/18 08:22 Intake & Output 03/09/18 03/10/18 03/10/18 18:59 06:59 18:59 Output Total 600 Balance -600 Weight 55.338 kg 55.338 kg Output: Urine 600 Other: Voiding Method Toilet Toilet Toilet # Voids 3 1 1 - Exam Gen. appearance the patient is pale, comfortable and she has lost significant amount of hair secondary to chemotherapy and she has alopecia.. Nonacute distress.Head exam was generally normal. There was no scleral icterus or corneal arcus. Mucous membranes were moist.Neck was supple and without jugular venous distension, thyromegaly, or carotid bruits. Carotids were easily palpable bilaterally. There was no adenopathy. Lung sounds are diminished in the left compared to the right. Scattered expiratory wheezes throughout the lung welch bilaterally.Abdominal exam revealed normal bowel sounds. The abdomen was soft, non-tender, and without masses, organomegaly, or appreciable enlargement of the abdominal aorta.Examination of the extremities revealed easily palpable radial, femoral and pedal pulses. There was no cyanosis, clubbing or edema.Examination of the skin revealed no evidence of significant rashes, suspicious appearing nevi or other concerning lesions. Neurologically awake and alert and there is no focal neurological deficit. - Labs CBC & Chem 7: 03/10/18 07:46 03/10/18 07:46 Labs: Abnormal Lab Results - Last 24 Hours (Table) 03/10/18 03/10/18 Range/Units 07:46 07:46 WBC 1.7 L* (3.8-10.6) k/uL RBC 3.07 L (3.80-5.40) m/uL Hgb 8.9 L (11.4-16.0) gm/dL Hct 24.8 L (34.0-46.0) % Plt Count 41 L* (150-450) k/uL Neutrophils # (Manual) 1.20 L (1.3-7.7) k/uL Lymphocytes # (Manual) 0.19 L (1.0-4.8) k/uL Myelocytes # (Manual) 0.07 H (0) k/uL Sodium 132 L (137-145) mmol/L Potassium 2.8 L* (3.5-5.1) mmol/L Chloride 93 L (98-107) mmol/L Creatinine 0.48 L (0.52-1.04) mg/dL Magnesium 1.3 L (1.6-2.3) mg/dL Total Protein 4.9 L (6.3-8.2) g/dL Albumin 2.8 L (3.5-5.0) g/dL Microbiology - Last 24 Hours (Table) 03/06/18 09:11 Blood Culture - Preliminary Blood No Growth after 96 hours Assessment and Plan Plan: Assessment 1 locally advanced squamous cell carcinoma of the lung, fairly large T3 5 0.5 cm mass in the left hilum area causing collapse of the anterior segment of the left upper lobe. Superimposed pneumonia is likely. The patient is currently receiving chemoradiation therapy. She is about to complete the radiation therapy and the patient is on systemic chemotherapy and she presented to the hospital because of neutropenic fever and chemotherapy induced pancytopenia. On 03/10/2018 the patient is clinically improved. The patient's white cell count is up to 1.7. Hemoglobin is stable and the plated count is also improving. She is completing her radiation therapy. She is still on broad- spectrum antibiotics and the patient's cultures of been negative thus far. She is afebrile for now. 2 pancytopenia, chemo-induced, improving and her white cell count is up to 1.7 3 advanced COPD FEV1 of 40% of predicted 4 chronic hypoxic respiratory failure 5 lactic acidosis, mild 6 oropharyngeal candidiasis currently on Diflucan 7 profound weakness, improving, chemotherapy-induced Plan Completed radiation therapy from today. Continue Diflucan. Continue cefepime and vancomycin until the patient's white cell count normalizes. Continue 1 more dose of Zarxio. Replace the potassium. We'll continue to follow.
--- NOTE | 2018-03-10 16:20 | P.PN ---
Subjective Progress Note Date: 03/10/18 Principal diagnosis: Pancytopenia Reena seen in follow-up today. She is weak and fatigued. Her counts are starting to mildly show recovery. No S/S bleeding. No Diarrhea, still low potassium Objective - Vital Signs Vital signs: Vital Signs Temp 98.0 F 03/10/18 15:00 Pulse 102 H 03/10/18 15:00 Resp 16 03/10/18 15:00 BP 104/60 03/10/18 15:00 Pulse Ox 95 03/10/18 15:00 Intake & Output 03/09/18 03/10/18 03/10/18 18:59 06:59 18:59 Intake Total 250 Output Total 600 Balance -350 Weight 55.338 kg 55.338 kg Intake: Oral 250 Output: Urine 600 Other: Voiding Method Toilet Toilet Toilet # Voids 3 1 2 - Constitutional General appearance: Present: average body habitus, no acute distress - EENT Eyes: Present: EOMI, PERRLA, poor dentition ENT: Present: NA/AT, normal oropharynx - Neck Neck: Present: normal ROM - Respiratory Respiratory: bilateral: CTA - Cardiovascular Rhythm: regular Heart sounds: normal: S1, S2 - Gastrointestinal General gastrointestinal: Present: normal bowel sounds, soft - Integumentary Integumentary: Present: pale - Neurologic Neurologic: Present: CNII-XII intact - Musculoskeletal Musculoskeletal: Present: generalized weakness, strength equal bilaterally - Psychiatric Psychiatric: Present: A&O x's 3, appropriate affect, intact judgment & insight - Labs CBC & Chem 7: 03/10/18 07:46 03/10/18 07:46 Labs: Abnormal Lab Results - Last 24 Hours (Table) 03/10/18 03/10/18 Range/Units 07:46 07:46 WBC 1.7 L* (3.8-10.6) k/uL RBC 3.07 L (3.80-5.40) m/uL Hgb 8.9 L (11.4-16.0) gm/dL Hct 24.8 L (34.0-46.0) % Plt Count 41 L* (150-450) k/uL Neutrophils # (Manual) 1.20 L (1.3-7.7) k/uL Lymphocytes # (Manual) 0.19 L (1.0-4.8) k/uL Myelocytes # (Manual) 0.07 H (0) k/uL Sodium 132 L (137-145) mmol/L Potassium 2.8 L* (3.5-5.1) mmol/L Chloride 93 L (98-107) mmol/L Creatinine 0.48 L (0.52-1.04) mg/dL Magnesium 1.3 L (1.6-2.3) mg/dL Total Protein 4.9 L (6.3-8.2) g/dL Albumin 2.8 L (3.5-5.0) g/dL Microbiology - Last 24 Hours (Table) 03/06/18 09:11 Blood Culture - Preliminary Blood No Growth after 96 hours Assessment and Plan (1) Cancer of upper lobe of left lung Narrative/Plan: 1. Status Post Chemotherapy on 02/27 2. On Hold till count recovery and acute situation resolved Current Visit: Yes Status: Acute Code(s): C34.12 - MALIGNANT NEOPLASM OF UPPER LOBE, LEFT BRONCHUS OR LUNG SNOMED Code(s): 393681287 (2) Neutropenic sepsis Narrative/Plan: 1. Camp Culture 2. Oral Thrush and exudates 3. Zarxio 4. IV abx and antifungals Current Visit: Yes Status: Acute Code(s): A41.9 - SEPSIS, UNSPECIFIED ORGANISM; D70.9 - NEUTROPENIA, UNSPECIFIED SNOMED Code(s): 304535603 (3) Pancytopenia due to antineoplastic chemotherapy Narrative/Plan: 1. Monitor counts closely and daily 2. Transfuse hemoglobin less than 7 and plat less than 15 in presence of neutropenia sepsis induced by chemo (if bleeding try to transfuse to keep closer to 50) 3. Overall counts are recovering slowly. Continue to monitor for any s/s of infection and continue antibiotics. Current Visit: Yes Status: Acute Code(s): D61.810 - ANTINEOPLASTIC CHEMOTHERAPY INDUCED PANCYTOPENIA; T45.1X5A - ADVERSE EFFECT OF ANTINEOPLASTIC AND IMMUNOSUP DRUGS, INIT SNOMED Code(s): 316736528278157 Plan: Physician Attestation: I have completed the full history and physical on this patient. Discussed and agree with above dictation by Carmina Lopez TIN ROOFER, Dictated as a scribe.
[2018-03-10] MEDS: SODIUM CHLORIDE 0.9% 1,000 ML IV SCH (17:30)
[2018-03-10] MEDS: POTASSIUM CHLORIDE ER 20 MEQ TAB.ER PO SCH ×2 (21:16→22:22)
[2018-03-10] MEDS: POTASSIUM CHLORIDE 20 MEQ in WATER FOR INJECTION 1 100ML.BAG IVPB SCH ×2 (21:18→22:58)
[2018-03-11] MEDS: POTASSIUM CHLORIDE 20 MEQ in WATER FOR INJECTION 1 100ML.BAG IVPB SCH (00:45)
[2018-03-11] MEDS: POTASSIUM CHLORIDE ER 20 MEQ TAB.ER PO SCH (02:17)
[2018-03-11] MEDS: CEFEPIME 2 GM in SODIUM CHLORIDE 0.9% 50 ML IVPB SCH ×3 (02:36→17:37)
[2018-03-11] MEDS: ONDANSETRON 4 MG/2 ML VIAL IVP PRN (02:41)
[2018-03-11] MEDS ORDERED: VANCOMYCIN TROUGH DUE 1 EACH MISC MISCELLANE ONE (05:00)
[2018-03-11] MEDS: VANCOMYCIN 1,000 MG in SODIUM CHLORIDE 0.9% 250 ML IVPB SCH ×2 (06:03→18:20)
[2018-03-11 06:24] LABS: Anion Gap 7 mmol/L; Blood Urea Nitrogen 9 mg/dL (7-17); Calcium 8.4 mg/dL (8.4-10.2); Carbon Dioxide 30 mmol/L (22-30); Chloride 97 mmol/L (98-107); Glucose 93 mg/dL (74-99); Magnesium 1.6 mg/dL (1.6-2.3); Potassium 3.2 mmol/L (3.5-5.1); Sodium 134 mmol/L (137-145)
[2018-03-11 06:38] LABS: Anisocytosis Slight; HCT 21.5 % (34.0-46.0); MCH 28.7 pg (25.0-35.0); MCHC 34.5 g/dL (31.0-37.0); MCV 83.2 fL (80.0-100.0); Mean Platelet Volume 8.7; Poikilocytosis Slight; RBC 2.58 m/uL (3.80-5.40); RDW 19.3 % (11.5-15.5); WBC 2.6 k/uL (3.8-10.6)
[2018-03-11 06:44] LABS: Platelet Count 46 k/uL (150-450)
[2018-03-11 06:45] LABS: HGB 7.4 gm/dL (11.4-16.0)
[2018-03-11] MEDS: SYMBICORT 160-4.5 MCG INHALER INHALATION SCH ×2 (07:12→19:55)
[2018-03-11] MEDS: IPRATROPIUM-ALBUTEROL 3 ML NEB INHALATION SCH ×4 (07:12→19:55)
[2018-03-11] MEDS: MAG HYDROX/AL HYDROX/SIMETH 30 ML, diphenhydrAMINE ELIXIR 75 MG, LIDOCAINE VISCOUS 30 ML PO SCH ×9 (07:22→19:41)
[2018-03-11 07:51] LABS: Band Neutrophils % 4 %; Eosinophils # (M) 0.03 k/uL (0-0.7); Lymphocytes # (M) 0.34 k/uL (1.0-4.8); Metamyelocytes % 4 %; Monocytes # (M) 0.49 k/uL (0-1.0); Myelocytes # (M) 0.05 k/uL (0); Myelocytes % 2 %; Neutrophils % (M) 60 %; Nucleated Red Blood Cells 0 /100 WBC (0-0); Polychromasia Present; Total Cells Counted 200; Toxic Granulation Present
--- NOTE | 2018-03-11 08:56 | P.PN ---
Subjective Progress Note Date: 03/10/18 Principal diagnosis: Fever 57-year-old female who has a known history of non-small cell lung carcinoma diagnosed in December 2017. She was found evidence of a large left hilar mass that invaded the mediastinum. Since that time she's been followed by oncology and receiving chemotherapy with [employer], [facility] and radiation therapy. She's time difficulties with swallowing related to her radiation and chemotherapy. She feels weak and ill. She's been having increasing difficulties at home partly because she is having such great difficulties eating. She is tolerating some liquids well. However cannot tolerate protein supplements and cannot tolerate cool solution to help her with her difficulties with swallowing. She relates that protein supplements in the cool solution cause her to have intense emesis and abdominal pain. She is referred with the dietitian to try to come up with further plans to help her improve her protein intake. The day of admission showed a temperature 103 and was feeling very poorly and constantly presented to Hospital from the oncologist office. Also find evidence of significant anemia and has received several units of packed red cells up till now. She had no bleeding and has significant chemotherapy- induced thrombocytopenia also. With her fever and leukopenia the infectious diseases consultation was requested. This evening she is feeling just slightly better. Still having great difficulties ingesting food. But fever has improved with hydration and antibiotic therapy. Other than difficulty swallowing she relates no other new acute changes. Her shortness of breath actually has improved from December she has chronic cough that is not worse and she has no hemoptysis or significant sputum production. She is oxygen dependent and is now at 3 L with her acute illness. 03/08/2018 finds the patient to be feeling somewhat better. She is relating that she's had improved ability to swallow. Her shortness of breath is about the same. She continues to have difficulty with tolerance of some food. Is more comfortable today but still feels short of breath. 03/09/2018 reveals the patient to have incremental improvements today. Her white blood cell count, hemoglobin and platelets of all improved and constantly she is feeling better. With Carafate and micafungin she's had further improvement of her ability to eat and swallow and is feeling better today. Overall pain and discomfort have improved. She will receive one of her last 2 radiation treatments today. 03/10/2018 further improved eating much better, no fevers, less discomfort and is now done with radiation. Objective - Vital Signs Vital signs: Vital Signs Temp 98.2 F 03/10/18 20:45 Pulse 100 03/11/18 07:25 Resp 18 03/10/18 20:45 BP 104/55 03/10/18 20:45 Pulse Ox 93 L 03/10/18 20:45 Intake & Output 03/10/18 03/11/18 03/11/18 18:59 06:59 18:59 Intake Total 250 Output Total 600 Balance -350 Weight 55.338 kg Intake: Oral 250 Output: Urine 600 Other: Voiding Method Toilet Toilet # Voids 2 3 - Exam 57-year-old woman who looks older than her stated age, she has evidence of alopecia from her chemotherapy and appears to be thin and chronically ill HEENT: Anicteric conjunctiva are pink no eye lesions are seen. No bleeding from the nasal cavity. No bleeding from the mouth. She complains of difficulty with swallowing and thrush at the oral cavity is not coated but may have some mild mucositis in the posterior aspect of the throat no ulcerations are seen Neck: The neck is supple without significant lymphadenopathy or thyromegaly. Lungs: Symmetrical air entry is noted there is expiratory wheezes that are scattered, no stiff M bronchial sounds are noted. Heart: Regular rate and rhythm with an audible S1-S2, no S3 no S4. There is no significant murmur click or rub, PMI was nondisplaced. Abdomen: Positive bowel sounds soft and nontender without palpable masses or organomegaly. There was no guarding or rebound. Extremities: The upper extremities have excellent pulses they are symmetric, no significant petechiae or telangiectasia. No splinter hemorrhages were noted. The lower extremities are free from significant edema. The peripheral pulses were 2+ and symmetric. Neuro: Awake alert oriented to person place and time. There are no acute new gross focal sensory motor deficits. - Labs CBC & Chem 7: 03/11/18 05:33 03/11/18 05:33 Labs: Abnormal Lab Results - Last 24 Hours (Table) 03/10/18 03/10/18 03/10/18 Range/Units 07:46 07:46 20:08 WBC (3.8-10.6) k/uL RBC (3.80-5.40) m/uL Hgb (11.4-16.0) gm/dL Hct (34.0-46.0) % RDW (11.5-15.5) % Plt Count (150-450) k/uL Neutrophils # (Manual) 1.20 L (1.3-7.7) k/uL Lymphocytes # (Manual) 0.19 L (1.0-4.8) k/uL Metamyelocytes # (Man) (0) k/uL Myelocytes # (Manual) 0.07 H (0) k/uL Sodium 132 L (137-145) mmol/L Potassium 2.8 L* 2.8 L* (3.5-5.1) mmol/L Chloride 93 L (98-107) mmol/L Creatinine 0.48 L (0.52-1.04) mg/dL Magnesium 1.3 L (1.6-2.3) mg/dL Total Protein 4.9 L (6.3-8.2) g/dL Albumin 2.8 L (3.5-5.0) g/dL 03/11/18 03/11/18 Range/Units 05:33 05:33 WBC 2.6 L (3.8-10.6) k/uL RBC 2.58 L (3.80-5.40) m/uL Hgb 7.4 L D (11.4-16.0) gm/dL Hct 21.5 L (34.0-46.0) % RDW 19.3 H (11.5-15.5) % Plt Count 46 L* (150-450) k/uL Neutrophils # (Manual) (1.3-7.7) k/uL Lymphocytes # (Manual) 0.34 L (1.0-4.8) k/uL Metamyelocytes # (Man) 0.10 H (0) k/uL Myelocytes # (Manual) 0.05 H (0) k/uL Sodium 134 L (137-145) mmol/L Potassium 3.2 L (3.5-5.1) mmol/L Chloride 97 L (98-107) mmol/L Creatinine 0.50 L (0.52-1.04) mg/dL Magnesium (1.6-2.3) mg/dL Total Protein (6.3-8.2) g/dL Albumin (3.5-5.0) g/dL Microbiology - Last 24 Hours (Table) 03/06/18 09:11 Blood Culture - Preliminary Blood No Growth after 96 hours Laboratory Results WBC 2.6 k/uL (3.8-10.6) L 03/11/18 05:33 RBC 2.58 m/uL (3.80-5.40) L 03/11/18 05:33 Hgb 7.4 gm/dL (11.4-16.0) L D 03/11/18 05:33 Hct 21.5 % (34.0-46.0) L 03/11/18 05:33 MCV 83.2 fL (80.0-100.0) 03/11/18 05:33 MCH 28.7 pg (25.0-35.0) 03/11/18 05:33 MCHC 34.5 g/dL (31.0-37.0) 03/11/18 05:33 RDW 19.3 % (11.5-15.5) H 03/11/18 05:33 Plt Count 46 k/uL (150-450) L* 03/11/18 05:33 Neutrophils % (Manual) 60 % 03/11/18 05:33 Band Neutrophils % 4 % 03/11/18 05:33 Lymphocytes % (Manual) 13 % 03/11/18 05:33 Monocytes % (Manual) 19 % 03/11/18 05:33 Eosinophils % (Manual) 1 % 03/11/18 05:33 Metamyelocytes % 4 % 03/11/18 05:33 Myelocytes % 2 % 03/11/18 05:33 Neutrophils # (Manual) 1.60 k/uL (1.3-7.7) 03/11/18 05:33 Lymphocytes # (Manual) 0.34 k/uL (1.0-4.8) L 03/11/18 05:33 Monocytes # (Manual) 0.49 k/uL (0-1.0) 03/11/18 05:33 Eosinophils # (Manual) 0.03 k/uL (0-0.7) 03/11/18 05:33 Metamyelocytes # (Man) 0.10 k/uL (0) H 03/11/18 05:33 Myelocytes # (Manual) 0.05 k/uL (0) H 03/11/18 05:33 Nucleated RBCs 0 /100 WBC (0-0) 03/11/18 05:33 Differential Comment 03/09/18 06:53 Manual Slide Review Performed 03/09/18 06:53 Toxic Granulation Present 03/11/18 05:33 Polychromasia Present 03/11/18 05:33 Hyperchromasia Slight 03/10/18 07:46 Poikilocytosis Slight 03/11/18 05:33 Anisocytosis Slight 03/11/18 05:33 Anisocytosis (manual) Present 03/10/18 07:46 Fragmented RBCs Present 03/10/18 07:46 PT 10.7 sec (9.0-12.0) 03/06/18 09:11 INR 1.1 (<1.2) 03/06/18 09:11 APTT 22.2 sec (22.0-30.0) 03/06/18 09:11 Sodium 134 mmol/L (137-145) L 03/11/18 05:33 Potassium 3.2 mmol/L (3.5-5.1) L 03/11/18 05:33 Chloride 97 mmol/L (98-107) L 03/11/18 05:33 Carbon Dioxide 30 mmol/L (22-30) 03/11/18 05:33 Anion Gap 7 mmol/L 03/11/18 05:33 BUN 9 mg/dL (7-17) 03/11/18 05:33 Creatinine 0.50 mg/dL (0.52-1.04) L 03/11/18 05:33 Est GFR (CKD-EPI)AfAm >90 (>60 ml/min/1.73 sqM) 03/11/18 05:33 Est GFR (CKD-EPI)NonAf >90 (>60 ml/min/1.73 sqM) 03/11/18 05:33 Glucose 93 mg/dL (74-99) 03/11/18 05:33 Lactic Ac Sepsis Rflx Y 03/06/18 09:41 Plasma Lactic Acid Amrit 1.4 mmol/L (0.7-2.0) 03/06/18 14:08 Calcium 8.4 mg/dL (8.4-10.2) 03/11/18 05:33 Magnesium 1.6 mg/dL (1.6-2.3) 03/11/18 05:33 Total Bilirubin 1.0 mg/dL (0.2-1.3) 03/10/18 07:46 AST 16 U/L (14-36) 03/10/18 07:46 ALT 21 U/L (9-52) 03/10/18 07:46 Alkaline Phosphatase 59 U/L (38-126) 03/10/18 07:46 Total Creatine Kinase 20 U/L (30-135) L 03/06/18 09:11 CK-MB (CK-2) 0.3 ng/mL (0.0-2.4) 03/06/18 09:11 CK-MB (CK-2) Rel Index 1.5 03/06/18 09:11 Troponin I <0.012 ng/mL (0.000-0.034) 03/06/18 09:11 NT-Pro-B Natriuret Pep 889 pg/mL 03/06/18 09:11 Total Protein 4.9 g/dL (6.3-8.2) L 03/10/18 07:46 Albumin 2.8 g/dL (3.5-5.0) L 03/10/18 07:46 Urine Color Yellow 03/06/18 19:30 Urine Appearance Clear (Clear) 03/06/18 19:30 Urine pH 5.5 (5.0-8.0) 03/06/18 19:30 Ur Specific [place] 1.018 (1.001-1.035) 03/06/18 19:30 Urine Protein 1+ (Negative) H 03/06/18 19:30 Urine Glucose (UA) Trace (Negative) H 03/06/18 19:30 Urine Ketones 2+ (Negative) H 03/06/18 19:30 Urine Blood Negative (Negative) 03/06/18 19:30 Urine Nitrite Negative (Negative) 03/06/18 19:30 Urine Bilirubin Negative (Negative) 03/06/18 19:30 Urine Urobilinogen <2.0 mg/dL (<2.0) 03/06/18 19:30 Ur Leukocyte Esterase Negative (Negative) 03/06/18 19:30 Urine RBC 3 /hpf (0-5) 03/06/18 19:30 Urine WBC 3 /hpf (0-5) 03/06/18 19:30 Ur Squamous Epith Cells 1 /hpf (0-4) 03/06/18 19:30 Urine Bacteria Occasional /hpf (None) H 03/06/18 19:30 Cellular Casts 3 /lpf (0) 03/06/18 19:30 Hyaline Casts 5 /lpf (0-2) H 03/06/18 19:30 Granular Casts 1 /lpf (0) 03/06/18 19:30 Urine Mucus Rare /hpf (None) H 03/06/18 19:30 Vancomycin Trough 13.3 ug/mL 03/11/18 05:33 Influenza Type A RNA Not Detected (Not Detectd) 03/06/18 09:50 Influenza Type B (PCR) Not Detected (Not Detectd) 03/06/18 09:50 Blood Type B Positive 03/06/18 10:20 Blood Type Confirm B Positive 03/06/18 09:11 Blood Type Recheck CABO Indicated 03/06/18 10:20 Antibody Screen NEGATIVE 03/06/18 10:20 Crossmatch See Detail 03/06/18 10:20 Spec Expiration Date 03/09/2018231903/06/18 10:20 Microbiology 03/06/18 09:11 Blood Blood Culture - Preliminary No Growth after 96 hours 03/06/18 19:30 Urine,Clean Catch Urine Culture - Final Assessment and Plan (1) Pancytopenia due to antineoplastic chemotherapy Current Visit: Yes Status: Acute Code(s): D61.810 - ANTINEOPLASTIC CHEMOTHERAPY INDUCED PANCYTOPENIA; T45.1X5A - ADVERSE EFFECT OF ANTINEOPLASTIC AND IMMUNOSUP DRUGS, INIT SNOMED Code(s): 666972147467258 (2) Fever Narrative/Plan: 57-year-old female with a diagnosis of non-small cell lung carcinoma from December 2017 receiving chemoradiation. His been having some increasing difficulties specifically with swallowing and eating and maintaining her calories. She is ongoing pain especially with swallowing and has not done well with cool solution or other maneuvers to try to help this till now. Protein supplements make her have nausea emesis and abdominal pain and is struggling with the dietitian to come up with a new solutions for supporting her calories. Possibly protein powder added to foods that she likes such as mass potatoes could help. We'll try some Carafate to see this cannot help with her significant soreness to her mouth and esophagus and overall not cause nausea or emesis For antibiotic therapy she is currently receiving vancomycin as well as cefepime which initiated the start of the consult. Cultures are processing negative so far. She significant neutropenia and is receiving growth factors per oncology. Blood transfusions have occurred for the significant anemia, no bleeding is noted and is being monitored for the needs for any platelets. Cultures will be monitored and further evaluations for any other source of infection. Given her significant symptoms will transition from fluconazole to micafungin to see if there can be any improvement for her oral and esophageal difficulties. Pulmonary critical care is following. No evidence of any beth pneumonia this point in time by her computed tomography scan. 03/08/2018 reveals the patient to have ongoing pancytopenia but she is more comfortable. With transfusion the hemoglobin is improved which has helped her feel less short of breath. Therapy has been started and appears to be showing some improvement of the severe discomfort she has when she swallowing. Micafungin also been utilized which may be helping if there was a secondary fungal process. Fever has improved today. Await response to her growth factors which will then likely allow rapid resolution of her current symptoms. 03/09/2018 reveals further improvement. Pancytopenia continues to improve no need for further transfusions today. With Carafate and micafungin she is having improvement of her ability to swallow which is helping her overall quality of life. She does remain on antibiotic therapy until she has resolution of her neutropenia. Once resolved will be able to complete course of therapy with oral agents. As noted is scheduled to receive one of her last 2 last radiation treatments today. 03/10/2018 patient further improve WBC now 1.7 and improving once oncology has cleared for discharge complete 7 days levaquin and fluconazole. Current Visit: Yes Status: Acute Code(s): R50.9 - FEVER, UNSPECIFIED SNOMED Code(s): 861365415 (3) Non-small cell carcinoma of lung Current Visit: Yes Status: Acute Code(s): C34.90 - MALIGNANT NEOPLASM OF UNSP PART OF UNSP BRONCHUS OR LUNG SNOMED Code(s): 748248195
[2018-03-11] MEDS: HYDROcodone/APAP 5-325MG 1 EACH TAB PO PRN ×2 (09:27→17:37)
[2018-03-11] MEDS: SUCRALFATE 1 GM TAB PO SCH ×4 (09:28→19:47)
[2018-03-11] MEDS: POTASSIUM CHLORIDE 10 MEQ in WATER FOR INJECTION 1 100ML.BAG IVPB SCH ×4 (09:28→23:07)
[2018-03-11] MEDS: FLUCONAZOLE 100 MG TAB PO SCH (09:29)
[2018-03-11] MEDS: PANTOPRAZOLE 40 MG/10 ML VIAL IVP SCH ×2 (09:29→19:46)
[2018-03-11] MEDS: DOCUSATE 100 MG CAP PO SCH ×2 (09:29→19:46)
[2018-03-11] MEDS: FILGRASTIM-SNDZ 300 MCG/0.5 ML SYRINGE SQ SCH (13:08)
[2018-03-11] MEDS: FERROUS SULFATE 325 MG TAB PO SCH (13:08)
[2018-03-11] MEDS: THIAMINE 100 MG TAB PO SCH (13:09)
--- NOTE | 2018-03-11 15:00 | P.PN ---
Subjective Progress Note Date: 03/11/18 This is a 57-year-old female, patient of Dr. Mota. She has a known past medical history of lung cancer that was just diagnosed December 2016. Patient has been on chemo and radiation treatment beginning in January. She finished chemotherapy about a week ago. She had radiation treatment scheduled for today. When she went into her appointment she was told that she wasn't looking well and to go to the emergency room. Patient reports feeling short of breath having occasional cough. On Tuesday she did have a fever of 103. But then the fever broke and on Tuesday her temp was around 99. On admission she's been afebrile. Her CBC shows a hemoglobin of 5.4 white count 0.1 platelets 14. She' s receiving 2 units of blood. And oncology has ordered zarxio for her neutropenia. Chest x-ray left upper lobe atelectasis. Urinalysis and blood culture are pending. Patient was started on cefepime and vancomycin in the emergency room. Oncology, infectious disease and pulmonary services have been consulted. Patient does admit to having some sinus congestion that started today. Denies any burning with urination denies any diarrhea. She does admit to having a couple episodes of vomiting one on Tuesday and then again on Tuesday. Denies any sick contacts. Potassium is low and she is receiving supplement in the ER. 03/07/2018 patient is complaining of discomfort with swallowing where she has her known esophageal radiation burn. Patient sitting up in bed. Reports some improvement in shortness of breath. Denies any chest pain. Denies any nausea or vomiting. Reports last bowel movement was a couple days ago. Denies any burning with urination. Reports improvement in her cough. She received 2 units of blood yesterday. Hemoglobin is up to 6.5. White count 0.2 platelets 17 On 03/08/2018 patient is complaining of pain and burning in the IV site she is also complaining of discomfort with swallowing where she has her known esophageal radiation burn. She reports some improvement in shortness of breath. Denies any chest pain. Denies any nausea or vomiting. No abdominal pain Reports last bowel movement was a couple days ago. Denies any burning with urination. Reports improvement in her cough. She received 2 units of blood on Tuesday. Hemoglobin is up to 7.6. White count 0.3 platelets 23 Objective - Vital Signs Vital signs: Vital Signs Temp 99.5 F 03/11/18 08:00 Pulse 100 03/11/18 11:19 Resp 17 03/11/18 08:00 BP 101/69 03/11/18 08:00 Pulse Ox 96 03/11/18 08:00 Intake & Output 03/10/18 03/11/18 03/11/18 18:59 06:59 18:59 Intake Total 250 650 Output Total 600 Balance -350 650 Weight 55.338 kg Intake: Intake, IV Titration 650 Amount Cefepime 2 gm In Sodium 50 Chloride 0.9% 50 ml @ 100 mls/hr IVPB Q8H RON Rx#: [id number] Potassium Chloride 20 meq 100 In Water For Injection 1 100ml.bag @ 50 mls/hr IVPB Q2H RON Rx#: [id number] Sodium Chloride 0.9% 1, 500 000 ml @ 50 mls/hr IV . Q20H RON Rx#:[id number] Oral 250 Output: Urine 600 Other: Voiding Method Toilet Toilet Toilet # Voids 2 3 - Exam Head normocephalic and atraumatic Neck supple no JVD no goiter no lymphadenopathy Lungs clear to auscultation bilaterally no wheezing or crackles Heart regular rate and rhythm S1-S2, no rub or gallop Abdomen is soft nontender nondistended positive bowel sounds no hepatosplenomegaly Extremities no edema no cyanosis or clubbing Neuro alert and orientated to 3 - Labs CBC & Chem 7: 03/11/18 05:33 03/11/18 05:33 Labs: Abnormal Lab Results - Last 24 Hours (Table) 03/10/18 03/11/18 03/11/18 Range/Units 20:08 05:33 05:33 WBC 2.6 L (3.8-10.6) k/uL RBC 2.58 L (3.80-5.40) m/uL Hgb 7.4 L D (11.4-16.0) gm/dL Hct 21.5 L (34.0-46.0) % RDW 19.3 H (11.5-15.5) % Plt Count 46 L* (150-450) k/uL Lymphocytes # (Manual) 0.34 L (1.0-4.8) k/uL Metamyelocytes # (Man) 0.10 H (0) k/uL Myelocytes # (Manual) 0.05 H (0) k/uL Sodium 134 L (137-145) mmol/L Potassium 2.8 L* 3.2 L (3.5-5.1) mmol/L Chloride 97 L (98-107) mmol/L Creatinine 0.50 L (0.52-1.04) mg/dL Microbiology - Last 24 Hours (Table) 03/06/18 09:11 Blood Culture - Preliminary Blood No Growth after 120 hours Assessment and Plan Plan: 1. Neutropenic sepsis: Patient currently on cefepime and vancomycin. Blood culture and urine culture are negative. Patient is followed by infectious disease. 2. Pancytopenia likely chemotherapy-induced: Oncology following. Patient has received blood transfusions during this admission. Pancytopenia shown improvement. And is also on filgrastim for her neutropenia. 3. Oral candidiasis: Patient not able to tolerate nystatin swish and swallow or cools solution. Continue with the Diflucan 100 mg daily 3. Dyspnea: Possibly related to her anemia and lung cancer. Chest x-ray showing evidence of atelectasis. Pulmonary service following 4. 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 Continue with IV fluid hydration normal saline at 50 mL an hour 5. History of non-small cell lung cancer diagnosed in December 2017: Patient is scheduled for radiation treatment today 6. Hypokalemia and hypomagnesemia: Patient is still requiring magnesium and potassium supplements. 7. History of COPD 8. Radiation burn of the esophagus: Patient complaining of abdominal discomfort after eating. We'll discontinue Pepcid and place her on Protonix 40 mg IV twice a day. Continue Zofran as needed. Continue with dietitian recommendations for diet 9. Severe protein calorie malnutrition: Continue with protein supplement 10. Constipation we'll start Colace 11. Hypotension: Did improve with the fluid bolus CODE STATUS addressed with patient she is requesting to be a no code
--- NOTE | 2018-03-11 15:03 | PN ---
PROGRESS NOTE DATE OF SERVICE: 03/11/2018. CHIEF COMPLAINT: Sore throat and fatigue. Reena seen today as a followup. She feels tired. She still has significant dysphagia from recent radiation therapy, but is slowly improving. She has some chills. No nausea or vomiting. She is constipated. No melena, hematochezia, hematuria or hemoptysis. CURRENT MEDICATION: Include Tylenol 650 mg every 6 hours as needed. Cool solution as needed, albuterol inhaler q.i.d., Symbicort twice a day, cefepime 2 g IV piggyback q.8 hours. Colace 100 mg b.i.d., vitamin D3 30147 unit weekly, ferrous sulfate 325 mg daily, Diflucan 100 mg p.o. daily, Randolph 5/325 mg every 6 hours as needed. Zofran 4 mg IV every 8 hours as needed, Protonix 40 mg IV b.i.d., Carafate 1 g q.h.s., vancomycin 1000 mg IV piggyback q.12 hours. PHYSICAL EXAMINATION: She is alert, oriented x3. She does not appear to be in distress. Her vital signs are temperature 99.5, and she has been afebrile. Pulse is 100, respiration 17, blood pressure 101/69. HEENT: Normocephalic, atraumatic. Oral mucosa are red. NECK: Supple. CHEST: Equal expansion bilaterally. LUNG: Revealed decreased breath sounds left base intermediate up with crackles noted. HEART: Regular. ABDOMEN: Soft. No obvious organomegaly or masses. EXTREMITIES: Revealed no significant edema. LABORATORY DATA: Total WBC of 2.6, hemoglobin 7.4, hematocrit 21.5, platelets are 46, absolute neutrophil count 1.6. Sodium 142, potassium 3.2, chloride 97, CO2 is 30, and BUN is 9, creatinine 0.5. Her blood cultures so far negative. IMPRESSION: 1. Locally advanced non-small cell lung carcinoma. The patient received concurrent chemoradiation therapy which just completed. 2. Chemotherapy-induced myelosuppression, which appeared to be improving. Her neutrophils have recovered. 3. Neutropenic fever. However, she has been afebrile so far and her cultures are negative. 4. Oral mucositis and esophagitis related to recent radiation therapy. RECOMMENDATION: 1. May discontinue granulocyte colony-stimulating factor. 2. Since she has been afebrile and her culture was negative, may discontinue vancomycin and continue with cefepime for now. 3. Monitor blood count and supportive transfusion with packed red blood cells as needed. 4. Continue local care and Diflucan for her oral mucositis and esophagitis. 5. Await patient full recovery and then will repeat imaging study to assess her response to her concurrent chemoradiation therapy and then may consider adjuvant immunotherapy which is durvalumab. MMODL / IJN: [id number] /
--- NOTE | 2018-03-11 16:32 | P.PN ---
Subjective Progress Note Date: 03/11/18 On 03/09/2018 the patient is being seen for a follow-up. 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 The patient has 2 more sessions of radiation therapy which will be completed over the next few days. Meanwhile, the patient came in for a neutropenic fever. She is currently afebrile. No source of infection has been identified. The patient's white cell count is gradually improving is currently is up to 0.7. She is doing well and she is covered with broad-spectrum antibiotics including antifungal agent with Diflucan knowing that she had difficulty with swallowing and some throat and posterior pharyngeal irritation and exudates. She is in better spirits today. Less tired and fatigued. No significant shortness of breath. No cough or sputum production. The plan is to monitor the counts as long as they're improving and the patient will have a session of radiation therapy today. Oncology is on the case. CAT scan of the chest showed atelectatic changes in the anterior segment of the left upper lobe. There are no new findings and the left suprahilar mass seems to be relatively unchanged, probably smaller compared to the previous CAT scan. No other new lesions or nodules noted. On 03/10/2089 seeing this patient for a follow-up. She is looking well. She has no specific complaints. She underwent a radiation session yesterday and she will have her final session done today. She is improving is otherwise a count is up to 1.7. She is ambulating. No nausea. No vomiting. No fever. Cultures of been all negative. Tolerating diet. No other significant events over the past 24 hours. Note that her hematologic profile is improving. Hemoglobin is improving. Platelet count is improving. Potassium level recently placed by potassium level from today is at 2.8. On 03/11/2018, patient has no specific complaints. Her white cell count continues to improve steadily and it's up to 2.7. No fever or chills. Still on same antibiotic coverage. Tolerating diet. Completed radiation therapy. Still on accommodation cefepime and vancomycin and oral Diflucan. The white cell count is up to 2.6. Platelet count is up to 46,000. Potassium level has been replaced is up to 3.2. Objective - Vital Signs Vital signs: Vital Signs Temp 98 F 03/11/18 14:18 Pulse 102 H 03/11/18 15:50 Resp 20 03/11/18 14:18 BP 101/61 03/11/18 14:18 Pulse Ox 97 03/11/18 15:39 Intake & Output 03/10/18 03/11/18 03/11/18 18:59 06:59 18:59 Intake Total 250 650 Output Total 600 Balance -350 650 Weight 55.338 kg Intake: Intake, IV Titration 650 Amount Cefepime 2 gm In Sodium 50 Chloride 0.9% 50 ml @ 100 mls/hr IVPB Q8H RON Rx#: [id number] Potassium Chloride 20 meq 100 In Water For Injection 1 100ml.bag @ 50 mls/hr IVPB Q2H RON Rx#: [id number] Sodium Chloride 0.9% 1, 500 000 ml @ 50 mls/hr IV . Q20H RON Rx#:[id number] Oral 250 Output: Urine 600 Other: Voiding Method Toilet Toilet Toilet # Voids 2 3 - Exam Gen. appearance the patient is pale, comfortable and she has lost significant amount of hair secondary to chemotherapy and she has alopecia.. Nonacute distress.Head exam was generally normal. There was no scleral icterus or corneal arcus. Mucous membranes were moist.Neck was supple and without jugular venous distension, thyromegaly, or carotid bruits. Carotids were easily palpable bilaterally. There was no adenopathy. Lung sounds are diminished in the left compared to the right. Scattered expiratory wheezes throughout the lung welch bilaterally.Abdominal exam revealed normal bowel sounds. The abdomen was soft, non-tender, and without masses, organomegaly, or appreciable enlargement of the abdominal aorta.Examination of the extremities revealed easily palpable radial, femoral and pedal pulses. There was no cyanosis, clubbing or edema.Examination of the skin revealed no evidence of significant rashes, suspicious appearing nevi or other concerning lesions. Neurologically awake and alert and there is no focal neurological deficit. - Labs CBC & Chem 7: 03/11/18 05:33 03/11/18 05:33 Labs: Abnormal Lab Results - Last 24 Hours (Table) 03/10/18 03/11/18 03/11/18 Range/Units 20:08 05:33 05:33 WBC 2.6 L (3.8-10.6) k/uL RBC 2.58 L (3.80-5.40) m/uL Hgb 7.4 L D (11.4-16.0) gm/dL Hct 21.5 L (34.0-46.0) % RDW 19.3 H (11.5-15.5) % Plt Count 46 L* (150-450) k/uL Lymphocytes # (Manual) 0.34 L (1.0-4.8) k/uL Metamyelocytes # (Man) 0.10 H (0) k/uL Myelocytes # (Manual) 0.05 H (0) k/uL Sodium 134 L (137-145) mmol/L Potassium 2.8 L* 3.2 L (3.5-5.1) mmol/L Chloride 97 L (98-107) mmol/L Creatinine 0.50 L (0.52-1.04) mg/dL Microbiology - Last 24 Hours (Table) 03/06/18 09:11 Blood Culture - Preliminary Blood No Growth after 120 hours Assessment and Plan Plan: Assessment 1 locally advanced squamous cell carcinoma of the lung, fairly large T3, 5 cm mass in the left hilum area causing collapse of the anterior segment of the left upper lobe. Superimposed pneumonia is likely. The patient is currently receiving chemoradiation therapy. She is about to complete the radiation therapy and the patient is on systemic chemotherapy and she presented to the hospital because of neutropenic fever and chemotherapy induced pancytopenia. On 03/10/2018 the patient is clinically improved. The patient's white cell count is up to 1.7. Hemoglobin is stable and the plated count is also improving. She is completing her radiation therapy. She is still on broad- spectrum antibiotics and the patient's cultures of been negative thus far. She is afebrile for now. On 03/11/2018, the patient continues to improve and her white cell count is up to 2.6. No fever. No hemodynamic instability. Patient is a broad-spectrum antibiotics and a combination of cefepime and vancomycin. The patient is also on oral Diflucan. 2 pancytopenia, chemo-induced, improving and her white cell count is up to 1.7 3 advanced COPD FEV1 of 40% of predicted 4 chronic hypoxic respiratory failure 5 lactic acidosis, mild 6 oropharyngeal candidiasis currently on Diflucan 7 profound weakness, improving, chemotherapy-induced Plan May discontinue antibiotics once the patient's absolute neutrophil count is above thousand. The patient is looking very well and the patient has no specific complaints. The patient is afebrile. Cultures of been all negative. We'll follow.
[2018-03-11] MEDS: SODIUM CHLORIDE 0.9% 1,000 ML IV SCH (17:38)
[2018-03-12] MEDS: CEFEPIME 2 GM in SODIUM CHLORIDE 0.9% 50 ML IVPB SCH ×2 (01:54→11:51)
[2018-03-12] MEDS: VANCOMYCIN 1,000 MG in SODIUM CHLORIDE 0.9% 250 ML IVPB SCH (05:31)
[2018-03-12 07:48] LABS: HGB 7.4 gm/dL (11.4-16.0); Hyperchromasia Slight; MCH 29.1 pg (25.0-35.0); MCHC 35.1 g/dL (31.0-37.0); Mean Platelet Volume 7.8; Platelet Count 54 k/uL (150-450); Poikilocytosis Slight; RBC 2.54 m/uL (3.80-5.40); RDW 14.7 % (11.5-15.5); WBC 4.1 k/uL (3.8-10.6)
[2018-03-12 08:15] LABS: ALT 20 U/L (9-52); AST 17 U/L (14-36); Albumin 2.6 g/dL (3.5-5.0); Alkaline Phosphatase 60 U/L (38-126); Anion Gap 9 mmol/L; Blood Urea Nitrogen 6 mg/dL (7-17); Calcium 8.5 mg/dL (8.4-10.2); Carbon Dioxide 30 mmol/L (22-30); Chloride 97 mmol/L (98-107); Glucose 83 mg/dL (74-99); Magnesium 1.2 mg/dL (1.6-2.3); Sodium 136 mmol/L (137-145); Total Bilirubin 0.6 mg/dL (0.2-1.3); Total Protein 4.7 g/dL (6.3-8.2)
[2018-03-12] MEDS: MAG HYDROX/AL HYDROX/SIMETH 30 ML, diphenhydrAMINE ELIXIR 75 MG, LIDOCAINE VISCOUS 30 ML PO SCH ×9 (08:31→22:07)
[2018-03-12 08:33] LABS: Band Neutrophils % 3 %; Lymphocytes # (M) 0.53 k/uL (1.0-4.8); Metamyelocytes # (M) 0.16 k/uL (0); Metamyelocytes % 4 %; Monocytes # (M) 0.66 k/uL (0-1.0); Myelocytes # (M) 0.04 k/uL (0); Myelocytes % 1 %; Neutrophils % (M) 66 %; Nucleated Red Blood Cells 0 /100 WBC (0-0); Polychromasia Present; Total Cells Counted 200
[2018-03-12] MEDS: IPRATROPIUM-ALBUTEROL 3 ML NEB INHALATION SCH ×4 (09:06→20:39)
[2018-03-12] MEDS: SYMBICORT 160-4.5 MCG INHALER INHALATION SCH ×2 (09:06→20:39)
[2018-03-12] MEDS: DOCUSATE 100 MG CAP PO SCH ×2 (09:26→21:53)
[2018-03-12] MEDS: SUCRALFATE 1 GM TAB PO SCH ×4 (09:26→21:52)
[2018-03-12] MEDS: FLUCONAZOLE 100 MG TAB PO SCH (09:27)
[2018-03-12] MEDS: PANTOPRAZOLE 40 MG/10 ML VIAL IVP SCH ×2 (09:27→21:53)
[2018-03-12] MEDS: HYDROcodone/APAP 5-325MG 1 EACH TAB PO PRN ×2 (09:33→22:02)
[2018-03-12] MEDS: POTASSIUM CHLORIDE 10 MEQ in WATER FOR INJECTION 1 100ML.BAG IVPB SCH ×4 (10:35→22:03)
[2018-03-12] MEDS ORDERED: ERGOCALCIFEROL 50,000 UNIT CAP PO SCH (12:00)
[2018-03-12] MEDS: THIAMINE 100 MG TAB PO SCH (12:31)
[2018-03-12] MEDS: FERROUS SULFATE 325 MG TAB PO SCH (12:31)
[2018-03-12] MEDS ORDERED: MORPHINE SULFATE 4 MG/0.8 ML SYRINGE (INJ) IVP PRN (13:38)
--- NOTE | 2018-03-12 14:02 | P.PN ---
Subjective Progress Note Date: 03/12/18 On 03/09/2018 the patient is being seen for a follow-up. 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 The patient has 2 more sessions of radiation therapy which will be completed over the next few days. Meanwhile, the patient came in for a neutropenic fever. She is currently afebrile. No source of infection has been identified. The patient's white cell count is gradually improving is currently is up to 0.7. She is doing well and she is covered with broad-spectrum antibiotics including antifungal agent with Diflucan knowing that she had difficulty with swallowing and some throat and posterior pharyngeal irritation and exudates. She is in better spirits today. Less tired and fatigued. No significant shortness of breath. No cough or sputum production. The plan is to monitor the counts as long as they're improving and the patient will have a session of radiation therapy today. Oncology is on the case. CAT scan of the chest showed atelectatic changes in the anterior segment of the left upper lobe. There are no new findings and the left suprahilar mass seems to be relatively unchanged, probably smaller compared to the previous CAT scan. No other new lesions or nodules noted. On 03/10/2089 seeing this patient for a follow-up. She is looking well. She has no specific complaints. She underwent a radiation session yesterday and she will have her final session done today. She is improving is otherwise a count is up to 1.7. She is ambulating. No nausea. No vomiting. No fever. Cultures of been all negative. Tolerating diet. No other significant events over the past 24 hours. Note that her hematologic profile is improving. Hemoglobin is improving. Platelet count is improving. Potassium level recently placed by potassium level from today is at 2.8. On 03/11/2018, patient has no specific complaints. Her white cell count continues to improve steadily and it's up to 2.7. No fever or chills. Still on same antibiotic coverage. Tolerating diet. Completed radiation therapy. Still on accommodation cefepime and vancomycin and oral Diflucan. The white cell count is up to 2.6. Platelet count is up to 46,000. Potassium level has been replaced is up to 3.2. On 03/10/2018, the patient has recovered from her pancytopenia slowly and her white cell count is normalized addition to further improvement in the platelet count. She remains anemic. Her potassium level remains low and the patient is replacing her potassium level on a periodic basis. Her antibiotics can be also discontinued as the patient is currently afebrile and all of the cultures have come back negative. She is ambulating. No nausea or vomiting. She is improved in terms of her swallow. No headaches. No altered mentation. No cough or sputum production. She is on normal saline today to 50 mL an hour. No other significant events over the past 24 hours. Objective - Vital Signs Vital signs: Vital Signs Temp 98.2 F 03/12/18 06:49 Pulse 106 H 03/12/18 12:52 Resp 16 03/12/18 06:49 BP 106/55 03/12/18 06:49 Pulse Ox 97 03/12/18 06:49 Intake & Output 03/11/18 03/12/18 03/12/18 18:59 06:59 18:59 Intake Total 650 400 Balance 650 400 Intake: IV 400 Sodium Chloride 0.9% 1, 400 000 ml @ 50 mls/hr IV . Q20H RON Rx#:[id number] Intake, IV Titration 650 Amount Cefepime 2 gm In Sodium 50 Chloride 0.9% 50 ml @ 100 mls/hr IVPB Q8H RON Rx#: [id number] Potassium Chloride 20 meq 100 In Water For Injection 1 100ml.bag @ 50 mls/hr IVPB Q2H RON Rx#: [id number] Sodium Chloride 0.9% 1, 500 000 ml @ 50 mls/hr IV . Q20H RON Rx#:[id number] Other: Voiding Method Toilet Toilet Toilet # Voids 2 - Exam Gen. appearance the patient is pale, comfortable and she has lost significant amount of hair secondary to chemotherapy and she has alopecia.. Nonacute distress.Head exam was generally normal. There was no scleral icterus or corneal arcus. Mucous membranes were moist.Neck was supple and without jugular venous distension, thyromegaly, or carotid bruits. Carotids were easily palpable bilaterally. There was no adenopathy. Lung sounds are diminished in the left compared to the right. Scattered expiratory wheezes throughout the lung welch bilaterally.Abdominal exam revealed normal bowel sounds. The abdomen was soft, non-tender, and without masses, organomegaly, or appreciable enlargement of the abdominal aorta.Examination of the extremities revealed easily palpable radial, femoral and pedal pulses. There was no cyanosis, clubbing or edema.Examination of the skin revealed no evidence of significant rashes, suspicious appearing nevi or other concerning lesions. Neurologically awake and alert and there is no focal neurological deficit. - Labs CBC & Chem 7: 03/12/18 06:51 03/12/18 06:51 Labs: Abnormal Lab Results - Last 24 Hours (Table) 03/11/18 03/12/18 03/12/18 Range/Units 19:22 06:51 06:51 RBC 2.54 L (3.80-5.40) m/uL Hgb 7.4 L (11.4-16.0) gm/dL Hct 21.0 L (34.0-46.0) % Plt Count 54 L (150-450) k/uL Lymphocytes # (Manual) 0.53 L (1.0-4.8) k/uL Metamyelocytes # (Man) 0.16 H (0) k/uL Myelocytes # (Manual) 0.04 H (0) k/uL Sodium 136 L (137-145) mmol/L Potassium 3.3 L 3.0 L* (3.5-5.1) mmol/L Chloride 97 L (98-107) mmol/L BUN 6 L (7-17) mg/dL Creatinine 0.45 L (0.52-1.04) mg/dL Magnesium 1.2 L (1.6-2.3) mg/dL Total Protein 4.7 L (6.3-8.2) g/dL Albumin 2.6 L (3.5-5.0) g/dL Microbiology - Last 24 Hours (Table) 03/06/18 09:11 Blood Culture - Final Blood No Growth after 144 hours Assessment and Plan Plan: Assessment 1 locally advanced squamous cell carcinoma of the lung, fairly large T3, 5 cm mass in the left hilum area causing collapse of the anterior segment of the left upper lobe. Superimposed pneumonia is likely. The patient is currently receiving chemoradiation therapy. She is about to complete the radiation therapy and the patient is on systemic chemotherapy and she presented to the hospital because of neutropenic fever and chemotherapy induced pancytopenia. On 03/10/2018 the patient is clinically improved. The patient's white cell count is up to 1.7. Hemoglobin is stable and the plated count is also improving. She is completing her radiation therapy. She is still on broad- spectrum antibiotics and the patient's cultures of been negative thus far. She is afebrile for now. On 03/11/2018, the patient continues to improve and her white cell count is up to 2.6. No fever. No hemodynamic instability. Patient is a broad-spectrum antibiotics and a combination of cefepime and vancomycin. The patient is also on oral Diflucan. On 03/12/2018, the patient has recovered from her leukopenia and she is afebrile and hemodynamically stable. 2 pancytopenia, chemo-induced, improving and her white cell count is up to 4.1 3 advanced COPD FEV1 of 40% of predicted 4 chronic hypoxic respiratory failure, currently inactive in stable 5 lactic acidosis, mild 6 oropharyngeal candidiasis currently on Diflucan 7 profound weakness, improving, chemotherapy-induced Plan Stop all antibiotics with exception of Diflucan. Replace potassium. Ambulate in the hallway. Monitor fever pattern. Possible discharge home in a.m. Further discussion needs to be done with oncology regarding her treatment course. The patient completed the radiation therapy. She will need further systemic treatment. One concern is the neutropenic fever that she had a treatment regimen may need to be altered in the future. Her oncologist Dr. Nava.
--- NOTE | 2018-03-12 15:21 | P.PN ---
Subjective Progress Note Date: 03/12/18 This is a 57-year-old female, patient of Dr. Mota. She has a known past medical history of lung cancer that was just diagnosed December 2016. Patient has been on chemo and radiation treatment beginning in January. She finished chemotherapy about a week ago. She had radiation treatment scheduled for today. When she went into her appointment she was told that she wasn't looking well and to go to the emergency room. Patient reports feeling short of breath having occasional cough. On Tuesday she did have a fever of 103. But then the fever broke and on Tuesday her temp was around 99. On admission she's been afebrile. Her CBC shows a hemoglobin of 5.4 white count 0.1 platelets 14. She' s receiving 2 units of blood. And oncology has ordered zarxio for her neutropenia. Chest x-ray left upper lobe atelectasis. Urinalysis and blood culture are pending. Patient was started on cefepime and vancomycin in the emergency room. Oncology, infectious disease and pulmonary services have been consulted. Patient does admit to having some sinus congestion that started today. Denies any burning with urination denies any diarrhea. She does admit to having a couple episodes of vomiting one on Tuesday and then again on Tuesday. Denies any sick contacts. Potassium is low and she is receiving supplement in the ER. 03/07/2018 patient is complaining of discomfort with swallowing where she has her known esophageal radiation burn. Patient sitting up in bed. Reports some improvement in shortness of breath. Denies any chest pain. Denies any nausea or vomiting. Reports last bowel movement was a couple days ago. Denies any burning with urination. Reports improvement in her cough. She received 2 units of blood yesterday. Hemoglobin is up to 6.5. White count 0.2 platelets 17 On 03/08/2018 patient is complaining of pain and burning in the IV site she is also complaining of discomfort with swallowing where she has her known esophageal radiation burn. She reports some improvement in shortness of breath. Denies any chest pain. Denies any nausea or vomiting. No abdominal pain Reports last bowel movement was a couple days ago. Denies any burning with urination. Reports improvement in her cough. She received 2 units of blood on Tuesday. Hemoglobin is up to 7.6. White count 0.3 platelets 23 On 03/12/2018 patient is complaining of pain and burning in the IV site she is also complaining of discomfort with swallowing where she has her known esophageal radiation burn. She reports some improvement in shortness of breath. Denies any chest pain. Denies any nausea or vomiting. No abdominal pain Reports last bowel movement was a couple days ago. Denies any burning with urination. Reports improvement in her cough. She received 2 units of blood on Tuesday. Hemoglobin is up to 7.4. White count 4.1 platelets 54 Objective - Vital Signs Vital signs: Vital Signs Temp 97.9 F 03/12/18 15:00 Pulse 99 03/12/18 15:00 Resp 18 03/12/18 15:00 BP 126/61 03/12/18 15:00 Pulse Ox 97 03/12/18 15:00 Intake & Output 03/11/18 03/12/18 03/12/18 18:59 06:59 18:59 Intake Total 650 400 600 Balance 650 400 600 Intake: IV 400 400 Sodium Chloride 0.9% 1, 400 400 000 ml @ 50 mls/hr IV . Q20H RON Rx#:[id number] Intake, IV Titration 650 200 Amount Cefepime 2 gm In Sodium 50 Chloride 0.9% 50 ml @ 100 mls/hr IVPB Q8H RON Rx#: [id number] Potassium Chloride 10 meq 100 In Water For Injection 1 100ml.bag @ 100 mls/hr IVPB Q1H RON Rx#: [id number] Potassium Chloride 10 meq 100 In Water For Injection 1 100ml.bag @ 100 mls/hr IVPB Q1H RON Rx#: [id number] Potassium Chloride 20 meq 100 In Water For Injection 1 100ml.bag @ 50 mls/hr IVPB Q2H RON Rx#: [id number] Sodium Chloride 0.9% 1, 500 000 ml @ 50 mls/hr IV . Q20H RON Rx#:[id number] Other: Voiding Method Toilet Toilet Toilet # Voids 2 - Exam Head normocephalic and atraumatic Neck supple no JVD no goiter no lymphadenopathy Lungs clear to auscultation bilaterally no wheezing or crackles Heart regular rate and rhythm S1-S2, no rub or gallop Abdomen is soft nontender nondistended positive bowel sounds no hepatosplenomegaly Extremities no edema no cyanosis or clubbing Neuro alert and orientated to 3 - Labs CBC & Chem 7: 03/12/18 06:51 03/12/18 06:51 Labs: Abnormal Lab Results - Last 24 Hours (Table) 03/11/18 03/12/18 03/12/18 Range/Units 19:22 06:51 06:51 RBC 2.54 L (3.80-5.40) m/uL Hgb 7.4 L (11.4-16.0) gm/dL Hct 21.0 L (34.0-46.0) % Plt Count 54 L (150-450) k/uL Lymphocytes # (Manual) 0.53 L (1.0-4.8) k/uL Metamyelocytes # (Man) 0.16 H (0) k/uL Myelocytes # (Manual) 0.04 H (0) k/uL Sodium 136 L (137-145) mmol/L Potassium 3.3 L 3.0 L* (3.5-5.1) mmol/L Chloride 97 L (98-107) mmol/L BUN 6 L (7-17) mg/dL Creatinine 0.45 L (0.52-1.04) mg/dL Magnesium 1.2 L (1.6-2.3) mg/dL Total Protein 4.7 L (6.3-8.2) g/dL Albumin 2.6 L (3.5-5.0) g/dL Microbiology - Last 24 Hours (Table) 03/06/18 09:11 Blood Culture - Final Blood No Growth after 144 hours Assessment and Plan Plan: 1. Neutropenic sepsis: Patient currently on cefepime and vancomycin. Blood culture and urine culture are negative. Patient is followed by infectious disease. 2. Pancytopenia likely chemotherapy-induced: Oncology following. Patient has received blood transfusions during this admission. Pancytopenia shown improvement. And is also on filgrastim for her neutropenia. 3. Oral candidiasis: Patient not able to tolerate nystatin swish and swallow or cools solution. Continue with the Diflucan 100 mg daily 3. Dyspnea: Possibly related to her anemia and lung cancer. Chest x-ray showing evidence of atelectasis. Pulmonary service following 4. 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 Continue with IV fluid hydration normal saline at 50 mL an hour 5. History of non-small cell lung cancer diagnosed in December 2017: Patient is scheduled for radiation treatment today 6. Hypokalemia and hypomagnesemia: Patient is still requiring magnesium and potassium supplements. 7. History of COPD 8. Radiation burn of the esophagus: Patient complaining of abdominal discomfort after eating. We'll discontinue Pepcid and place her on Protonix 40 mg IV twice a day. Continue Zofran as needed. Continue with dietitian recommendations for diet 9. Severe protein calorie malnutrition: Continue with protein supplement 10. Constipation we'll start Colace 11. Hypotension: Did improve with the fluid bolus CODE STATUS addressed with patient she is requesting to be a no code
[2018-03-13] MEDS: POTASSIUM CHLORIDE 10 MEQ in WATER FOR INJECTION 1 100ML.BAG IVPB SCH ×4 (02:44→12:04)
[2018-03-13] MEDS: SODIUM CHLORIDE 0.9% 1,000 ML IV SCH ×3 (07:25→12:09)
[2018-03-13 07:29] LABS: HCT 23.5 % (34.0-46.0); HGB 8.1 gm/dL (11.4-16.0); Hyperchromasia Slight; MCH 28.8 pg (25.0-35.0); MCHC 34.7 g/dL (31.0-37.0); MCV 82.9 fL (80.0-100.0); Mean Platelet Volume 8.9; Poikilocytosis Slight; RBC 2.83 m/uL (3.80-5.40); RDW 15.1 % (11.5-15.5); WBC 5.4 k/uL (3.8-10.6)
[2018-03-13 07:31] LABS: ALT 26 U/L (9-52); AST 22 U/L (14-36); Alkaline Phosphatase 73 U/L (38-126); Anion Gap 11 mmol/L; Blood Urea Nitrogen 6 mg/dL (7-17); Calcium 8.6 mg/dL (8.4-10.2); Carbon Dioxide 29 mmol/L (22-30); Chloride 97 mmol/L (98-107); Glucose 81 mg/dL (74-99); Magnesium 1.2 mg/dL (1.6-2.3); Platelet Count 78 k/uL (150-450); Potassium 3.4 mmol/L (3.5-5.1); Sodium 137 mmol/L (137-145); Total Bilirubin 0.6 mg/dL (0.2-1.3); Total Protein 5.2 g/dL (6.3-8.2)
[2018-03-13] MEDS: SUCRALFATE 1 GM TAB PO SCH ×3 (07:35→17:47)
[2018-03-13] MEDS: DOCUSATE 100 MG CAP PO SCH (07:36)
[2018-03-13] MEDS: PANTOPRAZOLE 40 MG/10 ML VIAL IVP SCH (07:36)
[2018-03-13] MEDS: MAG HYDROX/AL HYDROX/SIMETH 30 ML, diphenhydrAMINE ELIXIR 75 MG, LIDOCAINE VISCOUS 30 ML PO SCH ×6 (07:37→17:16)
[2018-03-13] MEDS: SYMBICORT 160-4.5 MCG INHALER INHALATION SCH ×2 (08:22→19:00)
[2018-03-13] MEDS: IPRATROPIUM-ALBUTEROL 3 ML NEB INHALATION SCH ×3 (08:22→15:35)
[2018-03-13] MEDS ORDERED: FLUCONAZOLE 100 MG TAB PO SCH (09:00)
--- NOTE | 2018-03-13 10:14 | P.PN ---
Subjective Progress Note Date: 03/13/18 Principal diagnosis: Pancytopenia secondary to chemo, dehydration secondary radiation esophagitis Pt seen in follow up. She still has some odynaphagia, epigastric area, improving slowly, better with carafate, thrush is cleared up, no fevers, cough, SOB, nausea, appetite is fair, no diarrhea, constipation, she is using a wheeled walker but states she can walk independently, no swelling or pain. Objective - Vital Signs Vital signs: Vital Signs Temp 98.4 F 03/13/18 07:42 Pulse 108 H 03/13/18 08:32 Resp 18 03/13/18 07:42 BP 117/59 03/13/18 07:42 Pulse Ox 100 03/13/18 07:42 Intake & Output 03/12/18 03/13/18 03/13/18 18:59 06:59 18:59 Intake Total 600 Balance 600 Intake: IV 400 Sodium Chloride 0.9% 1, 400 000 ml @ 50 mls/hr IV . Q20H RON Rx#:[id number] Intake, IV Titration 200 Amount Potassium Chloride 10 meq 100 In Water For Injection 1 100ml.bag @ 100 mls/hr IVPB Q1H RON Rx#: [id number] Potassium Chloride 10 meq 100 In Water For Injection 1 100ml.bag @ 100 mls/hr IVPB Q1H RON Rx#: [id number] Other: Voiding Method Toilet Toilet Toilet # Voids 1 - Constitutional General appearance: Present: average body habitus, cooperative, no acute distress - EENT Eyes: Present: anicteric sclerae, PERRLA ENT: Present: normal oropharynx - Respiratory Respiratory: right: diminished (lower lobes), left: other (harsh air entry), bilateral: CTA - Cardiovascular Rhythm: regular Heart sounds: normal: S1, S2 Abnormal Heart Sounds: Absent: systolic murmur, diastolic murmur, rub, S3 Gallop , S4 Gallop, click, other - Gastrointestinal General gastrointestinal: Present: normal bowel sounds, soft - Integumentary Integumentary: Present: pale - Neurologic Neurologic: Present: CNII-XII intact - Musculoskeletal Musculoskeletal: Present: strength equal bilaterally - Psychiatric Psychiatric: Present: A&O x's 3, appropriate affect, intact judgment & insight - Labs CBC & Chem 7: 03/13/18 06:55 03/13/18 06:55 Labs: Abnormal Lab Results - Last 24 Hours (Table) 03/12/18 03/13/18 03/13/18 Range/Units 15:30 01:16 06:55 RBC (3.80-5.40) m/uL Hgb (11.4-16.0) gm/dL Hct (34.0-46.0) % Potassium 3.0 L* 3.1 L 3.4 L (3.5-5.1) mmol/L Chloride 97 L (98-107) mmol/L BUN 6 L (7-17) mg/dL Creatinine 0.45 L (0.52-1.04) mg/dL Magnesium 1.2 L (1.6-2.3) mg/dL Total Protein 5.2 L (6.3-8.2) g/dL Albumin 3.0 L (3.5-5.0) g/dL 03/13/18 Range/Units 06:55 RBC 2.83 L (3.80-5.40) m/uL Hgb 8.1 L (11.4-16.0) gm/dL Hct 23.5 L (34.0-46.0) % Potassium (3.5-5.1) mmol/L Chloride (98-107) mmol/L BUN (7-17) mg/dL Creatinine (0.52-1.04) mg/dL Magnesium (1.6-2.3) mg/dL Total Protein (6.3-8.2) g/dL Albumin (3.5-5.0) g/dL Microbiology - Last 24 Hours (Table) 03/06/18 09:11 Blood Culture - Final Blood No Growth after 144 hours Assessment and Plan (1) Cancer of upper lobe of left lung Current Visit: Yes Status: Acute Code(s): C34.12 - MALIGNANT NEOPLASM OF UPPER LOBE, LEFT BRONCHUS OR LUNG SNOMED Code(s): 549864213 (2) Neutropenia Narrative/Plan: Secondary to chemotherapy and radiation, GCSF administered. WBC/ANC recovered Current Visit: Yes Status: Resolved Code(s): D70.9 - NEUTROPENIA, UNSPECIFIED SNOMED Code(s): 960311582 (3) Pancytopenia due to antineoplastic chemotherapy Narrative/Plan: Pt did receive 3 units PRBCs, Hgb stable Platelets recovering spontaneously WBC/ANC recovery with GCSF No intervention today Current Visit: Yes Status: Acute Priority: Medium Code(s): D61.810 - ANTINEOPLASTIC CHEMOTHERAPY INDUCED PANCYTOPENIA; T45.1X5A - ADVERSE EFFECT OF ANTINEOPLASTIC AND IMMUNOSUP DRUGS, INIT SNOMED Code(s): 301744932045970 (4) Radiation-induced esophagitis Narrative/Plan: Improving slowly, pt is 2 weeks out from completing treatment. Agree with continuing carafate Current Visit: Yes Status: Acute Priority: Medium Code(s): K20.8 - OTHER ESOPHAGITIS SNOMED Code(s): 266220716 Plan: F/U appt with Dr. Nava scheduled Maintenance treatment with durvalumab will be initiated after washout/recovery from definitive chemo/radiation.
[2018-03-13 10:34] LABS: Band Neutrophils % 8 %; Lymphocytes # (M) 0.59 k/uL (1.0-4.8); Metamyelocytes # (M) 0.49 k/uL (0); Metamyelocytes % 9 %; Monocytes # (M) 0.54 k/uL (0-1.0); Myelocytes # (M) 0.38 k/uL (0); Myelocytes % 7 %; Neutrophils % (M) 56 %; Nucleated Red Blood Cells 0 /100 WBC (0-0); Total Cells Counted 200
[2018-03-13] MEDS ORDERED: MORPHINE ORAL SOLN 10 MG/5 ML CUP PO PRN (11:14)
[2018-03-13] MEDS: THIAMINE 100 MG TAB PO SCH (12:02)
[2018-03-13] MEDS: FERROUS SULFATE 325 MG TAB PO SCH (12:02)
--- NOTE | 2018-03-13 13:52 | P.PN ---
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 Patient was started on definitive chemoradiation with [employer] 16 and cisplatin as a chemotherapy arm, she completed her radiation on 03/05/2018. He presented with increasing shortness of breath and weakness over the course of 4- 5 days, fevers up to 103F at home, difficulty in swallowing, and decreased oral intake. Patient was found to have marked pancytopenia with hemoglobin of 5.4, WBC of 0.1, and platelets of 14. Patient was hypoxemic, tachypneic and tachycardic. She was started on broad-spectrum abiotics, he was transfused with 2 units of PRBCs yesterday on 03/06/2018, however on today's blood work patient's hemoglobin only came up to 6.5, hence patient is receiving another unit of packed red blood cells. Patient was started on filgrastim for severe neutropenia. Blood and urine cultures remain negative so far. Currently on 3 L per nasal cannula with O2 sat 98%. Less tachycardic today, with a heart rate between 98-101 BPM. Afebrile. Her respirations are even and nonlabored. No dynamically stable. Louise today we started the patient on oral Diflucan, and Yogesh solution for radiation esophagitis, patient was unable to tolerate the Yogesh solution. Lung sounds are diminished over left upper lobe, clear on the right. Follow-up CT chest was reviewed, and showed improvement in the appearance of the known non-small cell lung cancer, which appears less conspicuous on the prior exam, but visually there is response to treatment. Additionally the hypermetabolic precarinal lymph nodes seen on the prior CT has decreased in size and is now nonenlarged by criteria. There is a new small left pleural effusion. The known hypermetabolic activity within the paraspinal musculature on the prior PET/CT demonstrates no measurable mass on today's CT and again MR could be considered for further evaluation. There is moderate central lobar emphysema seen on today's CT of the chest. Patient is on empiric antibiotic coverage with cefepime and vancomycin. She has been adequately fluid resuscitated, with 2 L of IV 0.9 normal saline and her maintenance IV fluids are infusing at a rate of 50 ML per hour. She is on nebulized bronchodilators, and Symbicort. Overall feeling better today. On 03/08/2018 patient seen in follow-up on oncology floor. Feeling better, less weak and tired, denies any dyspnea, denies any chest pain. Is mildly short of breath with exertion, but no acute respiratory distress noted. Less tachycardic, with a heart rate in the 80s, afebrile, vital signs are stable, on 2 L per nasal cannula her O2 sat at 96%. Blood and urine cultures show no growth to date. Today's blood work shows WBC of 0.3, hemoglobin is 7.6, patient is status post transfusion of 3 units of packed red blood cells, sodium is 135, potassium is 2.7, BUN is improving, and is down to 12 from 23, creatinine is 0.50. Asthma lactic acid was 1.4, patient did receive fluid resuscitation in the initial stages of neutropenic sepsis on admission. Serum magnesium is 1.4, and the patient is receiving potassium and magnesium supplementation. Her oral intake remains poor, she still has the dysphagia related to radiation esophagitis, however she reports it is improving and it is less painful to swallow. Fluids and screen was negative. Patient is being treated with cefepime and vancomycin for neutropenic sepsis, and the source of her sepsis has not been identified so far. No evidence of any beth pneumonia based on the computed tomography scan, there is a new small left pleural effusion, and the appearance of the known non-small cell lung cancer appeared to be less conspicuous on this CT chest compared to prior studies, there appears to be response to chemoradiation, and the hypermetabolic precarinal lymph nodes appear to have decreased in size response to treatment. On 03/09/2018 the patient is being seen for a follow-up. 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 The patient has 2 more sessions of radiation therapy which will be completed over the next few days. Meanwhile, the patient came in for a neutropenic fever. She is currently afebrile. No source of infection has been identified. The patient's white cell count is gradually improving is currently is up to 0.7. She is doing well and she is covered with broad-spectrum antibiotics including antifungal agent with Diflucan knowing that she had difficulty with swallowing and some throat and posterior pharyngeal irritation and exudates. She is in better spirits today. Less tired and fatigued. No significant shortness of breath. No cough or sputum production. The plan is to monitor the counts as long as they're improving and the patient will have a session of radiation therapy today. Oncology is on the case. CAT scan of the chest showed atelectatic changes in the anterior segment of the left upper lobe. There are no new findings and the left suprahilar mass seems to be relatively unchanged, probably smaller compared to the previous CAT scan. No other new lesions or nodules noted. On 03/10/2089 seeing this patient for a follow-up. She is looking well. She has no specific complaints. She underwent a radiation session yesterday and she will have her final session done today. She is improving is otherwise a count is up to 1.7. She is ambulating. No nausea. No vomiting. No fever. Cultures of been all negative. Tolerating diet. No other significant events over the past 24 hours. Note that her hematologic profile is improving. Hemoglobin is improving. Platelet count is improving. Potassium level recently placed by potassium level from today is at 2.8. On 03/11/2018, patient has no specific complaints. Her white cell count continues to improve steadily and it's up to 2.7. No fever or chills. Still on same antibiotic coverage. Tolerating diet. Completed radiation therapy. Still on accommodation cefepime and vancomycin and oral Diflucan. The white cell count is up to 2.6. Platelet count is up to 46,000. Potassium level has been replaced is up to 3.2. On 03/12/2018, the patient has recovered from her pancytopenia slowly and her white cell count is normalized addition to further improvement in the platelet count. She remains anemic. Her potassium level remains low and the patient is replacing her potassium level on a periodic basis. Her antibiotics can be also discontinued as the patient is currently afebrile and all of the cultures have come back negative. She is ambulating. No nausea or vomiting. She is improved in terms of her swallow. No headaches. No altered mentation. No cough or sputum production. She is on normal saline today to 50 mL an hour. No other significant events over the past 24 hours. On 03/13/2018 patient seen in follow-up in oncology floor. Denies any fever or chills, denies any worsening dyspnea, she is improving. Has been afebrile, vital signs are stable, currently on 3 L per nasal cannula with O2 sat 95%. Lung sounds are clear over right lung, diminished lung sounds over left upper lobe. Microbiology has been negative, the patient's antibiotic has been discontinued. Today's lab work shows of ECF 5.4, hemoglobin of 8.1, patient is status post transfusion of 3 units of packed red blood cells this admission. Her potassium is 3.4, and patient's potassium has been replaced every day, BUN is 6, creatinine 0.45. Ration continues on Diflucan or her oropharyngeal, continues on nebulized treatments and Symbicort. No acute events overnight, patient is stable. She is receiving her radiation treatments while inpatient for her small cell lung carcinoma, and is tolerating treatment well. Objective - Vital Signs Vital signs: Vital Signs Temp 98.4 F 03/13/18 07:42 Pulse 101 H 03/13/18 12:20 Resp 16 03/13/18 12:20 BP 117/59 03/13/18 07:42 Pulse Ox 95 03/13/18 12:09 Intake & Output 03/12/18 03/13/18 03/13/18 18:59 06:59 18:59 Intake Total 600 Balance 600 Weight 55.338 kg Intake: IV 400 Sodium Chloride 0.9% 1, 400 000 ml @ 50 mls/hr IV . Q20H RON Rx#:[id number] Intake, IV Titration 200 Amount Potassium Chloride 10 meq 100 In Water For Injection 1 100ml.bag @ 100 mls/hr IVPB Q1H RON Rx#: [id number] Potassium Chloride 10 meq 100 In Water For Injection 1 100ml.bag @ 100 mls/hr IVPB Q1H RON Rx#: [id number] Other: Voiding Method Toilet Toilet Toilet # Voids 1 3 - Exam GENERAL EXAM: Alert, pleasant, ill-looking 57-year-old pale white female comfortable in no apparent distress. HEAD: Normocephalic/atraumatic. EYES: Normal reaction of pupils, equal size. Conjunctiva pink, sclera white. NOSE: Clear with pink turbinates. THROAT: No erythema or exudates. NECK: No masses, no JVD, no thyroid enlargement, no adenopathy. CHEST: No chest wall deformity. Symmetrical expansion. LUNGS: Equal air entry diminished lung sounds over left upper lobe, clear on the right, no wheezes, no rhonchi noted CVS: Regular rate and rhythm, normal S1 and S2, no gallops, no murmurs, no rubs ABDOMEN: Soft, nontender. No hepatosplenomegaly, normal bowel sounds, no guarding or rigidity. EXTREMITIES: No clubbing, no edema, no cyanosis, 2+ pulses and upper and lower extremities. MUSCULOSKELETAL: Muscle strength and tone normal. SPINE: No scoliosis or deformity SKIN: No rashes CENTRAL NERVOUS SYSTEM: Alert and oriented -3. No focal deficits, tone is normal in all 4 extremities. PSYCHIATRIC: Alert and oriented -3. Appropriate affect. Intact judgment and insight. - Labs CBC & Chem 7: 03/13/18 06:55 03/13/18 06:55 Labs: Abnormal Lab Results - Last 24 Hours (Table) 03/12/18 03/13/18 03/13/18 Range/Units 15:30 01:16 06:55 RBC (3.80-5.40) m/uL Hgb (11.4-16.0) gm/dL Hct (34.0-46.0) % Plt Count (150-450) k/uL Lymphocytes # (Manual) (1.0-4.8) k/uL Metamyelocytes # (Man) (0) k/uL Myelocytes # (Manual) (0) k/uL Potassium 3.0 L* 3.1 L 3.4 L (3.5-5.1) mmol/L Chloride 97 L (98-107) mmol/L BUN 6 L (7-17) mg/dL Creatinine 0.45 L (0.52-1.04) mg/dL Magnesium 1.2 L (1.6-2.3) mg/dL Total Protein 5.2 L (6.3-8.2) g/dL Albumin 3.0 L (3.5-5.0) g/dL 03/13/18 Range/Units 06:55 RBC 2.83 L (3.80-5.40) m/uL Hgb 8.1 L (11.4-16.0) gm/dL Hct 23.5 L (34.0-46.0) % Plt Count 78 L (150-450) k/uL Lymphocytes # (Manual) 0.59 L (1.0-4.8) k/uL Metamyelocytes # (Man) 0.49 H (0) k/uL Myelocytes # (Manual) 0.38 H (0) k/uL Potassium (3.5-5.1) mmol/L Chloride (98-107) mmol/L BUN (7-17) mg/dL Creatinine (0.52-1.04) mg/dL Magnesium (1.6-2.3) mg/dL Total Protein (6.3-8.2) g/dL Albumin (3.5-5.0) g/dL Microbiology - Last 24 Hours (Table) 03/06/18 09:11 Blood Culture - Final Blood No Growth after 144 hours Assessment and Plan Plan: Assessment: #1. Acute neutropenic fever. Patient presented with weakness, fevers, chills. On admission to [facility] was 0.1, hemoglobin of 5.4, and platelets 14. Patient is currently undergoing chemoradiation for non-small cell lung carcinoma, locally advanced, T3, 5 cm mass in the left hilum area causing collapse of the anterior segment of the left upper lobe. Superimposed pneumonia is likely. She is about to complete the radiation therapy and the patient is on systemic chemotherapy #2. Lactic acidosis secondary to the above, patient has been fluid resuscitated and subsequent lactic acid came down to 1.4 #3. Pancytopenia, likely chemotherapy induced. Patient has been transfused with 3 units of PRBCs, for hemoglobin of 5.4 the patient was initiated on filgrastim #4. Dysphagia and odynophagia, secondary to radiation esophagitis #5. Dyspnea, possibly related to profound anemia, and a large left hilar mass invading mediastinum and pericardium #6. Oral candidiasis #7. Prerenal azotemia, secondary to dehydration and decreased oral intake, improved #8. hypokalemia, related to decreased oral intake, and the patient is being given oral potassium #9. History of COPD with chronic hypoxemic respiratory failure Plan: Patient's microbiology remains negative thus far, her antibiotics have been discontinued, patient is afebrile, continues to improve. She is receiving potassium replacements. Dietary is following, her oral pain is improving. He is less tired and fatigued. Increase activity as tolerated. From pulmonary standpoint she is stable for discharge home today. Follow-up with Dr. Sparks in the office in 7-10 days. I performed a history & physical examination of the patient and discussed their management with my nurse practitioner, Rupinder Rudd. I reviewed the nurse practitioner's note and agree with the documented findings and plan of care. Lung sounds are diminished over left upper lobe. The findings and the impression was discussed with the patient. I attest to the documentation by the nurse practitioner. Time with Patient: Less than 30
[2018-03-13 16:43] VITALS: BP 120/72; PULSE 115; RESP 18; TEMP 98.2
--- NOTE | 2018-03-13 17:20 | P.DS ---
Providers Date of admission: 03/06/18 10:44 Expected date of discharge: 03/13/18 Attending physician: Edmundo Field Consults: 03/06/18 10:45 Consult Physician Routine Consulting Provider: Hellen Nava Consult Reason/Comments: Pancytopenia Do you want consulting provider notified?: Yes 03/06/18 15:22 Consult Physician Routine Consulting Provider: Steve Mcallister Consult Reason/Comments: Possible neutropenic fever Do you want consulting provider notified?: Yes 03/06/18 15:23 Consult Physician Routine Consulting Provider: Carolyn Sparks Consult Reason/Comments: shortness of breath Do you want consulting provider notified?: Yes [facility] Course: Diagnosis on discharge: 1. Neutropenic sepsis: Patient currently on cefepime and vancomycin. Blood culture and urine culture are negative. Patient is followed by infectious disease. 2. Pancytopenia likely chemotherapy-induced: Oncology following. Patient has received blood transfusions during this admission. Pancytopenia shown improvement. And is also on filgrastim for her neutropenia. 3. Oral candidiasis: Patient not able to tolerate nystatin swish and swallow or cools solution. Continue with the Diflucan 100 mg daily 3. Dyspnea: Possibly related to her anemia and lung cancer. Chest x-ray showing evidence of atelectasis. Pulmonary service following 4. 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 Continue with IV fluid hydration normal saline at 50 mL an hour 5. History of non-small cell lung cancer diagnosed in December 2017: Patient is scheduled for radiation treatment today 6. Hypokalemia and hypomagnesemia: Patient is still requiring magnesium and potassium supplements. 7. History of COPD 8. Radiation burn of the esophagus: Patient complaining of abdominal discomfort after eating. We'll discontinue Pepcid and place her on Protonix 40 mg IV twice a day. Continue Zofran as needed. Continue with dietitian recommendations for diet 9. Severe protein calorie malnutrition: Continue with protein supplement 10. Constipation we'll start Colace 11. Hypotension: Did improve with the fluid bolus Hospital course: This is a 57-year-old female, patient of Dr. Mota. She has a known past medical history of lung cancer that was just diagnosed December 2016. Patient has been on chemo and radiation treatment beginning in January. She finished chemotherapy about a week ago. She had radiation treatment scheduled for today. When she went into her appointment she was told that she wasn't looking well and to go to the emergency room. Patient reports feeling short of breath having occasional cough. On Tuesday she did have a fever of 103. But then the fever broke and on Tuesday her temp was around 99. On admission she's been afebrile. Her CBC shows a hemoglobin of 5.4 white count 0.1 platelets 14. She' s receiving 2 units of blood. And oncology has ordered zarxio for her neutropenia. Chest x-ray left upper lobe atelectasis. Urinalysis and blood culture are pending. Patient was started on cefepime and vancomycin in the emergency room. Oncology, infectious disease and pulmonary services have been consulted. Patient does admit to having some sinus congestion that started today. Denies any burning with urination denies any diarrhea. She does admit to having a couple episodes of vomiting one on Tuesday and then again on Tuesday. Denies any sick contacts. Potassium is low and she is receiving supplement in the ER. 03/07/2018 patient is complaining of discomfort with swallowing where she has her known esophageal radiation burn. Patient sitting up in bed. Reports some improvement in shortness of breath. Denies any chest pain. Denies any nausea or vomiting. Reports last bowel movement was a couple days ago. Denies any burning with urination. Reports improvement in her cough. She received 2 units of blood yesterday. Hemoglobin is up to 6.5. White count 0.2 platelets 17 On 03/08/2018 patient is complaining of pain and burning in the IV site she is also complaining of discomfort with swallowing where she has her known esophageal radiation burn. She reports some improvement in shortness of breath. Denies any chest pain. Denies any nausea or vomiting. No abdominal pain Reports last bowel movement was a couple days ago. Denies any burning with urination. Reports improvement in her cough. She received 2 units of blood on Tuesday. Hemoglobin is up to 7.6. White count 0.3 platelets 23 03/09/2018 patient still complaining of difficulty with eating due to her esophageal radiation burn. She reports that she is eating small amounts of food. And when the food hits the stomach she is now having abdominal pain. She 's had some nausea. No vomiting. Still has oral thrush. Magnesium and potassium are still low and she is receiving supplement. Patient denies any chest pain or vomiting. She is stomach shortness of breath with activity or when she has a lot of pain. Her pain medication makes the pain tolerable. 03/10/2018 patient had radiation treatment today. Patient has some hypotension after the radiation treatment. She received fluid bolus. Blood pressure improving at 11/24/1964. Patient is asymptomatic. Denies any dizziness or lightheadedness. Patient denies any chest pain or shortness of breath. Reporting constipation. Colace will be started. Pancytopenia showing improvement On 03/12/2018 patient is complaining of pain and burning in the IV site she is also complaining of discomfort with swallowing where she has her known esophageal radiation burn. She reports some improvement in shortness of breath. Denies any chest pain. Denies any nausea or vomiting. No abdominal pain Reports last bowel movement was a couple days ago. Denies any burning with urination. Reports improvement in her cough. She received 2 units of blood on Tuesday. Hemoglobin is up to 7.4. White count 4.1 platelets 54 On 03/13/2018 patient is feeling better she is still complaining of difficulty swallowing her food with pain and burning while swallowing otherwise she denies any complaints there is no fever or chills no headache or dizziness no chest pain no shortness of breath no cough no vomiting no abdominal pain and no urinary symptoms. She was evaluated by pulmonary Dr. López and by oncology and was cleared for discharge Plan - Discharge Summary Discharge Rx Participant: No New Discharge Prescriptions: New Fluconazole 200 mg PO DAILY #7 tab Levofloxacin [Levaquin] 500 mg PO DAILY #7 tab Sucralfate [Carafate] 1 gm PO ACHS #120 tablet Docusate [Colace] 100 mg PO BID cap Lidocaine Viscous [Xylocaine Viscous 2%] 15 ml PO TID ml Mag Hydrox/Al Hydrox/Simeth [Maalox] 30 ml PO TID cup Potassium Chloride [K-Tab ER] 20 meq PO DAILY 30 Days #30 tablet.er Sucralfate [Carafate] 1 gm PO ACHS tab Continue Thiamine [Vitamin B-1] 50 mg PO DAILY Famotidine 20 mg PO DAILY Ergocalciferol (Vitamin D2) [Vitamin D2] 50,000 unit PO BLAKE Aspirin 81 mg PO DAILY Tiotropium [place] [Spiriva] 1 cap INHALATION RT-DAILY Fluticasone/Salmeterol [Advair 500-50 Diskus] 1 puff INHALATION RT-BID Ferrous Sulfate [Iron (65 MG Elemental)] 325 mg PO DAILY Albuterol Inhaler [Ventolin Hfa Inhaler] 1 - 2 puff INHALATION RT-QID PRN PRN Reason: Shortness Of Breath Albuterol Nebulized [Ventolin Nebulized] 2.5 mg INHALATION RT-QID PRN PRN Reason: Shortness Of Breath Discontinued Naproxen 500 mg PO DAILY PRN PRN Reason: Pain Discharge Medication List Aspirin 81 mg PO DAILY 01/20/18 [History] Ergocalciferol (Vitamin D2) [Vitamin D2] 50,000 unit PO BLAKE 01/20/18 [History] Famotidine 20 mg PO DAILY 01/20/18 [History] Thiamine [Vitamin B-1] 50 mg PO DAILY 01/20/18 [History] Albuterol Inhaler [Ventolin Hfa Inhaler] 1 - 2 puff INHALATION RT-QID PRN [History] Albuterol Nebulized [Ventolin Nebulized] 2.5 mg INHALATION RT-QID PRN 03/06/18 [ History] Ferrous Sulfate [Iron (65 MG Elemental)] 325 mg PO DAILY 03/06/18 [History] Fluticasone/Salmeterol [Advair 500-50 Diskus] 1 puff INHALATION RT-BID 03/06/18 [History] Tiotropium [place] [Spiriva] 1 cap INHALATION RT-DAILY 03/06/18 [History] Fluconazole 200 mg PO DAILY #7 tab 03/11/18 [Rx] Levofloxacin [Levaquin] 500 mg PO DAILY #7 tab 03/11/18 [Rx] Sucralfate [Carafate] 1 gm PO ACHS #120 tablet 03/11/18 [Rx] Docusate [Colace] 100 mg PO BID cap 03/13/18 [Rx] Lidocaine Viscous [Xylocaine Viscous 2%] 15 ml PO TID ml 03/13/18 [Rx] Mag Hydrox/Al Hydrox/Simeth [Maalox] 30 ml PO TID cup 03/13/18 [Rx] Potassium Chloride [K-Tab ER] 20 meq PO DAILY 30 Days #30 tablet.er 03/13/18 [Rx ] Sucralfate [Carafate] 1 gm PO ACHS tab 03/13/18 [Rx] Follow up Appointment(s)/Referral(s): Neva Mota MD [Primary Care Provider] - 1-2 days Hellen Nava MD [STAFF PHYSICIAN] - 03/20/18 9:15 am Patient Instructions/Handouts: Potassium Content of Foods List (DC), Hypokalemia (DC), Hypomagnesemia (DC)
== END 2018-03-13 18:35 | disposition home or self-care (01) | DRG 871 ==
LOC: EC 08:46 → 5MS5E 10:44 → 5ONC 17:22
PROVIDERS: ADMIT Internal Medicine; ATTEND Internal Medicine
PROC: 30233N1 Transfusion of Nonautologous Red Blood Cells into Peripheral Vein, Percutaneous Approach (ICD-10-PCS; principal; 2018-03-06)
PROC: DBY27ZZ Contact Radiation of Lung (ICD-10-PCS; 2018-03-07)
DX: A41.9 Sepsis, unspecified organism (principal); R65.21 Severe sepsis with septic shock; E43 Unspecified severe protein-calorie malnutrition; D61.810 Antineoplastic chemotherapy induced pancytopenia; B37.89 Other sites of candidiasis; J96.11 Chronic respiratory failure with hypoxia; E87.2 Acidosis; J18.9 Pneumonia, unspecified organism; B37.0 Candidal stomatitis; E87.1 Hypo-osmolality and hyponatremia; C34.10 Malignant neoplasm of upper lobe, unspecified bronchus or lung; J98.11 Atelectasis; T28.1XXA Burn of esophagus, initial encounter; E83.42 Hypomagnesemia; I95.9 Hypotension, unspecified; E86.0 Dehydration; E87.6 Hypokalemia; T45.1X5A Adverse effect of antineoplastic and immunosuppressive drugs, initial encounter; R50.81 Fever presenting with conditions classified elsewhere; K59.00 Constipation, unspecified; K12.30 Oral mucositis (ulcerative), unspecified; Y84.2 Radiological procedure and radiotherapy as the cause of abnormal reaction of the patient, or of later complication, without mention of misadventure at the time of the procedure; R13.10 Dysphagia, unspecified; J43.9 Emphysema, unspecified; K21.0 Gastro-esophageal reflux disease with esophagitis; Z68.20 Body mass index [BMI] 20.0-20.9, adult; Z92.21 Personal history of antineoplastic chemotherapy; Z92.3 Personal history of irradiation; Z79.899 Other long term (current) drug therapy; Z79.82 Long term (current) use of aspirin; Z87.891 Personal history of nicotine dependence; Z99.81 Dependence on supplemental oxygen
CPT/HCPCS: 36415; 71046; 71260; 80048; 80053; 80202; 81001; 82550; 82553; 83605; 83735; 83880; 84132; 84484; 85025; 85610; 85730; 86850; 86900; 86901; 86920; 87040; 87086; 87502; 93005; 94640; 94760

== ENCOUNTER → 2018-04-22 | Outpatient (CLI) | payer BC ==
--- NOTE | 2018-04-23 15:08 | PE ---
EXAMINATION TYPE: PET CT fusion skull to thigh DATE OF EXAM: 04/22/2018 COMPARISON: Prior PET/CT January 14, 2018. Prior chest CT March 07, 2018. HISTORY: Lung cancer progress study after left lung biopsy for diagnosis December 31, 2017 with sub sequent chemotherapy and radiation treatment that terminated February 27 and 2017 per patient. TECHNIQUE: Following the intravenous administration of 12.974 mCi of F-18 FDG, whole body images are performed from the skull base to the midthigh. Images are reviewed on the computer in the coronal, axial, and sagittal planes. Reconstructed rotating images are created on independent workstation and reviewed on the computer. A noncontrast CT is performed in conjunction with the PET scan. SCAN: Subsequent Scan FINDINGS: SKULL BASE AND NECK: There is persistent hypermetabolic deep inferior 8mm right parotid mass axial i mage 31 with max SUV of 9.27. CHEST, MEDIASTINUM, AND HILAR REGION: Corresponding to recent CT there is persistent a metabolic smal l left pleural effusion. There is background moderate emphysematous change redemonstrated. There is persistent masslike consolidation left hilar region with postobstructive atelectasis involvi ng anterior portions of the left upper to midlung. There is marked interval improvement in size witho ut abnormal hypermetabolic uptake at this level identified on current study. There is persistent single focus of abnormal hypermetabolic uptake subcarinal/paraesophageal region w ith max SUV of 3.3 likely reflecting residual lymph node or tumor at this level on axial image 86. Enlarging small pericardial effusion is seen. No new areas of abnormal hypermetabolic uptake are iden tified. ABDOMEN AND PELVIS: No new areas of suspicious hypermetabolic uptake are seen. Slightly low dense nod ular thickening to both adrenal glands without abnormal hypermetabolic uptake remains present. Normal excretion is seen. OSSEOUS STRUCTURES: No new areas of abnormal hypermetabolic uptake are identified. OTHER CT: There is air-fluid level in the left maxillary sinus on current study, correlate to acute a cute sinusitis. There is mild to moderate calcified plaque at both carotid bulbs. There is moderate calcified plaque of aorta extending into branch vessels. There are scattered pelvic phleboliths. IMPRESSION: Marked positive tumor response without abnormal hypermetabolic uptake in known left hilar neoplasm on current study. Suspect small focus of residual hypermetabolic uptake in subcarinal lymph node. There is stable uptake deep inferior right parotid gland which could reflect metastatic lymph node versus second primary neoplasm. Consider imaging guided fine-needle aspiration to assess this le angel if will alter treatment.
== END | disposition home or self-care (01) ==
LOC: RADPETMAIN 07:06
PROVIDERS: ATTEND Internal Medicine Hematology & Oncology
DX: C34.02 Malignant neoplasm of left main bronchus (principal); Z92.21 Personal history of antineoplastic chemotherapy
CPT/HCPCS: 78815; A9552

== ENCOUNTER → 2018-08-26 | Outpatient (CLI) | payer BC ==
--- NOTE | 2018-08-28 16:23 | PE ---
EXAMINATION TYPE: PET CT fusion skull to thigh DATE OF EXAM: 08/26/2018 COMPARISON: PET/CT dated 04/22/2018, CT chest dated 03/07/2018 and PET/CT dated 01/14/2018. HISTORY: Left lung carcinoma after biopsy on December 31, 2017 treated with chemotherapy and radiatio n last in 2018. TECHNIQUE: Following the intravenous administration of 13.42 mCi of F-18 FDG, whole body images are performed from the skull base to the midthigh. Images are reviewed on the computer in the coronal, a xial, and sagittal planes. Reconstructed rotating images are created on independent workstation and reviewed on the computer. A localization and attenuation correction CT is performed in conjunction with the PET scan. SCAN: Subsequent treatment strategy. Follow-up exam. FINDINGS: Abdominal background: 2.1 Mediastinal background 1.4 SKULL BASE AND NECK: Within the deep lobe of the right parotid gland there is a hyperattenuated or m etabolic similar appearing mass measuring approximately 9 mm (previous measurement of 8 mm). This has a maximum SUV of 7.8 and previously had a maximal SUV of 9.27. No new suspicious areas of hypermetabolic activity are seen within the skull base and neck. CHEST, MEDIASTINUM, AND HILAR REGION: There is an enlarging multiloculated pleural effusion, now mode rate with associated multifocal compressive atelectasis. There is no hypermetabolic activity througho ut the effusion, however in the associated consolidation emanating from the left hilum involving the perihilar region and left lower lobe there is hypermetabolic activity with a maximum SUV of 4.1. Ther e is again encasement of the left hilum. Overall the hypermetabolic consolidation has worsened from t he prior PET/CT. The mass blends along the mediastinum and is not measurable however a rough measurem ent in anterior posterior dimension of the left perihilar region on series 3 image 89 is 5.2. The mas s is difficult to separate from postobstructive atelectasis. Calcified left hilar lymph nodes are lik gene calcified from prior treatment prior granulomatous disease, as seen on the prior. Extensive bullo us emphysematous changes are noted with left hemidiaphragm volume loss. The previously seen paraesophageal focus is no longer present and may have been physiologic on the pr ior. There is continued enlargement of the moderate pericardial effusion without hypermetabolic activ ity. ABDOMEN AND PELVIS: No new suspicious hypermetabolic activity. Bilateral thickening of the adrenal gl ands again suggest adrenal gland hyperplasia. OSSEOUS STRUCTURES: No suspicious hypermetabolic activity. OTHER CT: Extensive atherosclerosis is noted of the abdominal aorta and its branches. Previously seen paranasal sinus disease has resolved in the interim. No new supraclavicular adenopathy is appreciate d. Calcification of the carotid bulbs is again noted but appears less than 50% stenosis. Left mediast inal deviation is secondary to left hemithorax volume loss and postobstructive atelectasis. The unenh anced abdominal viscera are grossly unremarkable other than splenules and probable biliary sludge zafar felton very small gallbladder calculi. No new evidence of adenopathy within the abdomen or pelvis. IMPRESSION: 1. Findings suggesting recurrence and/or progression of disease with new diffusely hypermetabolic lef t upper lobe and left lower lobe consolidations. 2. Interval worsening of the loculated left pleural effusion and postobstructive atelectasis. 3. No findings suspicious for metastasis are seen within the chest, abdomen, or pelvis other than the stable right parotid lesion that again could represent a secondary primary rather than metastasis.
== END | disposition home or self-care (01) ==
LOC: RADPETMAIN 14:59
PROVIDERS: ATTEND Internal Medicine Hematology & Oncology
DX: C34.02 Malignant neoplasm of left main bronchus (principal); J90 Pleural effusion, not elsewhere classified; J98.11 Atelectasis; K11.9 Disease of salivary gland, unspecified
CPT/HCPCS: 78815; A9552

== ENCOUNTER → 2018-09-01 | Day surgery (SDC) | payer BC ==
[~2018-09-01] MED LIST changes: -LIDOCAINE 2% INJ 20 MG/ML SQ ONE; +SODIUM CHLORIDE 0.9% 500 ML 500 ML in EMPTY BAG 1 BAG IV PRN
[2018-09-01 11:51] VITALS: TEMP 97.6
[2018-09-01 12:54] VITALS: BP 101/67; PULSE 96; RESP 20
--- NOTE | 2018-09-01 13:14 | XR ---
EXAMINATION TYPE: XR chest 1V portable DATE OF EXAM: 09/01/2018 COMPARISON: Chest CT March 07, 2018. PET CT August 26, 2018. Most recent chest x-ray August 16 HISTORY: Post left-sided thoracentesis TECHNIQUE: Single frontal view of the chest is obtained. FINDINGS: There is background chronic emphysematous change with hyperexpanded right lung redemonstra john. Tracheal shift of the left is again seen. There is persistent left-sided volume loss with hilar and lateral midlung opacity. There is left apical pleural thickening redemonstrated. There is left ba silar juxtaphrenic precluding redemonstrated. Cardiac silhouette size is stable and within normal mata its. No sizable pneumothorax. Osseous structures remain demineralized. IMPRESSION: No evidence of pneumothorax after left-sided thoracentesis. Chronic changes as detailed above not significantly changed from most recent x-ray. Presumed thoracentesis performed for diagnost ic purposes.
--- NOTE | 2018-09-11 13:37 | PCN ---
PROCEDURE NOTE The site of the procedure was on the left. PREOPERATIVE DIAGNOSIS: Left-sided pleural effusion. POSTOPERATIVE DIAGNOSIS: Left-sided pleural effusion. Indication Pleural effusion. A time-out was completed verifying correct patient, procedure, site, positioning, and implant (s) or special equipment if applicable. Ultrasound guidance was not used and appropriate fluid pocket was identified and marked. Patient was positioned, prepped and draped in usual sterile fashion. Lidocaine was used to anesthetize the area. A Thoracentesis catheter was introduced into the pleural space and fluid was removed. Blood loss was none. A chest x-ray was ordered to evaluate for pneumothorax. Total Fluid Removed 850 mL Color of Fluid Red, fresh fluid Fluid sent for appropriate laboratory tests. Patient tolerated the procedure well and there were no complications. This was done without ultrasound markings and a total of 850 mL of red fresh fluid was drained from the left lung without any complication. Chest x-ray showed no evidence of any pneumothorax. MMODL / IJN: [id number] /
== END | disposition home or self-care (01) ==
LOC: PROCWHC3 11:15
PROVIDERS: ATTEND Internal Medicine Critical Care Medicine
DX: J90 Pleural effusion, not elsewhere classified (principal); J44.9 Chronic obstructive pulmonary disease, unspecified; J96.11 Chronic respiratory failure with hypoxia; Z87.891 Personal history of nicotine dependence; Z85.118 Personal history of other malignant neoplasm of bronchus and lung; Z92.21 Personal history of antineoplastic chemotherapy; Z92.3 Personal history of irradiation; Z79.82 Long term (current) use of aspirin; Z79.51 Long term (current) use of inhaled steroids; Z79.899 Other long term (current) drug therapy
CPT/HCPCS: 88108; 88305; 71045; 32554; J2001

== ENCOUNTER → 2018-09-01 | Outpatient (CLI) | payer BC ==
--- NOTE | 2018-09-01 11:41 | US ---
EXAMINATION TYPE: US chest DATE OF EXAM: 09/01/2018 COMPARISON: NONE CLINICAL HISTORY: J90 PLEURAL EFFUSION. thoracentesis to follow TECHNIQUE: Targeted ultrasound of the posterior lower left EXAM MEASUREMENTS: Left Pleural Effusion pocket size: 9.9 cm Left skin surface to fluid distance: 2.7 cm Left side marked for possible thoracentesis outside the dept. Pulmonologists are able to review the images in the patient?s EMR. IMPRESSIONS: Left pleural effusion.
== END ==
LOC: RADUSWWP 10:59
PROVIDERS: ATTEND Internal Medicine Critical Care Medicine
DX: J90 Pleural effusion, not elsewhere classified (principal)
CPT/HCPCS: 76604

== ENCOUNTER 2018-09-11 10:16 | Day surgery (SDC) | payer BC ==
[2018-09-07 10:32] VITALS: BMI 18.8
[~2018-09-11 10:16] MED LIST changes: +DEXAMETHASONE SOD PHOSPHATE 10 MG/ML 1 ML VIAL IV ONE; +LACTATED RINGERS 1,000 ML IV SCH; +LIDOCAINE 1% 20 ML VIAL (10MG/ML) FOR IV START INTRADERMA PRN; +MIDAZOLAM 2 MG/2 ML VIAL IV PRN; +ONDANSETRON 4 MG/2 ML VIAL IVP ONE; +Pre Op ABX Message 1 EACH MISC MISCELLANE ONE; -SODIUM CHLORIDE 0.9% 500 ML 500 ML in EMPTY BAG 1 BAG IV PRN; +fentaNYL (PF) 50 MCG/ML 2 ML AMP IV PRN
[2018-09-11] MEDS ORDERED: LIDOCAINE 2% (PF) 20 MG/ML 10 ML AMP INHALATION STA (12:09)
[2018-09-11] MEDS ORDERED: ALBUTEROL NEB (CONC) 2.5 MG/0.5 ML INHALATION STA (12:10)
[2018-09-11] MEDS ORDERED: SCOPOLAMINE 1.5MG/72HR PATCH TRANSDERM ONE (12:13)
[2018-09-11] MEDS ORDERED: LIDOCAINE 2% (PF) 20 MG/ML 10 ML AMP INHALATION ONE (12:28)
[2018-09-11] MEDS ORDERED: SUCCINYLCHOLINE CHLORIDE 100 MG/5 ML SYR IV ONE (12:30)
[2018-09-11] MEDS ORDERED: PROPOFOL 10 MG/ML 20 ML VIAL IV ONE (12:30)
[2018-09-11] MEDS ORDERED: fentaNYL (PF) 50 MCG/ML 2 ML AMP ONE (12:30)
[2018-09-11] MEDS ORDERED: PHENYLEPHRINE-0.9% NACL SYG 1 MG/10 ML SYRINGE ONE (12:30)
[2018-09-11] MEDS ORDERED: LIDOCAINE 1% INJ 10MG/ML (20 ML MDV) ONE (12:30)
[2018-09-11] MEDS ORDERED: MIDAZOLAM 2 MG/2 ML VIAL ONE (12:30)
--- NOTE | 2018-09-11 13:14 | P.PCN ---
Date of Procedure: 09/11/18 Preoperative Diagnosis: non small cell lung cancer Postoperative Diagnosis: 1 narrowing of the lingular segment of the left upper lobe 2 history of small cell lung cancer Procedure(s) Performed: Flexible bronchoscopy, left upper lobe transbronchial biopsy, bronchioloalveolar lavage, endobronchial brushings Anesthesia: LISANDRO Surgeon: Carolyn Sparks Estimated Blood Loss (ml): 0 Pathology: other Condition: stable Disposition: same day Operative Findings: 58-year-old female patient with history of non-small cell lung cancer with successful response to combined chemoradiation therapy. Subsequently the patient started developing left-sided pleural effusion and she is post thoracentesis 2. A follow-up PET scan showed increased activity along the lingular segment of the left upper lobe. There was also some questionable irregularities within the lingular bronchus. For that reason the bronchoscopy was done looking for any tumor recurrence This procedure was done and operating room. The procedure including the potential complications was explained to the patient at length. The patient was brought into the operating room. The patient was induced and intubated and placed on a mechanical ventilator in the usual fashion. This was done by anesthesia service. Following that, I inserted the flexible bronchoscope was orotracheal tube and the procedure was done as the patient was being mechanically ventilated and the patient was adequately oxygenated and ventilated. The flexible bronchoscope was inserted through his orotracheal tube and was advanced into the lower trachea. The tip of the ET tube was in around 3 cm above the bronwyn. The distal one third of the trachea bilateral mainstem bronchi right upper lobe bronchus regular lobe bronchus and the right lower lobe bronchus were all within normal limits. Left mainstem bronchus was normal. The bronchoscope was then moved to the left upper lobe and the lingular segment was visualized and was somewhat scarred and narrowed probably related to previous radiation therapy. There was also some mucosal irregularities along the lingular bronchus I was able to insert my bronchoscope through the segment and the various segments of the lingula was seen including the left upper lobe and the left lower lobe. The left upper lobe bronchus occluding the apical posterior and anterior segments were patent and within normal limits. Examination of the left lower lobe bronchus was within normal limits. The bronchoscope was again most of the lingula and under direct visualization and the bronchial biopsies and endobronchial brushings of the lingual segment was done. Following that, a bronchioloalveolar lavage of the lingula was performed. Addendum of procedure chest bronchus biopsies of the lingula was done using fluoroscopic guidance. Opacities was seen in the peripheral lingula that showed also metabolic activity was biopsied. Multiple passes were obtained. No endobronchial bleeding was encountered. The patient tolerated the procedure well and the bronchoscope was removed and the patient was transferred recovery in a stable condition after being extubated. Chest x- ray will be done to rule out pneumothorax.
[2018-09-11] MEDS ORDERED: IV FLUID CONTINUATION 1,000 ML IV ONE (13:32)
--- NOTE | 2018-09-11 13:35 | XR ---
EXAMINATION TYPE: XR chest 1V portable DATE OF EXAM: 09/11/2018 COMPARISON: 09/01/2018 HISTORY: POST BRONCHOSCOPY TECHNIQUE: Frontal and lateral views of the chest are obtained. FINDINGS: Scattered senescent parenchymal changes noted. Hyperinflation compatible with COPD. No evidence for pneumothorax status post bronchoscopy. Masslike density in left lower lobe infiltrate /atelectasis with pleural effusion. Hyperinflation of the right lung. Heart size is stable. Mediastinal structures are stable and grossly unremarkable. No evidence for hilar prominence. Degenerative changes dorsal spine. IMPRESSION: 1. No evidence for pneumothorax status post bronchoscopy. Masslike density in left lower lobe infiltr ate/atelectasis with pleural effusion. Hyperinflation of the right lung.
[2018-09-11 13:38] VITALS: TEMP 97.2
--- NOTE | 2018-09-11 13:43 | FL ---
EXAMINATION TYPE: FL bronchoscopy DATE OF EXAM: 09/11/2018 COMPARISON: NONE HISTORY: Fluoroscopy time TECHNIQUE: Fluoroscopy. FINDINGS: 22 seconds of fluoroscopy utilized. IMPRESSION: As Above.
[2018-09-11 14:16] VITALS: BP 110/63; PULSE 95; RESP 17
== END 2018-09-11 14:42 | disposition home or self-care (01) ==
LOC: ORWHC2ENDO 10:16
PROVIDERS: ATTEND Internal Medicine Critical Care Medicine
DX: C34.92 Malignant neoplasm of unspecified part of left bronchus or lung (principal); J40 Bronchitis, not specified as acute or chronic; J84.10 Pulmonary fibrosis, unspecified; J44.9 Chronic obstructive pulmonary disease, unspecified; Z87.891 Personal history of nicotine dependence; Z92.21 Personal history of antineoplastic chemotherapy; Z92.3 Personal history of irradiation; M81.0 Age-related osteoporosis without current pathological fracture; Z88.6 Allergy status to analgesic agent; Z79.82 Long term (current) use of aspirin; Z79.51 Long term (current) use of inhaled steroids; Z79.899 Other long term (current) drug therapy
CPT/HCPCS: 94640; 88104; 88108; 88305; 71045; 31628; 31623; 31624; J2250; J1100; J2001 ×2; J2405; J3010; J2370; J0330; J2704

== ENCOUNTER → 2018-10-13 | Outpatient (CLI) | payer BC ==
--- NOTE | 2018-10-13 14:13 | CT ---
EXAMINATION TYPE: CT chest w con DATE OF EXAM: 10/13/2018 COMPARISON: PET/CT dated 08/26/[address] chest dated 03/07/2018 HISTORY: Follow-up lung cancer. CT DLP: 131.6 mGycm. Automated Exposure Control for Dose Reduction was Utilized. TECHNIQUE: CT scan of the thorax is performed following with IV Contrast, patient injected with 100 mL of Isovue M300. FINDINGS: LUNGS: In comparison to the prior PET/CT of 08/26/2018 there is improved degree of left perihilar and left upper lobe soft tissue density with air bronchograms. In largest dimension on soft tissue window s this currently measures approximately 4.2 x 4.0 cm on series 3 image 29 and 32 in greatest solid an terior to posterior and transverse dimensions. There is also improvement of the left pleural effusion now small but somewhat loculated as it is seen towards the apex and anteriorly. There is left hemithorax volume loss appreciated with leftward medi astinal shift. There is compensatory right lung hyperexpansion and extensive bilateral emphysematous change. Focal triangular atelectasis is seen within the right lower lobe peripherally on series 4 ary ge 47. Left lower lobe infrahilar reticular opacity is present on image 39, improved from the prior. No new pulmonary nodules or masses are seen. MEDIASTINUM: Peripherally calcified left hilar adenopathy suggest treated metastatic disease. No per icardial effusion is seen. OTHER: Multiple splenules are seen anterior to the [place] spleen. Spleen is within normal limits of s ize measuring 9.9 cm in craniocaudal dimension. Schmorl's node is again redemonstrated of a lower tho racic vertebrae without anterior superior vertebral body endplate height loss. Solitary hepatic lesio n appeared cystic on the prior exam of 03/07/2018 and is less well-defined on today's examination poss ibly even phase of contrast but does not appear increased or suspicious. Stable splenic lesion again may relate to a splenic lymphangioma or hemangioma. This is of low suspicion for metastasis. IMPRESSION: 1. Improved left perihilar and left upper lobe consolidation of the known non-small cell lung cancer decrease in size from the prior exam. There is also marked improvement in the left pleural effusion n ow small but slightly loculated. No new pulmonary nodules or mediastinal adenopathy. Solitary left in frahilar enlarged lymph node is calcified suggesting treated metastatic disease. 2. Left hemithorax volume loss with subsequent leftward mediastinal shift and compensatory hyperexpan angel of the right lung with underlying extensive emphysematous change.
== END | disposition home or self-care (01) ==
LOC: RADCTMAIN 12:36
PROVIDERS: ATTEND Internal Medicine Hematology & Oncology
DX: C34.02 Malignant neoplasm of left main bronchus (principal); R59.0 Localized enlarged lymph nodes; J43.9 Emphysema, unspecified; J90 Pleural effusion, not elsewhere classified; R93.89 Abnormal findings on diagnostic imaging of other specified body structures
CPT/HCPCS: 71260; Q9967

== ENCOUNTER → 2018-11-29 | Outpatient (CLI) | payer BC ==
--- NOTE | 2018-11-29 19:00 | CT ---
EXAMINATION TYPE: CT angio chest DATE OF EXAM: 11/29/2018 6:21 PM COMPARISON: 10/13/2018 HISTORY: chest pain, hx of lung ca CT DLP: 145.6 mGycm Automated exposure control for dose reduction was used. CONTRAST: CTA scan of the thorax is performed with IV Contrast, patient injected with 58 mL of Isovue 370, pulm onary embolism protocol. There are 3-D post processed images.. FINDINGS: There is left pleural effusion. There is volume loss in the left hemithorax with shift of heart and m ediastinum to the left side. There is increased density at the left hilum that is mixed attenuation a nd measures 4 x 3 cm consistent with treated lung cancer. There is 5 x 2.5 cm subcarinal lymph node i ncreased compared to last exam. There is 2 cm enlarged pretracheal lymph node. There is no flow in the left upper lobe pulmonary artery. This appears occluded at its origin. There is patency of the left lower lobe pulmonary artery. I see no filling defects in the right pulmonary a rteries. The heart size is normal. There is small pericardial effusion. The right lung is clear of consolidati on. There is diffuse pulmonary emphysema. IMPRESSION: NO EVIDENCE OF PULMONARY EMBOLISM. OCCLUDED LEFT UPPER LOBE PULMONARY ARTERY. THERE IS INCREASED MEDIASTINAL AND SUBCARINAL ADENOPATHY COMPARED TO LAST EXAM. THERE IS INCREASED DE NSITY AT THE LEFT PULMONARY HILUM COMPARED TO LAST EXAM CONSISTENT WITH PROGRESSION OF TUMOR. PLEURAL FLUID IS INCREASED. VOLUME LOSS SIMILAR TO OLD EXAM.
== END | disposition home or self-care (01) ==
LOC: RADCTMAIN 17:10
PROVIDERS: ATTEND Internal Medicine Critical Care Medicine
DX: I26.99 Other pulmonary embolism without acute cor pulmonale (principal); R59.0 Localized enlarged lymph nodes
CPT/HCPCS: 71275; Q9967

== ENCOUNTER → 2019-01-22 | Outpatient (CLI) | payer BC ==
--- NOTE | 2019-01-22 12:22 | CT ---
EXAMINATION TYPE: CT chest w con DATE OF EXAM: 01/22/2019 COMPARISON: Prior CT chest 11/29/2017 HISTORY: Lung Cancer CT DLP: 345 mGycm Automated exposure control for dose reduction was used. CONTRAST: CT scan of the chest is performed with IV Contrast, patient injected with 100 ml mL of Isovue 300. FINDINGS: LUNGS: The lungs are remarkable for volume loss in the left hemithorax with compensatory emphysema in the right hemithorax, possible chronic left pleural effusion again noted. Pleural parenchymal garduno es are similar to prior exam with air bronchograms in the left midlung likely related to posttreatmen t change There is no pleural effusion or pneumothorax seen. The tracheobronchial tree is patent. MEDIASTINUM: There are no greater than 1 cm hilar or mediastinal lymph nodes. Trace pericardial effus ion is seen. AORTA: No additional significant abnormality is seen as on prior. OTHER: Subcentimeter cystic focus within the right lobe of the liver stable and likely represent sma ll cysts, similar-appearing lesion present adjacent to the middle hepatic vein as on prior, cortical cysts suspected in the upper pole left kidney as on prior. Vague hypodensity axial image 48 within th e spleen is indeterminate, of questionable clinical significance. IMPRESSION: Posttreatment changes. Additional findings above.
== END ==
LOC: RADCTMAIN 10:49
PROVIDERS: ATTEND Internal Medicine Hematology & Oncology
DX: J43.9 Emphysema, unspecified (principal); C34.02 Malignant neoplasm of left main bronchus; Z98.890 Other specified postprocedural states; Z88.6 Allergy status to analgesic agent
CPT/HCPCS: 71260; Q9967

== ENCOUNTER → 2019-03-19 | Outpatient (CLI) | payer BC ==
--- NOTE | 2019-03-19 15:13 | XR ---
EXAMINATION TYPE: XR chest 2V DATE OF EXAM: 03/19/2019 COMPARISON: 11/29/2018 TECHNIQUE: PA and lateral views submitted. HISTORY: COPD and lung cancer FINDINGS: Hyperinflation suggests COPD. There is left-sided consolidation and pleural effusion. Nodular pleural -based mass or density along the left upper lobe. Findings stable. Volume loss on the left noted with mediastinal shifting. Hypertrophic and degenerative change of the spine. No pneumothorax. IMPRESSION: 1. COPD with diffuse left-sided consolidation and pleural effusion. Masslike area of nodular density along the mid left lung is stable from the exam of 11/29/2018. This appears to correspond to an area of consolidation noted by recent CT scan.
== END | disposition home or self-care (01) ==
LOC: RADXRMAIN 14:55
PROVIDERS: ATTEND Internal Medicine Hematology & Oncology
DX: J44.9 Chronic obstructive pulmonary disease, unspecified (principal); J90 Pleural effusion, not elsewhere classified
CPT/HCPCS: 71046

== ENCOUNTER → 2019-04-11 | Day surgery (SDC) | payer BC, OTHER ==
[2019-04-11 09:28] VITALS: TEMP 99.2
[2019-04-11 09:32] LABS: INR 0.9 (<1.2); Prothrombin Time 10.2 sec (9.0-12.0)
[2019-04-11 09:33] LABS: Mean Platelet Volume 7.1; Platelet Count 198 k/uL (150-450)
[2019-04-11 11:04] VITALS: RESP 18
[2019-04-11 11:35] VITALS: PULSE 114
[2019-04-11 12:08] VITALS: BP 108/66
--- NOTE | 2019-04-11 12:18 | XR ---
EXAMINATION TYPE: XR chest 1V portable DATE OF EXAM: 04/11/2019 COMPARISON: 04/11/2019 at 10:14 AM HISTORY: Status post left thoracentesis TECHNIQUE: Single frontal view of the chest is obtained. FINDINGS: There is persistent left hemithorax volume loss and known left midlung mass. Right lung is hyperinflated. Left basilar atelectasis with tenting of the left hemidiaphragm is noted. No postproc edural pneumothorax is seen. Trace left pleural effusion remains. Strand-like right basilar atelectas is is present. No acute osseous pathology. IMPRESSION: No postprocedural pneumothorax. Left hemithorax volume loss, mediastinal shift, bibasila r atelectasis, left midlung known mass, and right-sided pulmonary hyperinflation are all unchanged fr om the prior.
--- NOTE | 2019-04-11 12:34 | XR ---
EXAMINATION TYPE: XR chest 1V portable DATE OF EXAM: 04/11/2019 COMPARISON: 03/19/2019 HISTORY: Post left thoracentesis TECHNIQUE: Single frontal view of the chest is obtained. FINDINGS: There is interval reduction in amount pleural fluid on the left. Pleural-based density or mass is stable in the left upper lobe. No sizable pneumothorax. There is volume loss on the left and evidence of diffuse COPD. Subsegmental changes on the right are stable. IMPRESSION: 1. Interval reduction in amount pleural fluid on the left with no sizable pneumothorax. 2. Persistent bilateral lower lobe consolidation, left perihilar consolidation and probable left pleu ral based mass or thickening stable from prior x-ray.
--- NOTE | 2019-04-11 13:30 | US ---
Ultrasound-guided therapeutic and diagnostic thoracentesis DATE OF EXAM: 04/11/2019 CLINICAL HISTORY: Ascites The procedure was discussed with the patient. The risks, complications, benefits, and alternatives we re discussed and any questions were answered. Informed consent was obtained. The patient was placed supine on the ultrasound table and prepped and draped in the usual sterile fas hion. All elements of maximal barrier and sterile technique were utilized. Under ultrasound guidance, access into the left pleural space was obtained, via the thoracentesis catheter system and direct ultrasound guidance. Ap proximately 0.55 liters of straw-colored fluid was removed. All elements of maximal barrier technique and sterile technique utilized. The patient was stable throughout the procedure and remained stable upon discharge from Department of Radiology. IMPRESSION: 1. Successful therapeutic and diagnostic thoracentesis under ultrasound guidance.
== END | disposition home or self-care (01) ==
LOC: RADPROMAIN 08:52
PROVIDERS: ATTEND Internal Medicine Hematology & Oncology
DX: J90 Pleural effusion, not elsewhere classified (principal); R18.8 Other ascites; C34.02 Malignant neoplasm of left main bronchus
CPT/HCPCS: 32555; 71045; 85049; 85610; 88108; 88305; 88341; 88342